=== PATIENT | female | born 1945 | race Caucasian/White ===

== ENCOUNTER 2016-09-10 17:45 | Emergency (ER) | payer OTHER ==
[2016-09-10 18:09] VITALS: BP 137/84; PULSE 90; TEMP 98.7; BMI 38.4
[2016-09-10] MEDS ORDERED: LIDOCAINE 5% TOPICAL PATCH TP ONE (18:51)
[2016-09-10] MEDS ORDERED: traMADol HCL 50 MG TABLET PO ONE (18:51)
[2016-09-10] MEDS ORDERED: traMADol HCL 50 MG TABLET ONE (18:55)
[2016-09-10] MEDS ORDERED: LIDOCAINE 5% TOPICAL PATCH ONE (18:55)
--- NOTE | 2016-09-10 19:10 | PDOC ---
History of Present Illness - General Chief Complaint: Back Pain Stated Complaint: BACK PAIN Time Seen by Provider: 09/10/16 18:28 History Source: Patient - History of Present Illness Occurred: reports: other Pain Location: reports: back Past History - Past Medical History Allergies/Adverse Reactions: Allergies Allergy/AdvReac Type Severity Reaction Status Date / Time No Known Drug Allergies Allergy Verified 09/10/16 18:06 Home Medications: Ambulatory Orders Aspirin 81 mg PO DAILY 06/05/13 Atorvastatin Ca [Lipitor] 40 mg PO HS #0 tablet 06/06/13 Febuxostat [Uloric -] 40 mg PO HS 09/25/13 Nebivolol [Bystolic -] 5 mg PO HS 11/05/14 Valsartan [Diovan] 320 mg PO HS 11/05/14 Alprazolam [Xanax] 0.5 mg PO PRN 07/17/15 Oxycodone HCl [Oxycodone HCl ER] 10 mg PO TID 07/17/15 Zolpidem Tartrate [Ambien] 10 mg PO HS 07/17/15 Lidocaine 5% Patch [Lidoderm Patch -] 1 patch TP DAILY #14 patch 09/10/16 Anemia: No Asthma: No Cancer: No Cardiac Disorders: No CVA: No COPD: No CHF: No Dementia: No Diabetes: Yes (Borderline/No meds/Diet managed) GI Disorders: No Disorders: No HTN: Yes Hypercholesterolemia: Yes Kidney Stones: Yes Liver Disease: No Seizures: No Thyroid Disease: No - Surgical History Abdominal Surgery: No Appendectomy: No Cardiac Surgery: No Cholecystectomy: Yes (1979) Lung Surgery: No Neurologic Surgery: No Orthopedic Surgery: Yes (Bilateral knee replacement-10 YEARS AGO) - Family Disease History Family Disease History: Other: Sister (back sx) - Immunization History Immunization Up to Date: Yes - Psycho/Social/Smoking Cessation Hx Anxiety: No Suicidal Ideation: No Smoking Status: No Smoking History: Never smoked Have you smoked in the past 12 months: No Number of Cigarettes Smoked Daily: 0 Hx Alcohol Use: No Drug/Substance Use Hx: No Substance Use Type: None Hx Substance Use Treatment: No Trauma Specific PMHX - Complaint Specific PMHX Arthritis: No Back Injury: Yes Review of Systems - Review of Systems Constitutional: No: Chills, Fever, Unexplained wgt Loss : No: Burning, Dysuria, Hematuria Musculoskeletal: Yes: Back Pain Neurological: No: Numbness, Tingling, Weakness *Physical Exam - Vital Signs Last Vital Signs Temp Pulse Resp BP Pulse Ox 98.7 F 90 19 137/84 96 09/10/16 18:07 09/10/16 18:07 09/10/16 18:07 09/10/16 18:07 09/10/16 18:07 - Physical Exam General Appearance: Yes: Appropriately Dressed, Mild Distress HEENT: positive: Normal Voice Neck: positive: Supple Respiratory/Chest: negative: Respiratory Distress Gastrointestinal/Abdominal: positive: Soft. negative: Tender Musculoskeletal: positive: Vertebral Tenderness (to L mid back). negative: CVA Tenderness Extremity: positive: Normal Inspection Integumentary: positive: Dry, Warm Neurologic: positive: Fully Oriented, Alert, Normal Mood/Affect ED Treatment Course - Medications Given in the ED: ED Medications Discontinued Medications Generic Name Dose Route Start Last Admin Trade Name Seamusq PRN Reason Stop Dose Admin Lidocaine 1 patch 09/10/16 18:51 09/10/16 19:00 Lidoderm Patch - TP 09/10/16 18:52 1 patch ONCE ONE Administration Tramadol HCl 50 mg 09/10/16 18:51 09/10/16 19:00 Ultram - PO 09/10/16 18:52 50 mg ONCE ONE Administration Medical Decision Making - Medical Decision Making 09/10/16 19:05 71 yo F, h/o HTN, HLD, DM, renal stones, chronic L mid back pain w/ DJD and herniated disc to L5-S1 as per records on MRI in the past, currently f/u with Dr Maharaj of pain management, p/w usual back pain x 3 weeks. Stats she saw Dr. Maharaj several times in the past 3 weeks and given "multiple injections in my back" as per patient, with no relief. Taking percocet at home also with no improvement in pain. States pain not simian to her kidney stones. No dysuria, hematuria, n/v/f/c. Saw her pmd yesterday and has US of her kidneys but does not yet know results. No lower extremity weakness, saddle anesthesia, bladder or bowel incontinence. No unexplained weight loss See exam Acute on chronic back pain No red flags at this time -pain control in ED and reassess 09/10/16 19:30 Pt reports some improvement in pain and requesting discharge. Rx for lidoderm sent to pharmacy. Pt to continue f/u with pain MD *DC/Admit/Observation/Transfer Diagnosis at time of Disposition: Mid back pain on left side - Discharge Dispostion Disposition: HOME Condition at time of disposition: Improved - Prescriptions Prescriptions: Lidocaine 5% Patch [Lidoderm Patch -] 1 patch TP DAILY #14 patch - Patient Instructions Printed Discharge Instructions: DI for Thoracic Back Pain Additional Instructions: Use lidoderm patches as directed Continue to follow up with your pain management doctor
[2016-09-10] MEDS ORDERED: LIDOCAINE PATCH REMOVAL MC SCH (22:00)
== END 2016-09-10 19:39 | disposition home or self-care (01) ==
LOC: JERFT 17:45
DX: M54.89 Other dorsalgia (principal); M51.37 Other intervertebral disc degeneration, lumbosacral region; M51.27 Other intervertebral disc displacement, lumbosacral region; I10 Essential (primary) hypertension; E11.9 Type 2 diabetes mellitus without complications; E78.00 Pure hypercholesterolemia, unspecified; Z87.442 Personal history of urinary calculi
CPT/HCPCS: 99281-25

== ENCOUNTER 2016-09-14 15:57 | Emergency (ER) | payer OTHER ==
[2016-09-14 16:29] VITALS: BMI 38.6
[2016-09-14] MEDS ORDERED: diazePAM 2 MG TABLET PO ONE (18:09)
[2016-09-14] MEDS ORDERED: KETOROLAC TROMETHAMINE 60 MG/2 ML VIAL IM ONE (18:09)
[2016-09-14 18:17] LABS: URINE APPEARANCE CLEAR; URINE BILIRUBIN NEGATIVE (NEGATIVE); URINE BLOOD NEGATIVE (NEGATIVE); URINE COLOR YELLOW; URINE GLUCOSE (UA) NEGATIVE (NEGATIVE); URINE KETONE NEGATIVE (NEGATIVE); URINE LEUK ESTERASE NEGATIVE (NEGATIVE); URINE NITRITE NEGATIVE (NEGATIVE); URINE PROTEIN NEGATIVE (NEGATIVE); URINE UROBILINOGEN NEGATIVE mg/dL (0.2-1.0)
--- NOTE | 2016-09-14 18:24 | PDOC ---
History of Present Illness - General History Source: Patient Exam Limitations: No Limitations - History of Present Illness Initial Comments: 09/14/16 18:47 The patient is a 71 year old female, with a significant past medical history of HTN, DM, HLD who presents to the emergency department with mid- lower back pain for the past 3 weeks. The patient states her back pain radiates to her L leg and is exacerbated with any movement. Patient reports taking Motrin and percocet 4-5x/day with minimal relief. Patient also reports dysuria for the past 3 weeks that has been resolving. Patient presents to the ED for further evaluation. She denies chest pain, headache or dizziness. She denies fever, chills, abdominal pain, nausea, vomit, diarrhea or constipation. She denied frequency, urgency or hematuria. Allergies: NKA Past surgical history: Cholecystectomy, Bilateral knee replacement Social history: None PCP: Dr. Tran <Erna Gonzalez - Last Filed: 09/14/16 18:46> <Romie Hawkins - Last Filed: 09/15/16 07:57> - General Chief Complaint: Back Pain Stated Complaint: BACK PAIN Time Seen by Provider: 09/14/16 17:37 Past History <Erna Gonzalez - Last Filed: 09/14/16 18:46> - Past Medical History Anemia: No Asthma: No Cancer: No Cardiac Disorders: No CVA: No COPD: No CHF: No Dementia: No Diabetes: Yes (Borderline/No meds/Diet managed) GI Disorders: No Disorders: No HTN: Yes Hypercholesterolemia: Yes Kidney Stones: Yes Liver Disease: No Seizures: No Thyroid Disease: No - Surgical History Abdominal Surgery: No Appendectomy: No Cardiac Surgery: No Cholecystectomy: Yes (1979) Lung Surgery: No Neurologic Surgery: No Orthopedic Surgery: Yes (Bilateral knee replacement-10 YEARS AGO) - Family Disease History Family Disease History: Other: Sister (back sx) - Immunization History Immunization Up to Date: Yes - Psycho/Social/Smoking Cessation Hx Anxiety: No Suicidal Ideation: No Smoking Status: No Smoking History: Never smoked Have you smoked in the past 12 months: No Number of Cigarettes Smoked Daily: 0 Information on smoking cessation initiated: No Hx Alcohol Use: No Drug/Substance Use Hx: No Substance Use Type: None Hx Substance Use Treatment: No <Romie Hawkins - Last Filed: 09/15/16 07:57> - Past Medical History Allergies/Adverse Reactions: Allergies Allergy/AdvReac Type Severity Reaction Status Date / Time No Known Drug Allergies Allergy Verified 09/14/16 16:18 Home Medications: Ambulatory Orders Aspirin 81 mg PO DAILY 06/05/13 Atorvastatin Ca [Lipitor] 40 mg PO HS #0 tablet 06/06/13 Febuxostat [Uloric -] 40 mg PO HS 09/25/13 Nebivolol [Bystolic -] 5 mg PO HS 11/05/14 Valsartan [Diovan] 320 mg PO HS 11/05/14 Alprazolam [Xanax] 0.5 mg PO PRN 07/17/15 Oxycodone HCl [Oxycodone HCl ER] 10 mg PO TID 07/17/15 Zolpidem Tartrate [Ambien] 10 mg PO HS 07/17/15 Lidocaine 5% Patch [Lidoderm Patch -] 1 patch TP DAILY #14 patch 09/10/16 Trauma Specific PMHX - Complaint Specific PMHX Arthritis: No Back Injury: Yes <Romie Hawkins - Last Filed: 09/15/16 07:57> Review of Systems - Review of Systems Able to Perform ROS?: Yes Comments:: 09/14/16 18:47 CONSTITUTIONAL: No reported: Fever, Chills, Diaphoresis, Generalized Weakness, Malaise, Loss of Appetite HEENT: No reported: Rhinorrhea, Nasal Congestion, Throat Pain, Throat Swelling, Difficulty Swallowing, Mouth Swelling, Ear Pain, Eye Pain, Visual Changes CARDIOVASCULAR: No reported: Chest Pain, Syncope, Palpitations, Irregular Heart Rate, Lightheadedness, Peripheral Edema RESPIRATORY: No reported: Cough, Shortness of Breath, SOB with Exertion, Orthopnea, Wheezing , Stridor, Hemoptysis GASTROINTESTINAL: No reported: Abdominal pain, Abdominal Distension, Nausea, Vomiting, Diarrhea, Constipation, Melena, Hematochezia GENITOURINARY: No reported: Dysuria, Frequency, Urgency, Hesitancy, Flank Pain, Genital Pain MUSCULOSKELETAL:+ Back pain No reported: Myalgia, Arthralgia, Joint Swelling, Neck Pain SKIN: No reported: Rash, Itching, Pallor HEMATOLOGIC/IMMUNOLOGIC: No reported: Easy Bleeding, Easy Bruising, Lymphadenopathy, Frequent infections ENDOCRINE: No reported: Unexplained Weight Gain, Unexplained Weight Loss, Heat Intolerance , Cold Intolerance NEUROLOGIC: No reported: Headache, Focal Weakness, Paresthesias, Vertigo, Lightheadedness, Unsteady Gait, Seizure, Mental Status Changes, Incontinence PSYCHIATRIC: No reported: Anxiety, Depression <CarlosErna - Last Filed: 09/14/16 18:46> *Physical Exam - Vital Signs Last Vital Signs Temp Pulse Resp BP Pulse Ox 98.0 F 86 16 141/75 95 09/14/16 16:19 09/14/16 16:19 09/14/16 16:19 09/14/16 16:19 09/14/16 16:19 - Physical Exam Comments: 09/14/16 18:47 GENERAL: The patient is awake, alert, and fully oriented, Nontoxic - in no acute distress. HEAD: Normocephalic, atraumatic. EYES: extraocular movements intact, sclera anicteric, conjunctiva clear. ENT: Normal voice, Moist mucous membranes. NECK: Normal range of motion, No JVD LUNGS: Breath sounds equal, clear to auscultation bilaterally. No wheezes, no rhonchi, no rales. HEART: Regular rate and rhythm, normal S1 and S2 without murmur, rub or gallop. ABDOMEN: Soft, nontender, normoactive bowel sounds. No guarding, no rebound. No masses. No CVA tenderness EXTREMITIES: Normal range of motion, no edema. No clubbing or cyanosis. No cords , erythema, or tenderness.+Focal tenderness to mid to lower back. NEUROLOGICAL: No facial asymmetry, Normal speech, normal gait. PSYCH: Normal mood, normal affect. SKIN: Warm, Dry, normal turgor. <Erna Gonzalez - Last Filed: 09/14/16 18:46> - Vital Signs Last Vital Signs Temp Pulse Resp BP Pulse Ox 98.0 F 86 16 141/75 95 09/14/16 16:19 09/14/16 16:19 09/14/16 16:19 09/14/16 16:19 09/14/16 16:19 <Romie Hawkins - Last Filed: 09/15/16 07:57> ED Treatment Course - ADDITIONAL ORDERS Additional order review: Laboratory Results 09/14/16 18:00 Urine Color Yellow Urine Appearance Clear Urine pH 5.0 D Urine Protein Negative Urine Glucose (UA) Negative Urine Ketones Negative Urine Blood Negative Urine Nitrite Negative Urine Bilirubin Negative Urine Urobilinogen Negative Ur Leukocyte Esterase Negative <Erna Gonzalez - Last Filed: 09/14/16 18:46> Medical Decision Making - Medical Decision Making 09/14/16 18:10 71y F hx of chronic back pain presents with atraumatic L sided back pain that is similar in nature to previous episodes. No numbnes/tingling/weakness, urinary or bwel incontinence. +dysuria at onset of symptoms, but has since resolved. n ofever/chills. on exam pt has focal tenderness in the L lumbar region, no midline tenderness. will give toradol and small dose of valium as i suspect this is a muscle spasm 09/14/16 19:42 pt signed out to dr. Ramsey to reassess the pt <Romie Hawkins - Last Filed: 09/15/16 07:57> *DC/Admit/Observation/Transfer - Attestations Scribe Attestion: 09/14/16 18:47 Documentation prepared by Erna Gonzalez, acting as medical logistics specialist for Romie Hawkins MD <Erna Gonzalez - Last Filed: 09/14/16 18:46> <Romie Hawkins - Last Filed: 09/15/16 07:57> Diagnosis at time of Disposition: Eloped - Discharge Dispostion Disposition: ELOPED - Referrals Referrals: Quiana Tran MD [Primary Care Provider] -
[2016-09-14 20:04] VITALS: BP 135/72; PULSE 82; TEMP 98.1
== END 2016-09-14 20:39 | disposition left against medical advice (07) ==
LOC: JER 15:57
DX: M54.5 Low back pain (principal); I10 Essential (primary) hypertension; E78.00 Pure hypercholesterolemia, unspecified; E11.9 Type 2 diabetes mellitus without complications
CPT/HCPCS: 81003; 87086; 99282-25

== ENCOUNTER 2018-11-06 11:12 | Emergency (ER) | payer OTHER ==
[2018-11-06 11:20] VITALS: BP 157/80; PULSE 81; BMI 41.5
[2018-11-06 11:42] VITALS: TEMP 99.1
[2018-11-06] MEDS ORDERED: morphine CARPU-JECT 2 MG/1 ML DISP.SYRIN IM ONE (12:01)
--- NOTE | 2018-11-06 12:06 | PDOC ---
History of Present Illness - General Chief Complaint: Injury Stated Complaint: FALL Time Seen by Provider: 11/06/18 12:06 History Source: Patient Exam Limitations: No Limitations - History of Present Illness Initial Comments: 11/06/18 12:24 Bruce Houston is a 73yF w PMHx w PMHx HTN HLD DM chronic pain presenting w head injury s/p fall. 1 hour ago, tripped over something in garage, fell down, hitting L temporal head, L chest. Currently has pain at L chest underneath breast, L antecubital region, neck, midline and paraspinal thoracic regions. No LOC, vomiting. Did not attempt to ambulate after fall. Denies fever, headache, SOB, AB pain, numbness/tingling. Not on blood thinners. Takes up to 3 percocets PRN daily for chronic pain. Past History - Past Medical History Allergies/Adverse Reactions: Allergies Allergy/AdvReac Type Severity Reaction Status Date / Time No Known Drug Allergies Allergy Verified 11/06/18 11:53 Home Medications: Ambulatory Orders Aspirin 81 mg PO DAILY 06/05/13 Atorvastatin Ca [Lipitor] 40 mg PO HS #0 tablet 06/06/13 Febuxostat [Uloric -] 40 mg PO HS 09/25/13 Nebivolol [Bystolic -] 5 mg PO HS 11/05/14 Alprazolam [Xanax] 0.5 mg PO PRN 07/17/15 Oxycodone HCl [Oxycodone HCl ER] 10 mg PO TID 07/17/15 Zolpidem Tartrate [Ambien] 10 mg PO HS 07/17/15 Lidocaine 5% Patch [Lidoderm Patch -] 1 patch TP DAILY #14 patch 09/10/16 Anemia: No Asthma: No Cancer: No Cardiac Disorders: No CVA: No COPD: No CHF: No Dementia: No Diabetes: Yes (Borderline/No meds/Diet managed) GI Disorders: No Disorders: No HTN: Yes Hypercholesterolemia: Yes Kidney Stones: Yes Liver Disease: No Seizures: No Thyroid Disease: No - Surgical History Abdominal Surgery: No Appendectomy: No Cardiac Surgery: No Cholecystectomy: Yes (1979) Lung Surgery: No Neurologic Surgery: No Orthopedic Surgery: Yes (Bilateral knee replacement-10 YEARS AGO) - Family Disease History Family Disease History: Other: Sister (back sx) - Immunization History Immunization Up to Date: Yes - Suicide/Smoking/Psychosocial Hx Smoking Status: No Smoking History: Never smoked Have you smoked in the past 12 months: No Number of Cigarettes Smoked Daily: 0 Hx Alcohol Use: No Drug/Substance Use Hx: No Substance Use Type: None Hx Substance Use Treatment: No Trauma Specific PMHX - Complaint Specific PMHX Arthritis: No Back Injury: Yes Review of Systems - Review of Systems Constitutional: No: Chills, Fever HEENTM: No: Eye Pain, Recent change in vision, Nose Pain, Throat Pain, Mouth Pain Respiratory: No: Cough, Shortness of Breath Cardiac (ROS): Yes: Chest Pain (Left). No: Palpitations, Syncope ABD/GI: No: Abdominal Distended, Constipated, Diarrhea, Nausea, Vomiting : No: Burning, Dysuria, Discharge, Flank Pain, Hematuria, Incontinence Musculoskeletal: Yes: Back Pain (thoracic). No: Joint Pain, Muscle Pain, Muscle Weakness Integumentary: No: Bruising, Flushing, Lesions Neurological: No: Headache, Numbness, Paresthesia, Seizure, Tingling, Tremors, Weakness Psychiatric: No: Anxiety, Depression, Stressors Endocrine: No: Excessive Sweating, Flushing, Intolerance to Cold, Intolerance to Heat Hematologic/Lymphatic: No: Anemia, Blood Clots, Easy Bleeding *Physical Exam - Vital Signs Last Vital Signs Temp Pulse Resp BP Pulse Ox 99.1 F 81 18 157/80 96 11/06/18 11:37 11/06/18 11:18 11/06/18 11:18 11/06/18 11:18 11/06/18 11:18 - Physical Exam General Appearance: Yes: Nourished, Appropriately Dressed. No: Apparent Distress HEENT: positive: EOMI, LACHELLE, Normal Voice, Hearing Grossly Normal. negative: Scleral Icterus (R), Scleral Icterus (L), Nasal Congestion, Rhinorrhea Neck: positive: Trachea midline, Supple, Tender lateral, Tender midline. negative: Rigid Respiratory/Chest: positive: Chest Tender (L chest underneath breast tissue, L antecubital region), Lungs Clear, Normal Breath Sounds. negative: Respiratory Distress, Crackles, Rales, Rhonchi, Stridor, Wheezing Cardiovascular: positive: Regular Rhythm, Regular Rate, S1, S2. negative: Edema , Murmur Gastrointestinal/Abdominal: positive: Normal Bowel Sounds, Flat, Soft. negative : Tender, Organomegaly, Hernia Musculoskeletal: positive: Vertebral Tenderness (cervical, thoracic), Other (L thoracic paraspinal tenderness, no step-offs) Extremity: positive: Normal Capillary Refill Integumentary: positive: Normal Color Neurologic: positive: lead ingot molder II-XII NML intact, Fully Oriented, Alert, Normal Mood/ Affect, Normal Response, Motor Strength 5/5, Respond to painful stimul, Responsive. negative: Sensory Deficit, Confused, Disoriented Medical Decision Making - Medical Decision Making 11/06/18 12:28 Head c-spine chest thoracic CT - no acute bleed/infarct/fracture/subluxation, multilevel degenerative disc disease, facet hypertrophy. Focal opacity in right upper lobe abutting fissure 2x2cm, recommend follow up CT 2-3weeks. 2 morphine did not help. Ordered 1 percocet C-collar placed for potential cervical injury. Taken off after CT cleared Bruce Houston is a 73yF w PMHx w PMHx HTN HLD DM chronic pain presenting w head injury s/p mechanical fall. Pain likely MSK strain. Neuro intact. Clear breath sounds all lung mitchell, normal O2 sats lowering concern for pneumothorax. Head/c -spine/chest/thoracic CT shows no acute bleed/infarct/fracture/subluxation. C- collar temporarily placed for potential cervical injury, taken off after CT cleared. Given 2 morphine, 1 percocet for pain relief. Pt notified about focal lung opacity on imaging. D/c home w instructions for PCP f/u for imaging finding. *DC/Admit/Observation/Transfer Diagnosis at time of Disposition: Musculoskeletal pain, Opacity of lung on imaging study Accidental fall Qualifiers: Encounter type: initial encounter Qualified Code(s): W19.XXXA - Unspecified fall, initial encounter - Discharge Dispostion Disposition: HOME Condition at time of disposition: Improved Decision to Admit order: No - Referrals Referrals: Quiana Tran MD [Primary Care Provider] - - Patient Instructions Printed Discharge Instructions: How to Prevent Falls Additional Instructions: You were seen for chest pain after a fall. Your imaging does not show any bleeding or fracture. A small spot was found on your lung images Please follow up with your primary care doctor regarding your imaging finding. Take tylenol or ibuprofen if you continue to have pain. Come back to the ED if you have worsening pain, vomit, or have trouble breathing - Post Discharge Activity
[2018-11-06] MEDS ORDERED: MORPHINE SULFATE 2 MG/ML VIAL ONE (12:08)
--- NOTE | 2018-11-06 12:34 | PDOC ---
Attending Attestation - Resident Resident Name: Dayton De La Rosa - ED Attending Attestation I have performed the following: I have examined & evaluated the patient, The case was reviewed & discussed with the resident, I agree w/resident's findings & plan, Exceptions are as noted - HPI HPI: 11/06/18 12:31 73 F with h/o HTN, HLD, DM, chronic pain, presenting to ED after trip and fal. Pt states that she tripped over a piece of wood in her garage, falling onto her L side. Pt endorses headstrike without LOC. Now complains of pain in her L ribcage, neck, and upper back. Pt denes SOB. Denies weakness/numbness in any extremity. Denies inconinence. - Physicial Exam PE: 11/06/18 12:33 "GENERAL: Awake, alert, and fully oriented, in no acute distress. HEAD: No signs of trauma EYES: PERRLA, EOMI, sclera anicteric, conjunctiva clear ENT: Auricles normal inspection, hearing grossly normal, nares patent, oropharynx clear without exudates. Moist mucosa NECK: + cervical and thoracic paraspinal TTP, no stepoffs, Normal ROM, supple, no lymphadenopathy, JVD, or masses LUNGS: Breath sounds equal, clear to auscultation bilaterally. No wheezes, and no crackles HEART: Regular rate and rhythm, normal S1 and S2, no murmurs, rubs or gallops ABDOMEN: Soft, nontender, normoactive bowel sounds. No guarding, no rebound. No masses EXTREMITIES: Normal range of motion, no edema. No clubbing or cyanosis. No cords, erythema, or tenderness NEUROLOGICAL: Cranial nerves II through XII intact. 5/5 strength and sensation in all extremities, Normal speech, normal gait, normal cerebellar function SKIN: Warm, Dry, normal turgor, no rashes or lesions noted. - Medical Decision Making 11/06/18 12:34 73 F with mechanical fall. - CT head/c-spine/t-sine - CT chest 11/06/18 14:40 CTs unremarkable Lung nodule noted, pt informed and instructed to f/u with PMD Pt is well appearing, with normal vitals. Clinically stable for DC at this time. I discussed the physical exam findings, ancillary test results and final diagnoses with the patient. I answered all of the patient's questions. The patient was satisfied with the care received and felt comfortable with the discharge plan and treatment plan. The patient agrees to follow up with the primary care physician within 24-72 hours.
== END 2018-11-06 15:20 | disposition home or self-care (01) ==
LOC: JER 11:12
PROC: 3E023NZ Introduction of Analgesics, Hypnotics, Sedatives into Muscle, Percutaneous Approach (ICD-10-PCS; principal; 2018-11-06)
DX: S09.8XXA Other specified injuries of head, initial encounter (principal); M54.2 Cervicalgia; M54.6 Pain in thoracic spine; R07.9 Chest pain, unspecified; R91.8 Other nonspecific abnormal finding of lung field; W01.0XXA Fall on same level from slipping, tripping and stumbling without subsequent striking against object, initial encounter; Y93.89 Activity, other specified; Y92.015 Private garage of single-family (private) house as the place of occurrence of the external cause; Y99.8 Other external cause status; I10 Essential (primary) hypertension; E78.5 Hyperlipidemia, unspecified; E11.9 Type 2 diabetes mellitus without complications
CPT/HCPCS: 70450-TC; 71250-TC; 72125-TC; 72128-TC; 96372; 99282-25

== ENCOUNTER 2019-01-08 08:57 | Emergency (ER) | payer OTHER ==
[2019-01-08 09:10] VITALS: BP 172/80; PULSE 73; TEMP 98.1; BMI 41.8
[2019-01-08] MEDS ORDERED: morphine CARPU-JECT 4 MG/1 ML DISP.SYRIN IM ONE (09:13)
[2019-01-08] MEDS ORDERED: ONDANSETRON *ODT* 4 MG TABLET SL ONE (09:16)
--- NOTE | 2019-01-08 09:24 | PDOC ---
History of Present Illness - General Chief Complaint: Chronic pain Stated Complaint: BACK PAIN Time Seen by Provider: 01/08/19 09:10 History Source: Patient - History of Present Illness Occurred: reports: other Severity: reports: moderate Pain Location: reports: back Past History - Past Medical History Allergies/Adverse Reactions: Allergies Allergy/AdvReac Type Severity Reaction Status Date / Time No Known Drug Allergies Allergy Verified 01/08/19 09:07 Home Medications: Ambulatory Orders Aspirin 81 mg PO DAILY 06/05/13 Atorvastatin Ca [Lipitor] 40 mg PO HS #0 tablet 06/06/13 Febuxostat [Uloric -] 40 mg PO HS 09/25/13 Nebivolol [Bystolic -] 5 mg PO HS 11/05/14 Alprazolam [Xanax] 0.5 mg PO PRN 07/17/15 Oxycodone HCl [Oxycodone HCl ER] 10 mg PO TID 07/17/15 Zolpidem Tartrate [Ambien] 10 mg PO HS 07/17/15 Lidocaine 5% Patch [Lidoderm Patch -] 1 patch TP DAILY #14 patch 09/10/16 Docusate Sodium [Colace] 100 mg PO DAILY #30 capsule 01/08/19 Oxycodone HCl/Acetaminophen [Percocet 5-325 mg Tablet] 1 - 2 tab PO Q6H #20 tab MDD 4 doses 01/08/19 Anemia: No Asthma: No Cancer: No Cardiac Disorders: No CVA: No COPD: No CHF: No Dementia: No Diabetes: Yes (Borderline/No meds/Diet managed) GI Disorders: No Disorders: No HTN: Yes Hypercholesterolemia: Yes Kidney Stones: Yes Liver Disease: No Seizures: No Thyroid Disease: No Other medical history: chronic back pain - Surgical History Abdominal Surgery: No Appendectomy: No Cardiac Surgery: No Cholecystectomy: Yes (1979) Lung Surgery: No Neurologic Surgery: No Orthopedic Surgery: Yes (Bilateral knee replacement-10 YEARS AGO) - Immunization History Immunization Up to Date: Yes - Psycho Social/Smoking Cessation Hx Smoking Status: No Smoking History: Unknown if ever smoked Have you smoked in the past 12 months: No Number of Cigarettes Smoked Daily: 0 Hx Alcohol Use: No Drug/Substance Use Hx: No Substance Use Type: None Hx Substance Use Treatment: No Trauma Specific PMHX - Complaint Specific PMHX Arthritis: No Back Injury: Yes Review of Systems - Review of Systems Constitutional: No: Chills, Fever ABD/GI: Yes: Nausea. No: Vomiting, Abdominal cramping : No: Burning, Dysuria, Flank Pain, Hematuria *Physical Exam - Vital Signs Last Vital Signs Temp Pulse Resp BP Pulse Ox 98.1 F 73 18 172/80 H 95 01/08/19 09:07 01/08/19 09:07 01/08/19 09:07 01/08/19 09:07 01/08/19 09:07 - Physical Exam General Appearance: Yes: Appropriately Dressed, Moderate Distress HEENT: positive: Normal Voice Neck: positive: Supple Respiratory/Chest: negative: Respiratory Distress Gastrointestinal/Abdominal: positive: Soft. negative: Tender, Pulsatile Mass Musculoskeletal: negative: CVA Tenderness, Vertebral Tenderness Extremity: positive: Normal Inspection Integumentary: positive: Dry, Warm Neurologic: positive: Fully Oriented, Alert, Normal Mood/Affect, Motor Strength 5/5 Medical Decision Making - Medical Decision Making 01/08/19 09:17 73-year-old female history of HTN, HLD, DM, renal stone, chronic lower back pain with multiple disc bulge with nerve impingement to LS spine on MRI 12/2018 , BIB daughter for pt's usual lower back pain. Patient states she was seen by her pain MD 3 days ago and given an injection which usually helps but this time states pain persists. Limited to lower back with no acute sensory changes, lower extremity weakness or incontinence. States percocet has helped her pain in the past but has since ran out. States since in ED she has become nauseous but states she usually get nauseous when pain is severe. No dysuria, hematuria fever or chills see exam Acute on chronic LBP, unlikely renal colic No neuro sxs No infectious sxs S/p injection by pain MD 3 days ago w/ no relief Ran out her percocet Hu uncomfortable here but ambulatory w/ no e/o red flags, i.e cauda equina, dissection, etc -pain control>reassess 01/08/19 09:31 01/08/19 10:36 Patient reports feeling significantly better with morphine and requesting discharge. Dc with pain control. To continue f/u with pain management Discharge - Discharge Information Problems reviewed: Yes Clinical Impression/Diagnosis: Low back pain Qualifiers: Chronicity: chronic Back pain laterality: unspecified Sciatica presence: without sciatica Qualified Code(s): M54.5 - Low back pain Condition: Improved Disposition: HOME - Additional Discharge Information Prescriptions: Docusate Sodium [Colace] 100 mg PO DAILY #30 capsule Oxycodone HCl/Acetaminophen [Percocet 5-325 mg Tablet] 1 - 2 tab PO Q6H #20 tab MDD 4 doses - Follow up/Referral - Patient Discharge Instructions Patient Printed Discharge Instructions: DI for Low Back Pain Additional Instructions: Take medication as prescribed and follow-up with your pain doctor this week Return to ER for worsening of symptoms as discussed today - Post Discharge Activity
== END 2019-01-08 10:00 | disposition home or self-care (01) ==
LOC: JER 08:57
PROC: 3E023NZ Introduction of Analgesics, Hypnotics, Sedatives into Muscle, Percutaneous Approach (ICD-10-PCS; principal; 2019-01-08)
DX: M54.5 Low back pain (principal); I10 Essential (primary) hypertension; E78.00 Pure hypercholesterolemia, unspecified; E11.9 Type 2 diabetes mellitus without complications; Z87.442 Personal history of urinary calculi; Z96.653 Presence of artificial knee joint, bilateral; Z90.49 Acquired absence of other specified parts of digestive tract
CPT/HCPCS: 99282-25; Q0162

== ENCOUNTER 2020-08-15 11:44 | Observation (INO) | payer OTHER ==
[2020-08-15 12:44] LABS: BASO % 0.4 % (0-2.0); EOS % 2.3 % (0-4.5); HEMATOCRIT 41.5 % (32.4-45.2); HEMOGLOBIN 13.6 GM/dL (10.7-15.3); LYMPH % 25.3 % (8-40); MCH 28.3 pg (25.7-33.7); MCHC 32.7 g/dl (32.0-36.0); MEAN CELL VOLUME 86.6 fl (80-96); MEAN PLT VOLUME 7.7 fl (7.5-11.1); MONO % 7.2 % (3.8-10.2); NEUT % 64.8 % (42.8-82.8); PLATELET COUNT 271 10^3/uL (134-434); RBC 4.79 M/mm3 (3.60-5.2); RDW 15.2 % (11.6-15.6); WHITE BLOOD COUNT 7.8 K/mm3 (4.0-10.0)
[2020-08-15 13:06] LABS: CHLORIDE 101 mmol/L (98-107); SODIUM 137 mmol/L (136-145)
[2020-08-15 13:08] LABS: ALBUMIN 3.6 g/dl (3.4-5.0); ANION GAP 8 MMOL/L (8-16); CALCIUM 8.5 mg/dL (8.5-10.1); CO2 28 mmol/L (21-32); GLUCOSE,RANDOM 96 mg/dL (74-106); INR 0.97 (0.83-1.09); PROTHROMBIN TIME (PATIENT) 11.9 SEC (9.7-13.0)
[2020-08-15 13:09] LABS: BLOOD UREA NITROGEN 25.5 mg/dL (7-18)
[2020-08-15 13:11] LABS: ACTIVATED PTT 28.9 SECONDS (25.2-36.5)
[2020-08-15 13:12] LABS: CREATININE 0.8 mg/dL (0.55-1.3); SGOT/AST 36 U/L (15-37); SGPT/ALT 39 U/L (13-61)
[2020-08-15 13:13] LABS: BILIRUBIN,TOTAL 0.6 mg/dL (0.2-1); TOT PROT 7.6 g/dl (6.4-8.2)
[2020-08-15 13:14] LABS: ALK PHOS 75 U/L (45-117)
[2020-08-15 13:17] LABS: N-TERMINAL BNP 89.7 pg/ml (5-450)
[2020-08-15 13:31] LABS: VENOUS BASE EXCESS 1.9 mmol/L (-2-2); VENOUS O2 SATURATION 88.3 % (70-80); VENOUS PCO2 43.9 mmHg (38-52); VENOUS PH 7.407 (7.310-7.410)
[2020-08-15] MEDS ORDERED: ACETAMINOPHEN 1000 MG/100 ML VIAL (NON FORMULARY) IVPB ONE (20:20)
[2020-08-15] MEDS ORDERED: ACETAMINOPHEN INJECTION 100 ML IVPB ONE (20:28)
[2020-08-16] MEDS ORDERED: ALPRAZolam 1 MG TABLET PO PRN (01:28)
[2020-08-16] MEDS ORDERED: oxyCODONE HCL 5 MG TABLET PO PRN ×2 (04:06→04:07)
[2020-08-16] MEDS ORDERED: ACETAMINOPHEN 325 MG TABLET (FP) PO PRN (04:06)
[2020-08-16 04:15] VITALS: BMI 42.0
[2020-08-16 06:34] LABS: BASO % 0.3 % (0-2.0); EOS % 2.4 % (0-4.5); HEMATOCRIT 39.5 % (32.4-45.2); HEMOGLOBIN 12.9 GM/dL (10.7-15.3); LYMPH % 22.9 % (8-40); MCH 28.4 pg (25.7-33.7); MCHC 32.6 g/dl (32.0-36.0); MEAN CELL VOLUME 87.3 fl (80-96); MEAN PLT VOLUME 7.7 fl (7.5-11.1); MONO % 8.3 % (3.8-10.2); NEUT % 66.1 % (42.8-82.8); PLATELET COUNT 256 10^3/uL (134-434); RBC 4.53 M/mm3 (3.60-5.2); RDW 15.3 % (11.6-15.6); WHITE BLOOD COUNT 7.2 K/mm3 (4.0-10.0)
[2020-08-16 06:52] LABS: CHLORIDE 102 mmol/L (98-107); SODIUM 139 mmol/L (136-145)
[2020-08-16 06:55] LABS: ANION GAP 6 MMOL/L (8-16); BLOOD UREA NITROGEN 22.8 mg/dL (7-18); CALCIUM 8.6 mg/dL (8.5-10.1); CO2 32 mmol/L (21-32)
[2020-08-16 06:56] LABS: ALBUMIN 3.4 g/dl (3.4-5.0); GLUCOSE,RANDOM 103 mg/dL (74-106)
[2020-08-16 06:59] LABS: CREATININE 0.7 mg/dL (0.55-1.3); SGOT/AST 18 U/L (15-37); SGPT/ALT 34 U/L (13-61)
[2020-08-16 07:00] LABS: BILIRUBIN,TOTAL 1.1 mg/dL (0.2-1); TOT PROT 6.8 g/dl (6.4-8.2)
[2020-08-16 07:01] LABS: ALK PHOS 71 U/L (45-117)
[2020-08-16 09:26] VITALS: BP 151/93; PULSE 86; TEMP 98.2
[2020-08-16] MEDS ORDERED: DOCUSATE SODIUM 100 MG CAPSULE (FP) PO SCH (10:00)
[2020-08-16] MEDS ORDERED: ASPIRIN 81 MG CHEWABLE TABLETS PO SCH (10:00)
[2020-08-16] MEDS ORDERED: INSULIN SLIDING SCALE (NOVOLOG) 1 VIAL SQ SCH (11:00)
[2020-08-16] MEDS ORDERED: ZOLPIDEM TARTRATE 5 MG TABLET PO PRN (22:00)
[2020-08-16] MEDS ORDERED: FEBUXOSTAT 40 MG TAB PO SCH (22:00)
[2020-08-16] MEDS ORDERED: NEBIVOLOL 5 MG TABLET (FP) PO SCH (22:00)
[2020-08-16] MEDS ORDERED: ATORVASTATIN CA 40 MG TABLET (FP) PO SCH (22:00)
== END 2020-08-16 12:09 | disposition home or self-care (01) ==
LOC: JER 11:44 → JERBED 22:04 → J4S 08-16 04:01
PROVIDERS: ADMIT Internal Medicine; ATTEND Family Medicine
PROC: 3E033NZ Introduction of Analgesics, Hypnotics, Sedatives into Peripheral Vein, Percutaneous Approach (ICD-10-PCS; principal; 2020-08-15)
DX: R07.1 Chest pain on breathing (principal); I10 Essential (primary) hypertension; E78.5 Hyperlipidemia, unspecified; E66.9 Obesity, unspecified; Z68.41 Body mass index [BMI] 40.0-44.9, adult; Z87.442 Personal history of urinary calculi; E11.9 Type 2 diabetes mellitus without complications
CPT/HCPCS: 36415; 71046-TC-FY; 71275-TC; 80053; 82550; 82803; 82962; 83880; 84484; 85025; 85379; 85610; 85730; 93005; 93010; 93971-TC; 96374; 99285-25; C9803; G0378; J0131; U0003; U0005

== ENCOUNTER 2020-09-02 23:53 | Inpatient (IN) | payer OTHER ==
[2020-09-03 01:06] LABS: BASO % 0.4 % (0-2.0); EOS % 0.6 % (0-4.5); HEMATOCRIT 40.6 % (32.4-45.2); HEMOGLOBIN 13.5 GM/dL (10.7-15.3); MCH 28.4 pg (25.7-33.7); MCHC 33.1 g/dl (32.0-36.0); MEAN CELL VOLUME 85.7 fl (80-96); MEAN PLT VOLUME 7.8 fl (7.5-11.1); MONO % 7.9 % (3.8-10.2); NEUT % 82.1 % (42.8-82.8); PLATELET COUNT 284 10^3/uL (134-434); RBC 4.74 M/mm3 (3.60-5.2); RDW 15.7 % (11.6-15.6); WHITE BLOOD COUNT 12.4 K/mm3 (4.0-10.0)
[2020-09-03 01:27] LABS: INR 0.95 (0.83-1.09); PROTHROMBIN TIME (PATIENT) 11.5 SEC (9.7-13.0)
[2020-09-03 01:29] LABS: ACTIVATED PTT 28.7 SECONDS (25.2-36.5); CHLORIDE 106 mmol/L (98-107); SODIUM 142 mmol/L (136-145)
[2020-09-03 01:31] LABS: ALBUMIN 3.7 g/dl (3.4-5.0); ANION GAP 9 MMOL/L (8-16); BLOOD UREA NITROGEN 40.2 mg/dL (7-18); CALCIUM 8.8 mg/dL (8.5-10.1); CO2 27 mmol/L (21-32); GLUCOSE,RANDOM 140 mg/dL (74-106)
[2020-09-03 01:33] LABS: SGPT/ALT 31 U/L (13-61)
[2020-09-03 01:35] LABS: CREATININE 1.2 mg/dL (0.55-1.3); SGOT/AST 20 U/L (15-37)
[2020-09-03 01:36] LABS: BILIRUBIN,TOTAL 0.4 mg/dL (0.2-1); TOT PROT 7.4 g/dl (6.4-8.2)
[2020-09-03 01:37] LABS: ALK PHOS 73 U/L (45-117)
[2020-09-03] MEDS ORDERED: dilTIAZem HCL 50 MG/10 ML - 10 ML VIAL IVPUSH ONE (01:45)
[2020-09-03] MEDS ORDERED: ACETAMINOPHEN 1000 MG/100 ML VIAL (NON FORMULARY) IVPB ONE (01:46)
[2020-09-03] MEDS ORDERED: ACETAMINOPHEN INJECTION 100 ML IVPB ONE (01:52)
[2020-09-03] MEDS ORDERED: dilTIAZem HCL 125 MG/25 ML - 25 ML VIAL ONE (01:53)
[2020-09-03] MEDS ORDERED: SODIUM CHLORIDE 0.9% 500 ML INFUS.BAG IV ONE (02:56)
[2020-09-03 03:07] LABS: LIPASE 88 U/L (73-393)
[2020-09-03] MEDS ORDERED: ASPIRIN 81 MG CHEWABLE TABLETS PO ONE (03:53)
[2020-09-03] MEDS ORDERED: ASPIRIN 81 MG CHEWABLE TABLETS ONE (04:08)
[2020-09-03] MEDS ORDERED: morphine CARPU-JECT 2 MG/1 ML DISP.SYRIN IVPUSH ONE (05:22)
[2020-09-03] MEDS ORDERED: MORPHINE SULFATE 2 MG/ML VIAL ONE (05:32)
[2020-09-03] MEDS ORDERED: FAMOTIDINE 20 MG/50 ML IVPB 20 MG/50 ML MG IVPB ONE (06:53)
[2020-09-03] MEDS ORDERED: oxyCODONE HCL 5 MG TABLET PO PRN (08:14)
[2020-09-03] MEDS ORDERED: ALPRAZolam 0.25 MG TABLET PO PRN (08:14)
[2020-09-03] MEDS ORDERED: METOPROLOL TARTRATE 25 MG TABLET (FP) ONE (09:47)
[2020-09-03] MEDS ORDERED: DOCUSATE SODIUM 100 MG CAPSULE (FP) PO ONE (09:48)
[2020-09-03] MEDS ORDERED: LIDOCAINE 5% TOPICAL PATCH ONE (09:48)
[2020-09-03] MEDS ORDERED: APIXABAN 5 MG TABLET ONE (09:48)
[2020-09-03] MEDS: APIXABAN 5 MG TABLET PO SCH ×2 (10:11→21:57)
[2020-09-03] MEDS: LIDOCAINE 5% TOPICAL PATCH TP SCH (10:11)
[2020-09-03] MEDS: DOCUSATE SODIUM 100 MG CAPSULE (FP) PO SCH ×2 (10:11→21:57)
[2020-09-03] MEDS: METOPROLOL TARTRATE 25 MG TABLET (FP) PO SCH ×2 (10:12→21:57)
[2020-09-03] MEDS: PANTOPRAZOLE SODIUM 40 MG VIAL IVPUSH SCH ×2 (10:13→21:58)
[2020-09-03 14:31] VITALS: BMI 42.5
[2020-09-03 15:07] LABS: BASO % 0.6 % (0-2.0); EOS % 1.9 % (0-4.5); HEMATOCRIT 37.8 % (32.4-45.2); HEMOGLOBIN 12.6 GM/dL (10.7-15.3); LYMPH % 18.9 % (8-40); MCH 28.6 pg (25.7-33.7); MCHC 33.4 g/dl (32.0-36.0); MEAN CELL VOLUME 85.6 fl (80-96); MEAN PLT VOLUME 7.5 fl (7.5-11.1); MONO % 7.7 % (3.8-10.2); NEUT % 70.9 % (42.8-82.8); PLATELET COUNT 260 10^3/uL (134-434); RBC 4.41 M/mm3 (3.60-5.2); RDW 16.2 % (11.6-15.6); WHITE BLOOD COUNT 7.2 K/mm3 (4.0-10.0)
[2020-09-03 16:43] LABS: ALBUMIN 3.3 g/dl (3.4-5.0); BILIRUBIN,TOTAL 0.7 mg/dL (0.2-1); CALCIUM 8.3 mg/dL (8.5-10.1); CREATININE 0.8 mg/dL (0.55-1.3)
[2020-09-03 21:22] LABS: MAGNESIUM 2.2 mg/dL (1.8-2.4)
[2020-09-03] MEDS: ATORVASTATIN CA 40 MG TABLET (FP) PO SCH (21:57)
[2020-09-03] MEDS: LIDOCAINE PATCH REMOVAL MC SCH (21:58)
[2020-09-03] MEDS: ZOLPIDEM TARTRATE 5 MG TABLET PO PRN (22:00)
[2020-09-04] MEDS: METOPROLOL TARTRATE 25 MG TABLET (FP) PO SCH ×2 (09:08→21:08)
[2020-09-04] MEDS ORDERED: REGADENOSON 0.4 MG/5 ML PRE-FILLED SYRINGE IVPUSH ONE ×2 (09:38→10:00)
[2020-09-04] MEDS ORDERED: PT OWN MED DRAWER 7, Y5N ONE (10:21)
[2020-09-04] MEDS: ASPIRIN 81 MG CHEWABLE TABLETS PO SCH (11:15)
[2020-09-04] MEDS: APIXABAN 5 MG TABLET PO SCH ×2 (11:44→21:07)
[2020-09-04] MEDS: LIDOCAINE 5% TOPICAL PATCH TP SCH (11:44)
[2020-09-04] MEDS: POLYETHYLENE GLYCOL (HEALTHYLAX) 3350 17 GM PACKET PO SCH ×2 (11:44→21:08)
[2020-09-04] MEDS: DOCUSATE SODIUM 100 MG CAPSULE (FP) PO SCH ×2 (11:44→21:08)
[2020-09-04] MEDS: PANTOPRAZOLE SODIUM 40 MG VIAL IVPUSH SCH ×2 (11:45→21:08)
[2020-09-04] MEDS: LIDOCAINE PATCH REMOVAL MC SCH (21:08)
[2020-09-04] MEDS: ATORVASTATIN CA 40 MG TABLET (FP) PO SCH (21:08)
[2020-09-04] MEDS: ZOLPIDEM TARTRATE 5 MG TABLET PO PRN (22:54)
[2020-09-05 06:51] VITALS: PULSE 81
[2020-09-05] MEDS ORDERED: VALSARTAN 160 MG TABLET PO SCH (10:00)
[2020-09-05] MEDS: APIXABAN 5 MG TABLET PO SCH (10:54)
[2020-09-05] MEDS: ASPIRIN 81 MG CHEWABLE TABLETS PO SCH (10:54)
[2020-09-05] MEDS: DOCUSATE SODIUM 100 MG CAPSULE (FP) PO SCH (10:54)
[2020-09-05] MEDS: METOPROLOL TARTRATE 25 MG TABLET (FP) PO SCH (10:54)
[2020-09-05] MEDS: POLYETHYLENE GLYCOL (HEALTHYLAX) 3350 17 GM PACKET PO SCH (10:55)
[2020-09-05] MEDS: LIDOCAINE 5% TOPICAL PATCH TP SCH ×2 (10:55→10:57)
[2020-09-05] MEDS: PANTOPRAZOLE SODIUM 40 MG VIAL IVPUSH SCH (10:55)
[2020-09-05 11:28] VITALS: BP 155/81; TEMP 98.2
== END 2020-09-05 14:02 | disposition home health service (06) | DRG 309 ==
LOC: JER 23:53 → JERBED 09-03 05:39 → J4W 09-03 13:25
PROVIDERS: ADMIT Internal Medicine; ATTEND Family Medicine
DX: I48.91 Unspecified atrial fibrillation (principal); Z68.41 Body mass index [BMI] 40.0-44.9, adult; I10 Essential (primary) hypertension; E78.5 Hyperlipidemia, unspecified; Z96.653 Presence of artificial knee joint, bilateral; R73.03 Prediabetes; E66.01 Morbid (severe) obesity due to excess calories; K21.9 Gastro-esophageal reflux disease without esophagitis; R60.9 Edema, unspecified; R07.89 Other chest pain; M51.24 Other intervertebral disc displacement, thoracic region; G47.33 Obstructive sleep apnea (adult) (pediatric); R11.2 Nausea with vomiting, unspecified; K59.09 Other constipation; Z90.49 Acquired absence of other specified parts of digestive tract
CPT/HCPCS: 36415; 71045-TC-FY; 78452-TC; 80053; 80061; 82550; 82962; 83690; 83721; 83735; 84100; 84439; 84443; 84484; 85025; 85379; 85610; 85730; 93005; 93010; 93017; 93306-TC; 93970-TC; 99285-25; A9502; C9803; J0131; J2785; U0003; U0005

== ENCOUNTER 2020-10-18 16:38 | Inpatient (IN) | payer OTHER ==
[2020-10-18] MEDS ORDERED: KETOROLAC TROMETHAMINE 15 MG/ML VIAL IVPUSH ONE (18:46)
[2020-10-18] MEDS ORDERED: KETOROLAC TROMETHAMINE 15 MG/ML VIAL ONE (18:48)
[2020-10-18] MEDS ORDERED: LIDOCAINE 5% TOPICAL PATCH TP ONE (18:49)
[2020-10-18 19:11] LABS: BASO % 2.1 % (0-2.0); HEMATOCRIT 36.9 % (32.4-45.2); HEMOGLOBIN 12.5 GM/dL (10.7-15.3); MCHC 33.8 g/dl (32.0-36.0); MEAN CELL VOLUME 88.7 fl (80-96); MEAN PLT VOLUME 8.3 fl (7.5-11.1); MONO % 4.4 % (3.8-10.2); NEUT % 82.5 % (42.8-82.8); PLATELET COUNT 301 10^3/uL (134-434); RBC 4.16 M/mm3 (3.60-5.2); RDW 15.6 % (11.6-15.6); WHITE BLOOD COUNT 9.5 K/mm3 (4.0-10.0)
[2020-10-18] MEDS ORDERED: CYCLOBENZAPRINE HCL 10 MG TABLET (FP) PO ONE (19:24)
[2020-10-18 19:28] LABS: INR 1.05 (0.83-1.09); PROTHROMBIN TIME (PATIENT) 12.7 SEC (9.7-13.0)
[2020-10-18 19:30] LABS: CHLORIDE 108 mmol/L (98-107); SODIUM 142 mmol/L (136-145)
[2020-10-18 19:31] LABS: ACTIVATED PTT 27.5 SECONDS (25.2-36.5)
[2020-10-18 19:32] LABS: ANION GAP 7 MMOL/L (8-16); CALCIUM 8.7 mg/dL (8.5-10.1); CO2 27 mmol/L (21-32); GLUCOSE,RANDOM 99 mg/dL (74-106)
[2020-10-18 19:33] LABS: ALBUMIN 3.3 g/dl (3.4-5.0); BLOOD UREA NITROGEN 26.3 mg/dL (7-18)
[2020-10-18 19:35] LABS: CREATININE 0.8 mg/dL (0.55-1.3); SGPT/ALT 46 U/L (13-61)
[2020-10-18 19:36] LABS: SGOT/AST 22 U/L (15-37)
[2020-10-18 19:37] LABS: BILIRUBIN,TOTAL 0.4 mg/dL (0.2-1); TOT PROT 7.2 g/dl (6.4-8.2)
[2020-10-18 19:38] LABS: ALK PHOS 68 U/L (45-117)
[2020-10-18] MEDS ORDERED: LIDOCAINE 5% TOPICAL PATCH ONE (20:24)
[2020-10-18] MEDS ORDERED: CYCLOBENZAPRINE HCL 10 MG TABLET (FP) ONE (20:24)
[2020-10-18] MEDS ORDERED: HYDROmorphone HCL CARPU-JECT 2 MG/1 ML DISP.SYRIN IVPUSH ONE (21:07)
[2020-10-18 21:14] LABS: EPI CELLS >36 /uL (0-25.1); HYALINE CASTS 1 /uL (0-3.1); PH,URINE 5.5 (5.0-8.0); URINE APPEARANCE CLEAR; URINE BACTERIA 42 /uL (0-1359); URINE BILIRUBIN NEGATIVE (NEGATIVE); URINE COLOR YELLOW; URINE GLUCOSE (UA) NEGATIVE (NEGATIVE); URINE KETONE NEGATIVE (NEGATIVE); URINE LEUK ESTERASE NEGATIVE (NEGATIVE); URINE NITRITE NEGATIVE (NEGATIVE); URINE PROTEIN 1+ (NEGATIVE); URINE RBC 10 /uL (0-23.9); URINE WBC 5 /uL (0-25.8)
[2020-10-18] MEDS ORDERED: HYDROmorphone HCl 2 MG/ML VIAL ONE (21:24)
[2020-10-18 21:41] LABS: LIPASE 40 U/L (73-393)
[2020-10-19] MEDS ORDERED: POLYETHYLENE GLYCOL (HEALTHYLAX) 3350 17 GM PACKET PO PRN (00:31)
[2020-10-19] MEDS ORDERED: HYDROmorphone HCL CARPU-JECT 2 MG/1 ML DISP.SYRIN IVPUSH ONE (01:30)
[2020-10-19] MEDS ORDERED: ONDANSETRON 4 MG/2 ML VIAL IVPUSH PRN (02:00)
[2020-10-19] MEDS ORDERED: HYDROmorphone HCl 2 MG/ML VIAL ONE (02:04)
[2020-10-19 02:48] VITALS: BMI 43.7
[2020-10-19] MEDS: KETOROLAC TROMETHAMINE 30 MG/1 ML VIAL IVPUSH PRN ×3 (06:23→21:25)
[2020-10-19] MEDS ORDERED: LIDOCAINE PATCH REMOVAL MC SCH (07:00)
[2020-10-19 08:22] LABS: BASO % 0.1 % (0-2.0); EOS % 0.1 % (0-4.5); HEMOGLOBIN 12.4 GM/dL (10.7-15.3); LYMPH % 10.7 % (8-40); MCH 29.7 pg (25.7-33.7); MCHC 33.4 g/dl (32.0-36.0); MEAN CELL VOLUME 88.9 fl (80-96); MEAN PLT VOLUME 8.5 fl (7.5-11.1); MONO % 2.8 % (3.8-10.2); NEUT % 86.3 % (42.8-82.8); PLATELET COUNT 310 10^3/uL (134-434); RBC 4.16 M/mm3 (3.60-5.2); RDW 16.2 % (11.6-15.6); WHITE BLOOD COUNT 8.5 K/mm3 (4.0-10.0)
[2020-10-19] MEDS ORDERED: HYDROmorphone HCl 2 MG/ML VIAL IVPUSH PRN (08:22)
[2020-10-19 08:42] LABS: CALCIUM 8.3 mg/dL (8.5-10.1)
[2020-10-19 08:43] LABS: BLOOD UREA NITROGEN 28.9 mg/dL (7-18)
[2020-10-19] MEDS: PANTOPRAZOLE 40 MG TABLET PO SCH (09:15)
[2020-10-19] MEDS: VALSARTAN 160 MG TABLET PO SCH (09:16)
[2020-10-19] MEDS: DOCUSATE SODIUM 100 MG CAPSULE (FP) PO SCH ×2 (09:16→21:29)
[2020-10-19] MEDS: METOPROLOL TARTRATE 25 MG TABLET (FP) PO SCH ×2 (09:16→21:28)
[2020-10-19] MEDS: LIDOCAINE 5% TOPICAL PATCH TP SCH (09:16)
[2020-10-19] MEDS: amLODIPine BESYLATE 5 MG TABLET (FP) PO SCH (16:19)
[2020-10-19] MEDS: HYDROmorphone HCl 2 MG/ML VIAL IVPB PRN (20:11)
[2020-10-19] MEDS: ALPRAZolam 1 MG TABLET PO PRN (21:26)
[2020-10-19] MEDS: LIDOCAINE PATCH REMOVAL MC SCH (21:29)
[2020-10-19] MEDS: ATORVASTATIN CA 40 MG TABLET (FP) PO SCH (22:00)
[2020-10-20] MEDS: HYDROmorphone HCl 2 MG/ML VIAL IVPB PRN ×4 (06:16→21:41)
[2020-10-20] MEDS: LIDOCAINE 5% TOPICAL PATCH TP SCH (09:44)
[2020-10-20] MEDS: ALPRAZolam 1 MG TABLET PO PRN (09:45)
[2020-10-20] MEDS: amLODIPine BESYLATE 5 MG TABLET (FP) PO SCH (09:45)
[2020-10-20] MEDS: PANTOPRAZOLE 40 MG TABLET PO SCH (09:45)
[2020-10-20] MEDS: DOCUSATE SODIUM 100 MG CAPSULE (FP) PO SCH ×2 (09:45→21:35)
[2020-10-20] MEDS: METOPROLOL TARTRATE 25 MG TABLET (FP) PO SCH ×2 (09:45→21:36)
[2020-10-20] MEDS: VALSARTAN 160 MG TABLET PO SCH (09:45)
[2020-10-20] MEDS: KETOROLAC TROMETHAMINE 30 MG/1 ML VIAL IVPUSH PRN (09:47)
[2020-10-20] MEDS: POLYETHYLENE GLYCOL (HEALTHYLAX) 3350 17 GM PACKET PO SCH ×2 (14:37→21:36)
[2020-10-20] MEDS: ATORVASTATIN CA 40 MG TABLET (FP) PO SCH (21:36)
[2020-10-20] MEDS: LIDOCAINE PATCH REMOVAL MC SCH (21:46)
[2020-10-21] MEDS: KETOROLAC TROMETHAMINE 30 MG/1 ML VIAL IVPUSH PRN (00:44)
[2020-10-21] MEDS: ALPRAZolam 1 MG TABLET PO PRN ×2 (01:00→21:34)
[2020-10-21] MEDS: HYDROmorphone HCl 2 MG/ML VIAL IVPB PRN ×6 (01:46→21:35)
[2020-10-21] MEDS ORDERED: MINERAL OIL ENEMA 133 ML ENEMA PR ONE (03:44)
[2020-10-21 08:42] LABS: HEMATOCRIT 36.2 % (32.4-45.2); MCH 29.4 pg (25.7-33.7); MEAN PLT VOLUME 8.5 fl (7.5-11.1); PLATELET COUNT 282 10^3/uL (134-434); RBC 4.07 M/mm3 (3.60-5.2); RDW 15.8 % (11.6-15.6); WHITE BLOOD COUNT 7.2 K/mm3 (4.0-10.0)
[2020-10-21 09:16] LABS: BLOOD UREA NITROGEN 32.4 mg/dL (7-18); CALCIUM 7.8 mg/dL (8.5-10.1)
[2020-10-21 09:17] LABS: ALBUMIN 2.9 g/dl (3.4-5.0)
[2020-10-21 09:21] LABS: BILIRUBIN,TOTAL 0.3 mg/dL (0.2-1); TOT PROT 6.3 g/dl (6.4-8.2)
[2020-10-21] MEDS: VALSARTAN 160 MG TABLET PO SCH (09:26)
[2020-10-21] MEDS: POLYETHYLENE GLYCOL (HEALTHYLAX) 3350 17 GM PACKET PO SCH ×3 (09:26→22:04)
[2020-10-21] MEDS: PANTOPRAZOLE 40 MG TABLET PO SCH (09:26)
[2020-10-21] MEDS: amLODIPine BESYLATE 5 MG TABLET (FP) PO SCH (09:26)
[2020-10-21] MEDS: DOCUSATE SODIUM 100 MG CAPSULE (FP) PO SCH ×2 (09:27→21:34)
[2020-10-21] MEDS: METOPROLOL TARTRATE 25 MG TABLET (FP) PO SCH ×2 (09:27→21:34)
[2020-10-21] MEDS: LIDOCAINE 5% TOPICAL PATCH TP SCH (09:28)
[2020-10-21] MEDS: ENOXAPARIN NA (PORCINE) 120 MG/0.8 ML DISP.SYRIN SQ SCH ×2 (09:29→21:34)
[2020-10-21] MEDS ORDERED: HYDROCORTISONE SOD SUCCINATE 100 MG/2 ML VIAL IVPB ONE (10:01)
[2020-10-21 13:00] LABS: ANISOCYTOSIS 1+; MACROCYTOSIS 0; PLATELET ESTIMATE NORMAL
[2020-10-21] MEDS ORDERED: PT OWN MED DRAWER 7, Y5N ONE ×2 (16:17→20:06)
[2020-10-21] MEDS: ATORVASTATIN CA 40 MG TABLET (FP) PO SCH (21:34)
[2020-10-21] MEDS: LIDOCAINE PATCH REMOVAL MC SCH (22:04)
[2020-10-22] MEDS: HYDROmorphone HCl 2 MG/ML VIAL IVPB PRN ×3 (01:58→10:26)
[2020-10-22 09:12] LABS: HEMATOCRIT 36.6 % (32.4-45.2); HEMOGLOBIN 12.4 GM/dL (10.7-15.3); MCH 30.1 pg (25.7-33.7); MCHC 33.8 g/dl (32.0-36.0); MEAN PLT VOLUME 8.5 fl (7.5-11.1); PLATELET COUNT 282 10^3/uL (134-434); RBC 4.12 M/mm3 (3.60-5.2); RDW 16.2 % (11.6-15.6)
[2020-10-22 09:27] LABS: BLOOD UREA NITROGEN 31.2 mg/dL (7-18)
[2020-10-22 09:30] LABS: CREATININE 0.8 mg/dL (0.55-1.3)
[2020-10-22] MEDS: LIDOCAINE 5% TOPICAL PATCH TP SCH ×2 (10:00→10:25)
[2020-10-22] MEDS ORDERED: VALSARTAN 160 MG TABLET PO SCH (10:00)
[2020-10-22] MEDS: DOCUSATE SODIUM 100 MG CAPSULE (FP) PO SCH ×2 (10:16→21:07)
[2020-10-22] MEDS: POLYETHYLENE GLYCOL (HEALTHYLAX) 3350 17 GM PACKET PO SCH ×2 (10:17→21:10)
[2020-10-22] MEDS: VALSARTAN 160 MG TABLET PO SCH ×2 (10:23→21:07)
[2020-10-22] MEDS: PANTOPRAZOLE 40 MG TABLET PO SCH (10:23)
[2020-10-22] MEDS: amLODIPine BESYLATE 5 MG TABLET (FP) PO SCH (10:24)
[2020-10-22] MEDS: METOPROLOL TARTRATE 25 MG TABLET (FP) PO SCH ×2 (10:24→21:07)
[2020-10-22 10:30] LABS: ANISOCYTOSIS 1+; PLATELET ESTIMATE NORMAL
[2020-10-22] MEDS ORDERED: PT OWN MED DRAWER 7, Y5N ONE ×2 (10:33→20:31)
[2020-10-22] MEDS: ENOXAPARIN NA (PORCINE) 120 MG/0.8 ML DISP.SYRIN SQ SCH ×2 (10:35→21:08)
[2020-10-22] MEDS: oxyCODONE HCL 5 MG TABLET PO PRN (16:04)
[2020-10-22] MEDS: ATORVASTATIN CA 40 MG TABLET (FP) PO SCH (21:07)
[2020-10-22] MEDS ORDERED: LIDOCAINE PATCH REMOVAL MC SCH (22:00)
[2020-10-23] MEDS: oxyCODONE HCL 5 MG TABLET PO PRN ×2 (00:02→06:11)
[2020-10-23] MEDS ORDERED: INSULIN (LEVEMIR) 100 UNITS/ML UNITS SQ ONE (06:58)
[2020-10-23] MEDS ORDERED: INSULIN (NOVOLOG MIX 70/30) 100 UNITS/ML MDV SQ ONE (06:58)
[2020-10-23] MEDS ORDERED: INSULIN (NOVOLOG) ASPART 100 UNITS/ML 10ML VIAL ONE (06:58)
[2020-10-23] MEDS: LIDOCAINE 5% TOPICAL PATCH TP SCH (10:34)
[2020-10-23] MEDS: METOPROLOL TARTRATE 25 MG TABLET (FP) PO SCH (10:35)
[2020-10-23] MEDS: amLODIPine BESYLATE 5 MG TABLET (FP) PO SCH (10:35)
[2020-10-23] MEDS: PANTOPRAZOLE 40 MG TABLET PO SCH (10:35)
[2020-10-23] MEDS: VALSARTAN 160 MG TABLET PO SCH (10:35)
[2020-10-23] MEDS: ENOXAPARIN NA (PORCINE) 120 MG/0.8 ML DISP.SYRIN SQ SCH (10:35)
[2020-10-23] MEDS: POLYETHYLENE GLYCOL (HEALTHYLAX) 3350 17 GM PACKET PO SCH (10:35)
[2020-10-23] MEDS: DOCUSATE SODIUM 100 MG CAPSULE (FP) PO SCH (10:35)
[2020-10-23 11:25] VITALS: BP 146/85; PULSE 80; TEMP 98.8
== END 2020-10-23 11:33 | disposition home health service (06) | DRG 552 ==
LOC: JERFT 16:38 → JER 16:38 → JERBED 18:50 → J4W 10-19 02:29
PROVIDERS: ADMIT Internal Medicine; ATTEND Family Medicine
DX: M54.16 Radiculopathy, lumbar region (principal); I48.92 Unspecified atrial flutter; Z68.41 Body mass index [BMI] 40.0-44.9, adult; M54.5 Low back pain; I10 Essential (primary) hypertension; E66.9 Obesity, unspecified; I48.91 Unspecified atrial fibrillation; E78.5 Hyperlipidemia, unspecified; E78.00 Pure hypercholesterolemia, unspecified; M54.9 Dorsalgia, unspecified; G89.29 Other chronic pain; R51.9 Headache, unspecified; R07.9 Chest pain, unspecified; M25.512 Pain in left shoulder; R63.0 Anorexia; R30.0 Dysuria; R11.2 Nausea with vomiting, unspecified; M48.061 Spinal stenosis, lumbar region without neurogenic claudication; I25.10 Atherosclerotic heart disease of native coronary artery without angina pectoris; E88.09 Other disorders of plasma-protein metabolism, not elsewhere classified; K59.00 Constipation, unspecified
CPT/HCPCS: 36415; 70450-TC; 71045-TC-FY; 71275-TC; 72128-TC; 74177-TC; 80048; 80053; 80061; 81003; 82550; 83690; 83735; 83880; 84443; 84484; 85025; 85610; 85730; 87086; 87186; 93005; 93010; 93971-TC; 96365; 96375; 99285-25; C9803; G0378; Q9967; U0003; U0005

== ENCOUNTER 2020-11-03 21:18 | Inpatient (IN) | payer OTHER ==
[2020-11-03] MEDS ORDERED: KETOROLAC TROMETHAMINE 30 MG/1 ML VIAL IVPUSH ONE ×2 (22:02→22:37)
[2020-11-03] MEDS ORDERED: KETOROLAC TROMETHAMINE 30 MG/1 ML VIAL ONE (22:17)
[2020-11-03 22:22] LABS: BASO % 0.6 % (0-2.0); EOS % 1.4 % (0-4.5); HEMATOCRIT 40.1 % (32.4-45.2); HEMOGLOBIN 13.5 GM/dL (10.7-15.3); LYMPH % 18.6 % (8-40); MCH 29.8 pg (25.7-33.7); MCHC 33.7 g/dl (32.0-36.0); MEAN CELL VOLUME 88.4 fl (80-96); MEAN PLT VOLUME 7.5 fl (7.5-11.1); MONO % 7.5 % (3.8-10.2); NEUT % 71.9 % (42.8-82.8); PLATELET COUNT 285 10^3/uL (134-434); RBC 4.53 M/mm3 (3.60-5.2); RDW 15.4 % (11.6-15.6); WHITE BLOOD COUNT 9.4 K/mm3 (4.0-10.0)
[2020-11-03] MEDS ORDERED: morphine CARPU-JECT 10 MG/1 ML DISP.SYRIN IVPUSH ONE (22:40)
[2020-11-03 22:48] LABS: CALCIUM 8.7 mg/dL (8.5-10.1)
[2020-11-03 22:49] LABS: ALBUMIN 3.2 g/dl (3.4-5.0); BLOOD UREA NITROGEN 42.2 mg/dL (7-18)
[2020-11-03 22:53] LABS: BILIRUBIN,TOTAL 0.4 mg/dL (0.2-1)
[2020-11-03 22:54] LABS: TOT PROT 6.7 g/dl (6.4-8.2)
[2020-11-03] MEDS ORDERED: morphine SULFATE 4 MG/ML VIAL ONE (22:57)
[2020-11-03] MEDS ORDERED: HYDROmorphone HCL CARPU-JECT 2 MG/1 ML DISP.SYRIN IVPUSH ONE (23:59)
[2020-11-04] MEDS ORDERED: HYDROmorphone HCl 2 MG/ML VIAL ONE (00:19)
[2020-11-04] MEDS ORDERED: KETOROLAC TROMETHAMINE 15 MG/ML VIAL IVPUSH ONE (03:52)
[2020-11-04] MEDS ORDERED: HYDROmorphone HCl 2 MG/ML VIAL IVPUSH ONE (04:00)
[2020-11-04 04:01] LABS: EPI CELLS 19 /uL (0-25.1); HYALINE CASTS 6 /uL (0-3.1); URINE APPEARANCE CLEAR; URINE BACTERIA 40 /uL (0-1359); URINE BILIRUBIN NEGATIVE (NEGATIVE); URINE COLOR YELLOW; URINE GLUCOSE (UA) NEGATIVE (NEGATIVE); URINE KETONE NEGATIVE (NEGATIVE); URINE LEUK ESTERASE NEGATIVE (NEGATIVE); URINE NITRITE NEGATIVE (NEGATIVE); URINE PROTEIN 1+ (NEGATIVE); URINE UROBILINOGEN 0.2 mg/dL (0.2-1.0); URINE WBC 6 /uL (0-25.8)
[2020-11-04] MEDS ORDERED: oxyCODONE HCL 5 MG TABLET PO PRN (06:59)
[2020-11-04] MEDS ORDERED: HYDROmorphone HCl 2 MG/ML VIAL IVPUSH PRN (07:01)
[2020-11-04] MEDS: LIDOCAINE 5% TOPICAL PATCH TP SCH (09:21)
[2020-11-04 09:25] LABS: BASO % 0.4 % (0-2.0); HEMATOCRIT 39.4 % (32.4-45.2); HEMOGLOBIN 13.2 GM/dL (10.7-15.3); LYMPH % 14.8 % (8-40); MCHC 33.6 g/dl (32.0-36.0); MEAN CELL VOLUME 89.4 fl (80-96); MEAN PLT VOLUME 8.4 fl (7.5-11.1); MONO % 8.1 % (3.8-10.2); NEUT % 75.7 % (42.8-82.8); PLATELET COUNT 315 10^3/uL (134-434); RBC 4.41 M/mm3 (3.60-5.2); RDW 15.8 % (11.6-15.6); WHITE BLOOD COUNT 10.8 K/mm3 (4.0-10.0)
[2020-11-04] MEDS: GABAPENTIN 100 MG CAPSULE PO SCH ×3 (09:34→21:15)
[2020-11-04] MEDS: METOPROLOL TARTRATE 25 MG TABLET (FP) PO SCH ×2 (09:34→21:15)
[2020-11-04] MEDS: ENOXAPARIN NA (PORCINE) 120 MG/0.8 ML DISP.SYRIN SQ SCH ×2 (09:34→21:16)
[2020-11-04] MEDS: POLYETHYLENE GLYCOL (HEALTHYLAX) 3350 17 GM PACKET PO SCH ×2 (09:35→21:16)
[2020-11-04] MEDS: VALSARTAN 160 MG TABLET PO SCH ×2 (09:35→21:15)
[2020-11-04] MEDS: amLODIPine BESYLATE 5 MG TABLET (FP) PO SCH (09:35)
[2020-11-04] MEDS: PANTOPRAZOLE 40 MG TABLET PO SCH (09:35)
[2020-11-04] MEDS: DOCUSATE SODIUM 100 MG CAPSULE (FP) PO SCH ×2 (09:35→21:15)
[2020-11-04 10:10] LABS: ALBUMIN 3.2 g/dl (3.4-5.0); BLOOD UREA NITROGEN 51.1 mg/dL (7-18); CALCIUM 8.7 mg/dL (8.5-10.1)
[2020-11-04 10:13] LABS: CREATININE 1.1 mg/dL (0.55-1.3)
[2020-11-04 10:15] LABS: BILIRUBIN,TOTAL 0.8 mg/dL (0.2-1); TOT PROT 6.7 g/dl (6.4-8.2)
[2020-11-04] MEDS: HYDROmorphone HCl 2 MG/ML VIAL IVPB PRN ×2 (13:10→23:12)
[2020-11-04] MEDS: ATORVASTATIN CA 40 MG TABLET (FP) PO SCH (21:15)
[2020-11-04] MEDS: LIDOCAINE PATCH REMOVAL MC SCH (21:17)
[2020-11-04] MEDS ORDERED: ZOLPIDEM TARTRATE 5 MG TABLET PO PRN (22:00)
[2020-11-05] MEDS ORDERED: ACETAMINOPHEN 325 MG TABLET (FP) PO ONE (02:38)
[2020-11-05] MEDS: HYDROmorphone HCl 2 MG/ML VIAL IVPB PRN (04:11)
[2020-11-05] MEDS: GABAPENTIN 100 MG CAPSULE PO SCH ×3 (05:53→21:04)
[2020-11-05] MEDS: PANTOPRAZOLE 40 MG TABLET PO SCH (10:58)
[2020-11-05] MEDS: ENOXAPARIN NA (PORCINE) 120 MG/0.8 ML DISP.SYRIN SQ SCH ×2 (10:58→22:53)
[2020-11-05] MEDS: amLODIPine BESYLATE 5 MG TABLET (FP) PO SCH (10:58)
[2020-11-05] MEDS: LIDOCAINE 5% TOPICAL PATCH TP SCH ×2 (10:59→11:05)
[2020-11-05] MEDS: METOPROLOL TARTRATE 25 MG TABLET (FP) PO SCH ×2 (10:59→21:04)
[2020-11-05] MEDS: DOCUSATE SODIUM 100 MG CAPSULE (FP) PO SCH ×2 (10:59→21:04)
[2020-11-05] MEDS: POLYETHYLENE GLYCOL (HEALTHYLAX) 3350 17 GM PACKET PO SCH ×2 (10:59→21:04)
[2020-11-05] MEDS: VALSARTAN 160 MG TABLET PO SCH ×2 (10:59→21:04)
[2020-11-05] MEDS: ATORVASTATIN CA 40 MG TABLET (FP) PO SCH (21:04)
[2020-11-05] MEDS: LIDOCAINE PATCH REMOVAL MC SCH (21:05)
[2020-11-05 23:43] VITALS: TEMP 98.1
[2020-11-06] MEDS: HYDROmorphone HCl 2 MG/ML VIAL IVPB PRN ×2 (00:23→13:16)
[2020-11-06] MEDS ORDERED: ACETAMINOPHEN 325 MG TABLET (FP) PO PRN (03:17)
[2020-11-06] MEDS: GABAPENTIN 100 MG CAPSULE PO SCH ×2 (05:39→13:16)
[2020-11-06] MEDS ORDERED: PT OWN MED DRAWER 7, Y5N ONE (11:56)
[2020-11-06] MEDS: LIDOCAINE 5% TOPICAL PATCH TP SCH (12:00)
[2020-11-06] MEDS: DOCUSATE SODIUM 100 MG CAPSULE (FP) PO SCH (12:00)
[2020-11-06] MEDS: VALSARTAN 160 MG TABLET PO SCH (12:00)
[2020-11-06] MEDS: METOPROLOL TARTRATE 25 MG TABLET (FP) PO SCH (12:00)
[2020-11-06] MEDS: PANTOPRAZOLE 40 MG TABLET PO SCH (12:00)
[2020-11-06] MEDS: POLYETHYLENE GLYCOL (HEALTHYLAX) 3350 17 GM PACKET PO SCH (12:00)
[2020-11-06] MEDS: amLODIPine BESYLATE 5 MG TABLET (FP) PO SCH (12:00)
[2020-11-06] MEDS: ENOXAPARIN NA (PORCINE) 120 MG/0.8 ML DISP.SYRIN SQ SCH (12:01)
[2020-11-06 12:50] VITALS: BMI 41.8
[2020-11-06 15:50] VITALS: BP 134/56; PULSE 70
== END 2020-11-06 17:14 | disposition home or self-care (01) | DRG 552 ==
LOC: JER 21:18 → JERBED 22:08 → J8W 11-04 00:42
PROVIDERS: ADMIT Family Medicine; ATTEND Family Medicine
DX: M54.14 Radiculopathy, thoracic region (principal); Z68.41 Body mass index [BMI] 40.0-44.9, adult; E78.00 Pure hypercholesterolemia, unspecified; Z96.653 Presence of artificial knee joint, bilateral; M54.9 Dorsalgia, unspecified; I10 Essential (primary) hypertension; K21.9 Gastro-esophageal reflux disease without esophagitis; K59.09 Other constipation; E11.9 Type 2 diabetes mellitus without complications; M54.5 Low back pain; I48.91 Unspecified atrial fibrillation; M48.07 Spinal stenosis, lumbosacral region; E66.01 Morbid (severe) obesity due to excess calories
CPT/HCPCS: 36415; 78306-TC; 80053; 81003; 82962; 85025; 87086; 93005; 93010; 99285-25; A9503; C9803; U0003; U0005

== ENCOUNTER 2020-12-31 11:20 | Inpatient (IN) | payer OTHER ==
[2020-12-31] MEDS ORDERED: NALOXONE HCL 0.4 MG/ML VIAL ONE ×2 (11:42→13:25)
[2020-12-31] MEDS ORDERED: SODIUM CHLORIDE 0.9% 500 ML INFUS.BAG IV ONE ×2 (11:57→13:05)
[2020-12-31 12:34] LABS: BASO % 0.3 % (0-2.0); EOS % 0.2 % (0-4.5); HEMATOCRIT 36.8 % (32.4-45.2); HEMOGLOBIN 12.1 GM/dL (10.7-15.3); LYMPH % 13.9 % (8-40); MCH 29.9 pg (25.7-33.7); MCHC 32.9 g/dl (32.0-36.0); MEAN CELL VOLUME 90.9 fl (80-96); MEAN PLT VOLUME 8.4 fl (7.5-11.1); MONO % 7.3 % (3.8-10.2); NEUT % 78.3 % (42.8-82.8); PLATELET COUNT 359 10^3/uL (134-434); RBC 4.04 M/mm3 (3.60-5.2); RDW 15.8 % (11.6-15.6); WHITE BLOOD COUNT 12.3 K/mm3 (4.0-10.0)
[2020-12-31 12:41] LABS: INR 1.81 (0.83-1.09); PROTHROMBIN TIME (PATIENT) 21.3 SEC (9.7-13.0)
[2020-12-31 12:42] LABS: VENOUS BASE EXCESS -7.9 mmol/L (-2-2); VENOUS O2 SATURATION 70.2 % (70-80); VENOUS PCO2 52.3 mmHg (38-52); VENOUS PH 7.204 (7.310-7.410)
[2020-12-31 12:43] LABS: ACTIVATED PTT 33.7 SECONDS (25.2-36.5)
[2020-12-31] MEDS ORDERED: NALOXONE HCL 0.4 MG/ML VIAL IVPUSH ONE ×2 (12:51→13:23)
[2020-12-31 12:58] LABS: CALCIUM 7.8 mg/dL (8.5-10.1)
[2020-12-31 12:59] LABS: ALBUMIN 3.4 g/dl (3.4-5.0); BLOOD UREA NITROGEN 83.8 mg/dL (7-18)
[2020-12-31 13:01] LABS: CHOLESTEROL 160 mg/dL (50-200); TRIGLYCERIDES 181 mg/dL (0-150)
[2020-12-31 13:02] LABS: CREATININE 3.7 mg/dL (0.55-1.3)
[2020-12-31 13:02] LABS: LDL CHOLESTEROL (ONLY SJRH) 85 mg/dL (5-100)
[2020-12-31 13:04] LABS: HDL CHOLESTEROL 48 mg/dL (40-60)
[2020-12-31 13:04] LABS: BILIRUBIN,TOTAL 0.6 mg/dL (0.2-1); TOT PROT 7.3 g/dl (6.4-8.2)
[2020-12-31 13:13] LABS: LACTIC ACID 3.8 mmol/L (0.4-2.0)
[2020-12-31] MEDS ORDERED: NALOXONE HCL 0.4 MG/ML VIAL IVPUSH PRN (15:53)
[2020-12-31] MEDS ORDERED: ALPRAZolam 0.25 MG TABLET PO PRN (16:51)
[2020-12-31] MEDS ORDERED: ZOLPIDEM TARTRATE 5 MG TABLET PO PRN (17:14)
[2020-12-31 20:04] LABS: EPI CELLS >36 /uL (0-25.1); HYALINE CASTS 7 /uL (0-3.1); URINE APPEARANCE CLEAR; URINE BACTERIA 59 /uL (0-1359); URINE BILIRUBIN NEGATIVE (NEGATIVE); URINE COLOR YELLOW; URINE GLUCOSE (UA) NEGATIVE (NEGATIVE); URINE KETONE NEGATIVE (NEGATIVE); URINE LEUK ESTERASE NEGATIVE (NEGATIVE); URINE NITRITE NEGATIVE (NEGATIVE); URINE PROTEIN 1+ (NEGATIVE); URINE RBC 48 /uL (0-23.9); URINE UROBILINOGEN 0.2 mg/dL (0.2-1.0); URINE WBC 12 /uL (0-25.8)
[2020-12-31] MEDS: morphine SULFATE 4 MG/ML VIAL IVPUSH PRN (21:06)
[2020-12-31] MEDS: GABAPENTIN 300 MG CAPSULE PO SCH (21:11)
[2020-12-31] MEDS: ATORVASTATIN CA 40 MG TABLET (FP) PO SCH (21:11)
[2020-12-31] MEDS: ENOXAPARIN NA (PORCINE) 120 MG/0.8 ML DISP.SYRIN SQ SCH (21:11)
[2020-12-31] MEDS: ALPRAZolam 0.25 MG TABLET PO SCH (21:12)
[2020-12-31] MEDS: MUPIROCIN 2% TOPICAL OINTMENT FOR DECOLONIZATION NS SCH (21:12)
[2020-12-31] MEDS: SODIUM CHLORIDE 1,000 ML IV SCH (21:12)
[2020-12-31] MEDS: DOCUSATE SODIUM 100 MG CAPSULE (FP) PO SCH (21:12)
[2020-12-31] MEDS: CHLORHEXIDINE GLUCONATE 4% CLEANSER FOR DECOLONIZATION TP SCH (21:12)
[2020-12-31] MEDS ORDERED: ENOXAPARIN NA (PORCINE) 120 MG/0.8 ML DISP.SYRIN SQ SCH (22:00)
[2020-12-31] MEDS ORDERED: APIXABAN 5 MG TABLET PO SCH (22:00)
[2021-01-01] MEDS: GABAPENTIN 300 MG CAPSULE PO SCH ×3 (05:39→21:38)
[2021-01-01 07:08] LABS: BASO % 0.5 % (0-2.0); EOS % 1.5 % (0-4.5); HEMATOCRIT 31.6 % (32.4-45.2); HEMOGLOBIN 10.5 GM/dL (10.7-15.3); LYMPH % 18.5 % (8-40); MCHC 33.3 g/dl (32.0-36.0); MEAN CELL VOLUME 90.1 fl (80-96); MEAN PLT VOLUME 8.2 fl (7.5-11.1); MONO % 9.4 % (3.8-10.2); NEUT % 70.1 % (42.8-82.8); PLATELET COUNT 216 10^3/uL (134-434); RBC 3.51 M/mm3 (3.60-5.2); WHITE BLOOD COUNT 7.9 K/mm3 (4.0-10.0)
[2021-01-01] MEDS: morphine SULFATE 4 MG/ML VIAL IVPUSH PRN (07:52)
[2021-01-01 08:03] LABS: ALBUMIN 2.7 g/dl (3.4-5.0); BLOOD UREA NITROGEN 81.6 mg/dL (7-18); CALCIUM 7.4 mg/dL (8.5-10.1); MAGNESIUM 2.2 mg/dL (1.8-2.4)
[2021-01-01 08:06] LABS: CREATININE 2.1 mg/dL (0.55-1.3)
[2021-01-01 08:07] LABS: PHOSPHOROUS 5.1 mg/dL (2.5-4.9)
[2021-01-01 08:08] LABS: BILIRUBIN,TOTAL 0.4 mg/dL (0.2-1); TOT PROT 6.2 g/dl (6.4-8.2)
[2021-01-01] MEDS: ASPIRIN 81 MG CHEWABLE TABLETS PO SCH (10:45)
[2021-01-01] MEDS: MUPIROCIN 2% TOPICAL OINTMENT FOR DECOLONIZATION NS SCH ×2 (10:45→21:38)
[2021-01-01] MEDS: DOCUSATE SODIUM 100 MG CAPSULE (FP) PO SCH ×2 (10:45→21:38)
[2021-01-01] MEDS ORDERED: POLYETHYLENE GLYCOL (HEALTHYLAX) 3350 17 GM PACKET PO ONE (11:58)
[2021-01-01] MEDS: SODIUM CHLORIDE 1,000 ML IV SCH ×2 (15:45→20:34)
[2021-01-01 21:06] LABS: COCAINE, UR NEGATIVE (NEGATIVE); METHADONE, UR NEGATIVE (NEGATIVE); PHENCYCLIDINE,URINE NEGATIVE (NEGATIVE); URINE BARBITURATES NEGATIVE (NEGATIVE); URINE BENZODIAZEPINES NEGATIVE (NEGATIVE)
[2021-01-01 21:07] LABS: OPIATES, URI POSITIVE (NEGATIVE); URINE AMPHETAMINES NEGATIVE (NEGATIVE)
[2021-01-01] MEDS: ATORVASTATIN CA 40 MG TABLET (FP) PO SCH (21:38)
[2021-01-01] MEDS: ACETAMINOPHEN 1000 MG/100 ML VIAL IVPB PRN (21:38)
[2021-01-01] MEDS: ALPRAZolam 0.25 MG TABLET PO SCH (21:38)
[2021-01-01] MEDS: ENOXAPARIN NA (PORCINE) 120 MG/0.8 ML DISP.SYRIN SQ SCH (21:39)
[2021-01-01] MEDS: CHLORHEXIDINE GLUCONATE 4% CLEANSER FOR DECOLONIZATION TP SCH (21:39)
[2021-01-02] MEDS: GABAPENTIN 300 MG CAPSULE PO SCH ×3 (05:28→21:20)
[2021-01-02 07:12] LABS: HEMATOCRIT 36.1 % (32.4-45.2); HEMOGLOBIN 11.9 GM/dL (10.7-15.3); MCH 29.9 pg (25.7-33.7); MCHC 33.1 g/dl (32.0-36.0); MEAN CELL VOLUME 90.5 fl (80-96); MEAN PLT VOLUME 8.2 fl (7.5-11.1); PLATELET COUNT 209 10^3/uL (134-434); RBC 3.99 M/mm3 (3.60-5.2); RDW 15.8 % (11.6-15.6); WHITE BLOOD COUNT 7.6 K/mm3 (4.0-10.0)
[2021-01-02 07:31] LABS: ALBUMIN 2.9 g/dl (3.4-5.0); MAGNESIUM 2.4 mg/dL (1.8-2.4)
[2021-01-02 07:34] LABS: CREATININE 0.9 mg/dL (0.55-1.3)
[2021-01-02 07:35] LABS: PHOSPHOROUS 2.7 mg/dL (2.5-4.9)
[2021-01-02 07:36] LABS: BILIRUBIN,TOTAL 0.7 mg/dL (0.2-1); TOT PROT 6.9 g/dl (6.4-8.2)
[2021-01-02 07:39] LABS: BLOOD UREA NITROGEN 49.4 mg/dL (7-18)
[2021-01-02] MEDS ORDERED: PT OWN MED DRAWER 7, Y5N ONE (08:56)
[2021-01-02] MEDS: DOCUSATE SODIUM 100 MG CAPSULE (FP) PO SCH ×2 (09:10→21:21)
[2021-01-02] MEDS: ASPIRIN 81 MG CHEWABLE TABLETS PO SCH (09:11)
[2021-01-02] MEDS: MUPIROCIN 2% TOPICAL OINTMENT FOR DECOLONIZATION NS SCH ×2 (09:11→21:19)
[2021-01-02] MEDS ORDERED: DEXTROSE 5%-WATER 100 ML IVPB ONE (10:12)
[2021-01-02] MEDS: CEFTRIAXONE 2 GM in DEXTROSE 5%-WATER 2 GM/100 ML BAG IVPB SCH (10:15)
[2021-01-02] MEDS: ACETAMINOPHEN 1000 MG/100 ML VIAL IVPB PRN (12:38)
[2021-01-02] MEDS: SODIUM CHLORIDE 1,000 ML IV SCH (12:45)
[2021-01-02 16:22] VITALS: BMI 43.9
[2021-01-02] MEDS: APIXABAN 5 MG TABLET PO SCH (21:20)
[2021-01-02] MEDS: ALPRAZolam 0.25 MG TABLET PO SCH (21:20)
[2021-01-02] MEDS: CHLORHEXIDINE GLUCONATE 4% CLEANSER FOR DECOLONIZATION TP SCH (21:20)
[2021-01-02] MEDS: ATORVASTATIN CA 40 MG TABLET (FP) PO SCH (21:20)
[2021-01-03] MEDS: GABAPENTIN 300 MG CAPSULE PO SCH ×2 (05:43→13:00)
[2021-01-03 07:19] LABS: HEMATOCRIT 31.1 % (32.4-45.2); HEMOGLOBIN 10.7 GM/dL (10.7-15.3); MCH 30.8 pg (25.7-33.7); MCHC 34.5 g/dl (32.0-36.0); MEAN CELL VOLUME 89.3 fl (80-96); MEAN PLT VOLUME 8.2 fl (7.5-11.1); PLATELET COUNT 228 10^3/uL (134-434); RBC 3.48 M/mm3 (3.60-5.2); RDW 15.3 % (11.6-15.6); WHITE BLOOD COUNT 6.1 K/mm3 (4.0-10.0)
[2021-01-03 07:32] LABS: ALBUMIN 2.6 g/dl (3.4-5.0); CALCIUM 8.2 mg/dL (8.5-10.1); MAGNESIUM 1.9 mg/dL (1.8-2.4)
[2021-01-03 07:35] LABS: CREATININE 0.6 mg/dL (0.55-1.3)
[2021-01-03 07:36] LABS: BILIRUBIN,TOTAL 0.5 mg/dL (0.2-1); PHOSPHOROUS 1.6 mg/dL (2.5-4.9); TOT PROT 6.2 g/dl (6.4-8.2)
[2021-01-03 07:55] LABS: BLOOD UREA NITROGEN 22.7 mg/dL (7-18)
[2021-01-03 09:30] VITALS: TEMP 98.8
[2021-01-03] MEDS ORDERED: DEXTROSE 5%-WATER 100 ML IVPB ONE (09:34)
[2021-01-03] MEDS: MUPIROCIN 2% TOPICAL OINTMENT FOR DECOLONIZATION NS SCH (09:39)
[2021-01-03] MEDS: ASPIRIN 81 MG CHEWABLE TABLETS PO SCH (09:39)
[2021-01-03] MEDS: APIXABAN 5 MG TABLET PO SCH (09:39)
[2021-01-03] MEDS: DOCUSATE SODIUM 100 MG CAPSULE (FP) PO SCH (09:39)
[2021-01-03] MEDS: CEFTRIAXONE 2 GM in DEXTROSE 5%-WATER 2 GM/100 ML BAG IVPB SCH (09:40)
[2021-01-03] MEDS ORDERED: METOPROLOL TARTRATE 25 MG TABLET (FP) PO SCH (10:00)
[2021-01-03] MEDS ORDERED: VALSARTAN 80 MG TABLET PO SCH (10:00)
[2021-01-03] MEDS ORDERED: amLODIPine BESYLATE 5 MG TABLET (FP) PO SCH (10:00)
[2021-01-03] MEDS ORDERED: ACETAMINOPHEN 1000 MG/100 ML VIAL IVPB PRN (11:49)
[2021-01-03] MEDS: SODIUM CHLORIDE 1,000 ML IV SCH (13:00)
[2021-01-03 13:06] VITALS: BP 155/92; PULSE 82
[2021-01-03] MEDS ORDERED: LIDOCAINE PATCH REMOVAL MC SCH (22:00)
[2021-01-04] MEDS ORDERED: LIDOCAINE 5% TOPICAL PATCH TP SCH (10:00)
== END 2021-01-03 17:11 | disposition home or self-care (01) | DRG 917 ==
LOC: JER 11:20 → JERBED 15:19 → JICU 16:50
PROVIDERS: ADMIT Family Medicine; ATTEND Family Medicine
DX: T40.2X1A Poisoning by other opioids, accidental (unintentional), initial encounter (principal); G92.8 Other toxic encephalopathy; N17.9 Acute kidney failure, unspecified; E87.2 Acidosis; Z68.41 Body mass index [BMI] 40.0-44.9, adult; I24.8 Other forms of acute ischemic heart disease; N39.0 Urinary tract infection, site not specified; I10 Essential (primary) hypertension; E78.5 Hyperlipidemia, unspecified; K21.9 Gastro-esophageal reflux disease without esophagitis; G89.29 Other chronic pain; Y92.89 Other specified places as the place of occurrence of the external cause; I95.9 Hypotension, unspecified; R09.02 Hypoxemia; E66.01 Morbid (severe) obesity due to excess calories; R73.03 Prediabetes; I48.0 Paroxysmal atrial fibrillation; D64.9 Anemia, unspecified; M48.07 Spinal stenosis, lumbosacral region; G25.81 Restless legs syndrome; G47.33 Obstructive sleep apnea (adult) (pediatric)
CPT/HCPCS: 36415; 70450-TC; 71045-TC-FY; 76700-TC; 76775-TC; 80053; 80061; 80307; 81003; 82550; 82553; 82570; 82803; 83036; 83605; 83735; 84100; 84300; 84484; 85025; 85027; 85610; 85730; 86850; 86900; 86901; 87040; 87086; 93005; 93010; 93970-TC; 94761; 97116-GP; 97161-GP; 99285-25; C9803; J0131; U0003; U0005

== ENCOUNTER 2021-01-20 07:50 | Inpatient (IN) | payer OTHER ==
[2021-01-20 08:08] VITALS: BMI 44.2
[2021-01-20] MEDS ORDERED: METHOCARBAMOL 500 MG TABLET PO ONE (08:52)
[2021-01-20] MEDS ORDERED: ACETAMINOPHEN 1000 MG/100 ML VIAL IVPB ONE (08:52)
[2021-01-20] MEDS ORDERED: LIDOCAINE 5% TOPICAL PATCH TP ONE (08:53)
[2021-01-20] MEDS ORDERED: ONDANSETRON 4 MG/2 ML VIAL IVPUSH ONE (09:01)
[2021-01-20] MEDS ORDERED: METHOCARBAMOL 500 MG TABLET ONE ×2 (09:29→14:01)
[2021-01-20] MEDS ORDERED: ACETAMINOPHEN INJECTION 100 ML IVPB ONE (09:29)
[2021-01-20] MEDS ORDERED: ONDANSETRON 4 MG/2 ML VIAL ONE (09:29)
[2021-01-20] MEDS ORDERED: LIDOCAINE 5% TOPICAL PATCH ONE (09:29)
[2021-01-20 09:59] LABS: EOS % 2.2 % (0-4.5); HEMATOCRIT 35.1 % (32.4-45.2); HEMOGLOBIN 11.8 GM/dL (10.7-15.3); LYMPH % 27.9 % (8-40); MCH 30.1 pg (25.7-33.7); MCHC 33.7 g/dl (32.0-36.0); MEAN CELL VOLUME 89.4 fl (80-96); MEAN PLT VOLUME 8.1 fl (7.5-11.1); MONO % 8.1 % (3.8-10.2); NEUT % 60.8 % (42.8-82.8); PLATELET COUNT 295 10^3/uL (134-434); RBC 3.93 M/mm3 (3.60-5.2); RDW 15.3 % (11.6-15.6); WHITE BLOOD COUNT 7.2 K/mm3 (4.0-10.0)
[2021-01-20 10:28] LABS: CREATININE 1.3 mg/dL (0.55-1.3)
[2021-01-20 10:30] LABS: TOT PROT 6.7 g/dl (6.4-8.2)
[2021-01-20 11:17] LABS: ALBUMIN 3.2 g/dl (3.4-5.0); ALK PHOS 66 U/L (45-117); ANION GAP 10 MMOL/L (8-16); BILIRUBIN,TOTAL 0.5 mg/dL (0.2-1); BLOOD UREA NITROGEN 51.2 mg/dL (7-18); CALCIUM 8.2 mg/dL (8.5-10.1); CHLORIDE 109 mmol/L (98-107); CO2 25 mmol/L (21-32); GLUCOSE,RANDOM 108 mg/dL (74-106); SGOT/AST 15 U/L (15-37); SGPT/ALT 19 U/L (13-61); SODIUM 144 mmol/L (136-145)
[2021-01-20] MEDS ORDERED: GABAPENTIN 100 MG CAPSULE ONE (14:01)
[2021-01-20] MEDS: GABAPENTIN 300 MG CAPSULE PO SCH ×2 (14:04→22:22)
[2021-01-20] MEDS: METHOCARBAMOL 500 MG TABLET PO SCH ×2 (14:04→22:50)
[2021-01-20] MEDS: ENOXAPARIN NA (PORCINE) 120 MG/0.8 ML DISP.SYRIN SQ SCH ×2 (14:13→22:48)
[2021-01-20] MEDS ORDERED: morphine CARPU-JECT 2 MG/1 ML DISP.SYRIN IVPUSH ONE (16:21)
[2021-01-20] MEDS ORDERED: morphine SULFATE 4 MG/ML VIAL ONE (16:40)
[2021-01-20] MEDS ORDERED: LIDOCAINE PATCH REMOVAL MC ONE (22:00)
[2021-01-20] MEDS ORDERED: LIDOCAINE PATCH REMOVAL MC SCH (22:00)
[2021-01-20] MEDS ORDERED: ALPRAZolam 0.25 MG TABLET PO SCH (22:00)
[2021-01-20] MEDS ORDERED: ZOLPIDEM TARTRATE 5 MG TABLET PO SCH (22:00)
[2021-01-20] MEDS: traMADol HCL 50 MG TABLET PO PRN (22:22)
[2021-01-20] MEDS: VALSARTAN 160 MG TABLET PO SCH (22:24)
[2021-01-20] MEDS: METOPROLOL TARTRATE 25 MG TABLET (FP) PO SCH (22:24)
[2021-01-20] MEDS: DOCUSATE SODIUM 100 MG CAPSULE (FP) PO SCH (22:32)
[2021-01-20] MEDS ORDERED: PT OWN MED DRAWER 7, Y5N ONE (22:53)
[2021-01-21] MEDS: ACETAMINOPHEN 1000 MG/100 ML VIAL IVPB PRN ×2 (00:20→06:02)
[2021-01-21] MEDS: traMADol HCL 50 MG TABLET PO PRN ×2 (04:02→09:21)
[2021-01-21 04:37] LABS: URINE APPEARANCE CLEAR; URINE BILIRUBIN NEGATIVE (NEGATIVE); URINE COLOR YELLOW; URINE GLUCOSE (UA) NEGATIVE (NEGATIVE); URINE KETONE NEGATIVE (NEGATIVE); URINE LEUK ESTERASE NEGATIVE (NEGATIVE); URINE NITRITE NEGATIVE (NEGATIVE); URINE PROTEIN NEGATIVE (NEGATIVE); URINE UROBILINOGEN 0.2 mg/dL (0.2-1.0)
[2021-01-21] MEDS: GABAPENTIN 300 MG CAPSULE PO SCH ×2 (05:59→13:23)
[2021-01-21] MEDS: METHOCARBAMOL 500 MG TABLET PO SCH ×2 (05:59→13:23)
[2021-01-21 06:48] LABS: HEMATOCRIT 34.9 % (32.4-45.2); HEMOGLOBIN 11.6 GM/dL (10.7-15.3); MCH 30.3 pg (25.7-33.7); MCHC 33.3 g/dl (32.0-36.0); MEAN CELL VOLUME 91.2 fl (80-96); MEAN PLT VOLUME 7.9 fl (7.5-11.1); PLATELET COUNT 290 10^3/uL (134-434); RBC 3.83 M/mm3 (3.60-5.2); RDW 15.6 % (11.6-15.6); WHITE BLOOD COUNT 7.8 K/mm3 (4.0-10.0)
[2021-01-21 08:33] VITALS: BP 114/62; PULSE 98; TEMP 98
[2021-01-21 08:58] LABS: ALBUMIN 3.1 g/dl (3.4-5.0); ALK PHOS 66 U/L (45-117); ANION GAP 9 MMOL/L (8-16); BILIRUBIN,TOTAL 0.3 mg/dL (0.2-1); BLOOD UREA NITROGEN 47.5 mg/dL (7-18); CALCIUM 7.9 mg/dL (8.5-10.1); CHLORIDE 108 mmol/L (98-107); CO2 26 mmol/L (21-32); CREATININE 1.2 mg/dL (0.55-1.3); GLUCOSE,RANDOM 112 mg/dL (74-106); MAGNESIUM 2.1 mg/dL (1.8-2.4); SGOT/AST 15 U/L (15-37); SGPT/ALT 17 U/L (13-61); SODIUM 143 mmol/L (136-145); TOT PROT 6.4 g/dl (6.4-8.2)
[2021-01-21] MEDS ORDERED: PT OWN MED DRAWER 7, Y5N ONE ×2 (09:08→13:21)
[2021-01-21] MEDS: ENOXAPARIN NA (PORCINE) 120 MG/0.8 ML DISP.SYRIN SQ SCH (09:20)
[2021-01-21] MEDS: DOCUSATE SODIUM 100 MG CAPSULE (FP) PO SCH (09:21)
[2021-01-21] MEDS: VALSARTAN 160 MG TABLET PO SCH (09:22)
[2021-01-21] MEDS: METOPROLOL TARTRATE 25 MG TABLET (FP) PO SCH (09:22)
[2021-01-21] MEDS ORDERED: amLODIPine BESYLATE 5 MG TABLET (FP) PO SCH (10:00)
[2021-01-21] MEDS ORDERED: LIDOCAINE 5% TOPICAL PATCH TP SCH (10:00)
[2021-01-21] MEDS ORDERED: PANTOPRAZOLE 40 MG TABLET PO SCH (10:00)
[2021-01-21 10:36] LABS: ANISOCYTOSIS 0; HELMET CELLS 0; HOWELL-JOLLY BODIES 0; MACROCYTOSIS 0; OVALOCYTE 0; PLATELET ESTIMATE NORMAL; ROULEAU 0; SICKELED CELLS 0; TARGET CELLS 0; TEAR DROP CELLS 0; TOXIC GRANULATION 0
== END 2021-01-21 18:34 | disposition home or self-care (01) | DRG 552 ==
LOC: JER 07:50 → INTOOBSV 11:19 → JERBED 11:19 → OBSVTOIN 17:01 → J4W 22:08
PROVIDERS: ADMIT Family Medicine; ATTEND Family Medicine
DX: M48.061 Spinal stenosis, lumbar region without neurogenic claudication (principal); Z68.41 Body mass index [BMI] 40.0-44.9, adult; M54.9 Dorsalgia, unspecified; I10 Essential (primary) hypertension; I48.91 Unspecified atrial fibrillation; E78.5 Hyperlipidemia, unspecified; K21.9 Gastro-esophageal reflux disease without esophagitis; E11.9 Type 2 diabetes mellitus without complications; M54.16 Radiculopathy, lumbar region; R07.89 Other chest pain; E66.9 Obesity, unspecified
CPT/HCPCS: 36415; 71045-TC-FY; 80053; 81003; 82550; 83735; 84484; 85025; 87086; 93005; 93010; 99284-25; 99285-25; C9803; G0378; J0131; U0003; U0005

== ENCOUNTER 2021-01-24 05:19 | Day surgery (SDC) | payer OTHER ==
[2021-01-23 15:05] VITALS: BMI 44.2
[2021-01-24] MEDS ORDERED: BUPIVACAINE HCL/PF 0.75% 10 ML VIAL NR ONE ×3 (11:08→11:18)
[2021-01-24] MEDS ORDERED: IOHEXOL 180 MG/1 ML ML IJ ONE (11:08)
[2021-01-24] MEDS ORDERED: LIDOCAINE HCL 1% PRESERVATIVE FREE - 30ML VIAL IJ ONE ×2 (11:08→11:14)
[2021-01-24 11:42] VITALS: PULSE 78; TEMP 96
[2021-01-24 14:28] VITALS: BP 130/70
== END 2021-01-24 13:20 | disposition home or self-care (01) ==
LOC: JASU-SURG 05:19
PROVIDERS: ATTEND Pain Medicine Pain Medicine
PROC: 3E0T33Z Introduction of Anti-inflammatory into Peripheral Nerves and Plexi, Percutaneous Approach (ICD-10-PCS; 2021-01-24)
PROC: 3E0T3BZ Introduction of Anesthetic Agent into Peripheral Nerves and Plexi, Percutaneous Approach (ICD-10-PCS; principal; 2021-01-24 11:00)
DX: M47.816 Spondylosis without myelopathy or radiculopathy, lumbar region (principal)
CPT/HCPCS: 76000-TC-FY; J1100

== ENCOUNTER 2021-01-25 10:40 | Emergency (ER) | payer OTHER ==
[2021-01-25 10:58] VITALS: TEMP 98; BMI 44.2
[2021-01-25] MEDS ORDERED: ACETAMINOPHEN 500 MG TABLET (FP) PO ONE (11:39)
[2021-01-25] MEDS ORDERED: METHOCARBAMOL 750 MG TABLET PO ONE (11:40)
[2021-01-25] MEDS ORDERED: LIDOCAINE 5% TOPICAL PATCH TP ONE (11:41)
[2021-01-25] MEDS ORDERED: ACETAMINOPHEN 325 MG TABLET (FP) ONE (11:46)
[2021-01-25] MEDS ORDERED: LIDOCAINE 5% TOPICAL PATCH ONE (11:46)
[2021-01-25] MEDS ORDERED: METHOCARBAMOL 500 MG TABLET ONE ×2 (11:46→15:36)
[2021-01-25 12:42] LABS: CHLORIDE 107 mmol/L (98-107); SODIUM 141 mmol/L (136-145)
[2021-01-25 12:45] LABS: ANION GAP 10 MMOL/L (8-16); CO2 24 mmol/L (21-32)
[2021-01-25 12:46] LABS: ALBUMIN 3.5 g/dl (3.4-5.0); GLUCOSE,RANDOM 116 mg/dL (74-106)
[2021-01-25 12:48] LABS: SGPT/ALT 28 U/L (13-61)
[2021-01-25 12:49] LABS: BILIRUBIN,TOTAL 0.4 mg/dL (0.2-1); CREATININE 0.9 mg/dL (0.55-1.3); SGOT/AST 23 U/L (15-37); TOT PROT 7.8 g/dl (6.4-8.2)
[2021-01-25 12:50] LABS: BASO % 0.5 % (0-2.0); EOS % 1.7 % (0-4.5); HEMATOCRIT 38.9 % (32.4-45.2); HEMOGLOBIN 12.8 GM/dL (10.7-15.3); LYMPH % 14.4 % (8-40); MCH 29.8 pg (25.7-33.7); MCHC 32.9 g/dl (32.0-36.0); MEAN CELL VOLUME 90.7 fl (80-96); MEAN PLT VOLUME 8.4 fl (7.5-11.1); MONO % 4.9 % (3.8-10.2); NEUT % 78.5 % (42.8-82.8); PLATELET COUNT 320 10^3/uL (134-434); RBC 4.28 M/mm3 (3.60-5.2); RDW 15.6 % (11.6-15.6)
[2021-01-25 12:51] LABS: ALK PHOS 73 U/L (45-117)
[2021-01-25 12:59] LABS: CALCIUM 9.2 mg/dL (8.5-10.1)
[2021-01-25 14:04] VITALS: BP 135/66; PULSE 72
[2021-01-25] MEDS ORDERED: METHOCARBAMOL 500 MG TABLET PO ONE (15:05)
[2021-01-25] MEDS ORDERED: KETOROLAC TROMETHAMINE 15 MG/ML VIAL IVPUSH ONE (15:38)
[2021-01-25] MEDS ORDERED: KETOROLAC TROMETHAMINE 30 MG/1 ML VIAL ONE (15:47)
[2021-01-25] MEDS ORDERED: KETOROLAC TROMETHAMINE 15 MG/ML VIAL ONE (15:47)
[2021-01-25] MEDS ORDERED: LIDOCAINE PATCH REMOVAL MC ONE (22:00)
== END 2021-01-25 15:56 | disposition home or self-care (01) ==
LOC: JER 10:40
PROC: 3E0333Z Introduction of Anti-inflammatory into Peripheral Vein, Percutaneous Approach (ICD-10-PCS; principal; 2021-01-25)
DX: M51.36 Other intervertebral disc degeneration, lumbar region (principal); M54.50 Low back pain, unspecified
CPT/HCPCS: 36415; 72128-TC; 72131-TC; 74176-TC; 80053; 84484; 85025; 93005; 93010; 99285-25

== ENCOUNTER 2021-01-28 10:46 | Emergency (ER) | payer OTHER ==
[2021-01-28 11:21] VITALS: BMI 42.5
[2021-01-28] MEDS ORDERED: METHOCARBAMOL 500 MG TABLET PO ONE (12:22)
[2021-01-28] MEDS ORDERED: METHOCARBAMOL 500 MG TABLET ONE (13:11)
[2021-01-28 15:09] LABS: BASO % 0.6 % (0-2.0); EOS % 1.8 % (0-4.5); HEMATOCRIT 35.8 % (32.4-45.2); HEMOGLOBIN 11.9 GM/dL (10.7-15.3); LYMPH % 23.3 % (8-40); MCH 30.1 pg (25.7-33.7); MCHC 33.2 g/dl (32.0-36.0); MEAN CELL VOLUME 90.7 fl (80-96); MEAN PLT VOLUME 7.9 fl (7.5-11.1); MONO % 8.4 % (3.8-10.2); NEUT % 65.9 % (42.8-82.8); PLATELET COUNT 267 10^3/uL (134-434); RBC 3.95 M/mm3 (3.60-5.2); RDW 15.3 % (11.6-15.6); WHITE BLOOD COUNT 8.5 K/mm3 (4.0-10.0)
[2021-01-28 15:23] LABS: CHLORIDE 101 mmol/L (98-107); SODIUM 140 mmol/L (136-145)
[2021-01-28 15:25] LABS: ALBUMIN 3.3 g/dl (3.4-5.0); ANION GAP 10 MMOL/L (8-16); CALCIUM 8.8 mg/dL (8.5-10.1); CO2 29 mmol/L (21-32); GLUCOSE,RANDOM 92 mg/dL (74-106)
[2021-01-28 15:28] LABS: SGOT/AST 16 U/L (15-37); SGPT/ALT 23 U/L (13-61)
[2021-01-28 15:30] LABS: BILIRUBIN,TOTAL 0.5 mg/dL (0.2-1); TOT PROT 6.9 g/dl (6.4-8.2)
[2021-01-28 15:31] LABS: ALK PHOS 65 U/L (45-117)
[2021-01-28 17:09] VITALS: BP 153/79; PULSE 93; TEMP 98.2
[2021-01-28 18:04] LABS: PH,URINE 5.5 (5.0-8.0); URINE APPEARANCE CLEAR; URINE BILIRUBIN NEGATIVE (NEGATIVE); URINE COLOR YELLOW; URINE GLUCOSE (UA) NEGATIVE (NEGATIVE); URINE KETONE NEGATIVE (NEGATIVE); URINE LEUK ESTERASE NEGATIVE (NEGATIVE); URINE NITRITE NEGATIVE (NEGATIVE); URINE PROTEIN NEGATIVE (NEGATIVE); URINE UROBILINOGEN 0.2 mg/dL (0.2-1.0)
== END 2021-01-28 18:20 | disposition home or self-care (01) ==
LOC: JER 10:46
DX: M54.50 Low back pain, unspecified (principal)
CPT/HCPCS: 36415; 76937; 80053; 81003; 82550; 84484; 85025; 87086; 87186; 93005; 93010; 99285-25

== ENCOUNTER 2021-02-18 04:22 | Day surgery (SDC) | payer OTHER ==
[2021-02-17 10:40] VITALS: BMI 42.5
[2021-02-18] MEDS ORDERED: LIDOCAINE HCL/PF 1% SDV 5ML VIAL ONE (07:21)
[2021-02-18] MEDS ORDERED: DEXAMETHASONE SOD PHOSPHATE 10 MG/1 ML VIAL ONE (07:21)
[2021-02-18 10:07] VITALS: BP 150/90; TEMP 98.9
[2021-02-18 10:29] VITALS: PULSE 84
== END 2021-02-18 09:55 | disposition home or self-care (01) ==
LOC: JASU-SURG 04:22
PROVIDERS: ATTEND Pain Medicine Pain Medicine
PROC: 3E0R33Z Introduction of Anti-inflammatory into Spinal Canal, Percutaneous Approach (ICD-10-PCS; 2021-02-18)
PROC: B01BZZZ Fluoroscopy of Spinal Cord (ICD-10-PCS; 2021-02-18)
PROC: 3E0R3BZ Introduction of Anesthetic Agent into Spinal Canal, Percutaneous Approach (ICD-10-PCS; principal; 2021-02-18 08:52)
DX: M48.061 Spinal stenosis, lumbar region without neurogenic claudication (principal); M54.16 Radiculopathy, lumbar region; Z53.8 Procedure and treatment not carried out for other reasons
CPT/HCPCS: 76000-TC-FY; J1100

== ENCOUNTER 2021-03-05 12:00 | Inpatient (IN) | payer OTHER ==
[2021-03-05 12:35] VITALS: BMI 39.9
[2021-03-05] MEDS ORDERED: ACETAMINOPHEN 325 MG TABLET (FP) PO ONE (13:18)
[2021-03-05] MEDS ORDERED: SODIUM CHLORIDE 0.9% 500 ML INFUS.BAG IV ONE (13:19)
[2021-03-05] MEDS ORDERED: ACETAMINOPHEN 325 MG TABLET (FP) ONE (13:23)
[2021-03-05 13:42] LABS: ALBUMIN 3.5 g/dl (3.4-5.0); BILIRUBIN,TOTAL 1.1 mg/dl (0.2-1); CALCIUM 8.4 mg/dl (8.5-10); CREATININE 2.7 mg/dl (0.55-1.3); TOT PROT 6.8 g/dl (6.4-8.2)
[2021-03-05] MEDS ORDERED: KCL 10 MEQ IVPB 10 MEQ/100 ML INFUS.BAG IVPB SCH (13:45)
[2021-03-05] MEDS ORDERED: POTASSIUM CHLORIDE ORAL LIQUID 20 MEQ/15 ML PO ONE (13:45)
[2021-03-05] MEDS ORDERED: KCL 10 MEQ IVPB 10 MEQ/100 ML INFUS.BAG IVPB ONE (13:49)
[2021-03-05] MEDS ORDERED: POTASSIUM CHLORIDE ORAL LIQUID 20 MEQ/15 ML ONE (13:49)
[2021-03-05 16:13] LABS: EOS % 1.4 % (0-4.5); HEMATOCRIT 37.7 % (32.4-45.2); HEMOGLOBIN 12.4 GM/dL (10.7-15.3); LYMPH % 19.3 % (8-40); MCH 29.4 pg (25.7-33.7); MCHC 32.9 g/dl (32.0-36.0); MEAN CELL VOLUME 89.4 fl (80-96); MEAN PLT VOLUME 9.1 fl (7.5-11.1); MONO % 10.3 % (3.8-10.2); PLATELET COUNT 279 10^3/uL (134-434); RBC 4.22 M/mm3 (3.60-5.2); RDW 14.5 % (11.6-15.6); WHITE BLOOD COUNT 6.3 K/mm3 (4.0-10.0)
[2021-03-05] MEDS ORDERED: SODIUM CHLORIDE 1,000 ML IV SCH (18:15)
[2021-03-05 18:30] LABS: MAGNESIUM 1.5 mg/dL (1.8-2.4)
[2021-03-05] MEDS ORDERED: MAGNESIUM SULF 50% (8.12 MEQ/2 ML-1 GM VIAL) IVPB ONE (20:29)
[2021-03-05] MEDS ORDERED: ACETAMINOPHEN 325 MG TABLET (FP) PO PRN (21:57)
[2021-03-05] MEDS: METOPROLOL TARTRATE 25 MG TABLET (FP) PO SCH (22:04)
[2021-03-05] MEDS: ATORVASTATIN CA 10 MG TABLET (FP) PO SCH (22:04)
[2021-03-05 22:09] LABS: CALCIUM 8.1 mg/dL (8.5-10.1)
[2021-03-05 22:13] LABS: CREATININE 2.5 mg/dL (0.55-1.3)
[2021-03-05] MEDS: KCL 10 MEQ IVPB 10 MEQ/100 ML INFUS.BAG IVPB SCH (23:19)
[2021-03-06] MEDS: KCL 10 MEQ IVPB 10 MEQ/100 ML INFUS.BAG IVPB SCH (00:57)
[2021-03-06 10:15] LABS: EOS % 2.1 % (0-4.5); HEMATOCRIT 35.6 % (32.4-45.2); HEMOGLOBIN 11.5 GM/dL (10.7-15.3); LYMPH % 25.6 % (8-40); MCH 29.1 pg (25.7-33.7); MCHC 32.3 g/dl (32.0-36.0); MEAN CELL VOLUME 90.1 fl (80-96); MEAN PLT VOLUME 8.6 fl (7.5-11.1); NEUT % 60.3 % (42.8-82.8); PLATELET COUNT 264 10^3/uL (134-434); RBC 3.95 M/mm3 (3.60-5.2); RDW 14.6 % (11.6-15.6); WHITE BLOOD COUNT 4.6 K/mm3 (4.0-10.0)
[2021-03-06 10:19] LABS: INR 1.08 (0.83-1.09); PROTHROMBIN TIME (PATIENT) 12.4 SEC (9.7-13.0)
[2021-03-06 11:04] LABS: ALBUMIN 3.1 g/dl (3.4-5.0); BLOOD UREA NITROGEN 35.8 mg/dL (7-18); CALCIUM 8.7 mg/dL (8.5-10.1)
[2021-03-06 11:05] LABS: MAGNESIUM 2.4 mg/dL (1.8-2.4)
[2021-03-06 11:08] LABS: CREATININE 1.7 mg/dL (0.55-1.3)
[2021-03-06 11:09] LABS: BILIRUBIN,TOTAL 0.5 mg/dL (0.2-1); TOT PROT 6.2 g/dl (6.4-8.2)
[2021-03-06] MEDS: APIXABAN 2.5 MG TABLET PO SCH ×2 (11:27→22:59)
[2021-03-06] MEDS: METOPROLOL TARTRATE 25 MG TABLET (FP) PO SCH ×2 (11:27→22:59)
[2021-03-06] MEDS ORDERED: POTASSIUM CHLORIDE TABS 20 MEQ TABLET.ER (FP) PO ONE ×2 (11:33→12:00)
[2021-03-06 21:04] LABS: BLOOD UREA NITROGEN 36.2 mg/dL (7-18); CALCIUM 8.5 mg/dL (8.5-10.1)
[2021-03-06 21:07] LABS: CREATININE 1.4 mg/dL (0.55-1.3)
[2021-03-06] MEDS: ATORVASTATIN CA 10 MG TABLET (FP) PO SCH (22:59)
[2021-03-07] MEDS: METOPROLOL TARTRATE 25 MG TABLET (FP) PO SCH (10:23)
[2021-03-07] MEDS: APIXABAN 2.5 MG TABLET PO SCH (10:23)
[2021-03-07 10:35] LABS: BASO % 0.9 % (0-2.0); EOS % 2.1 % (0-4.5); HEMATOCRIT 34.8 % (32.4-45.2); HEMOGLOBIN 11.6 GM/dL (10.7-15.3); LYMPH % 22.9 % (8-40); MCH 29.6 pg (25.7-33.7); MCHC 33.2 g/dl (32.0-36.0); MEAN CELL VOLUME 89.2 fl (80-96); MEAN PLT VOLUME 8.4 fl (7.5-11.1); MONO % 11.4 % (3.8-10.2); NEUT % 62.7 % (42.8-82.8); PLATELET COUNT 209 10^3/uL (134-434); RBC 3.91 M/mm3 (3.60-5.2); RDW 14.3 % (11.6-15.6); WHITE BLOOD COUNT 4.4 K/mm3 (4.0-10.0)
[2021-03-07 10:58] LABS: CHLORIDE 111 mmol/L (98-107); SODIUM 145 mmol/L (136-145)
[2021-03-07 11:00] LABS: CALCIUM 8.4 mg/dL (8.5-10.1)
[2021-03-07 11:01] LABS: ALBUMIN 3.1 g/dl (3.4-5.0); BLOOD UREA NITROGEN 28.8 mg/dL (7-18); CO2 25 mmol/L (21-32); GLUCOSE,RANDOM 127 mg/dL (74-106)
[2021-03-07 11:03] LABS: SGPT/ALT 21 U/L (13-61)
[2021-03-07 11:04] LABS: CREATININE 1.1 mg/dL (0.55-1.3); PHOSPHOROUS 3.6 mg/dL (2.5-4.9); SGOT/AST 20 U/L (15-37)
[2021-03-07 11:05] LABS: BILIRUBIN,TOTAL 0.5 mg/dL (0.2-1); TOT PROT 6.2 g/dl (6.4-8.2)
[2021-03-07 11:07] LABS: ALK PHOS 60 U/L (45-117)
[2021-03-07 11:08] LABS: ANION GAP 9 MMOL/L (8-16)
[2021-03-07] MEDS ORDERED: POTASSIUM CHLORIDE TABS 20 MEQ TABLET.ER (FP) PO ONE ×2 (11:45→14:30)
[2021-03-07] MEDS: KCL 10 MEQ IVPB 10 MEQ/100 ML INFUS.BAG IVPB SCH ×2 (12:08→14:59)
[2021-03-07 20:19] VITALS: BP 121/88; PULSE 82; TEMP 98.1
== END 2021-03-07 17:06 | disposition home or self-care (01) | DRG 682 ==
LOC: FER 12:00 → J5S 18:09 → INTOOBSV 19:18 → UNDOADMOB 19:18 → OBSVTOIN 03-07 15:19
PROVIDERS: ADMIT Family Medicine
DX: N17.9 Acute kidney failure, unspecified (principal); U07.1 COVID-19; J12.82 Pneumonia due to coronavirus disease 2019; I48.20 Chronic atrial fibrillation, unspecified; E87.6 Hypokalemia; I10 Essential (primary) hypertension; E78.5 Hyperlipidemia, unspecified; K21.9 Gastro-esophageal reflux disease without esophagitis; E86.0 Dehydration; N28.1 Cyst of kidney, acquired; E66.9 Obesity, unspecified; Z68.39 Body mass index [BMI] 39.0-39.9, adult
CPT/HCPCS: 36415; 71045-TC-FY; 76775-TC; 80048; 80053; 81003; 82550; 82728; 83735; 84100; 85025; 85379; 85610; 86140; 93005; 99285-25; C9803; G0378; U0003; U0005

== ENCOUNTER 2021-04-02 08:10 | Emergency (ER) | payer OTHER ==
[2021-04-02 08:16] VITALS: BP 154/83; PULSE 91; TEMP 98.6; BMI 41.5
[2021-04-02] MEDS ORDERED: ACETAMINOPHEN 1000 MG/100 ML BAG IVPB ONE (09:06)
[2021-04-02] MEDS ORDERED: ACETAMINOPHEN INJECTION 100 ML IVPB ONE (09:09)
[2021-04-02 09:18] LABS: BASO % 0.5 % (0-2.0); EOS % 0.4 % (0-4.5); HEMATOCRIT 32.6 % (32.4-45.2); HEMOGLOBIN 10.9 GM/dL (10.7-15.3); LYMPH % 9.9 % (8-40); MCH 29.9 pg (25.7-33.7); MCHC 33.6 g/dl (32.0-36.0); MEAN PLT VOLUME 7.7 fl (7.5-11.1); MONO % 6.7 % (3.8-10.2); NEUT % 82.5 % (42.8-82.8); PLATELET COUNT 334 10^3/uL (134-434); RBC 3.66 M/mm3 (3.60-5.2); RDW 14.6 % (11.6-15.6); WHITE BLOOD COUNT 9.7 K/mm3 (4.0-10.0)
[2021-04-02 09:41] LABS: CALCIUM 8.5 mg/dL (8.5-10.1)
[2021-04-02 09:42] LABS: ALBUMIN 3.1 g/dl (3.4-5.0); BLOOD UREA NITROGEN 14.6 mg/dL (7-18)
[2021-04-02 09:44] LABS: CREATININE 0.7 mg/dL (0.55-1.3)
[2021-04-02 09:46] LABS: BILIRUBIN,TOTAL 0.6 mg/dL (0.2-1); TOT PROT 6.6 g/dl (6.4-8.2)
[2021-04-02 10:11] LABS: ERYTHROCYTE SEDIMENTATION RATE 66 mm/hr (0-30)
[2021-04-02] MEDS ORDERED: KETOROLAC TROMETHAMINE 15 MG/ML VIAL IVPUSH ONE (11:19)
[2021-04-02] MEDS ORDERED: KETOROLAC TROMETHAMINE 15 MG/ML VIAL ONE (11:26)
== END 2021-04-02 12:45 | disposition home or self-care (01) ==
LOC: JER 08:10
PROC: 3E0333Z Introduction of Anti-inflammatory into Peripheral Vein, Percutaneous Approach (ICD-10-PCS; principal; 2021-04-02)
PROC: 3E0333Z Introduction of Anti-inflammatory into Peripheral Vein, Percutaneous Approach (ICD-10-PCS; 2021-04-02)
DX: M25.571 Pain in right ankle and joints of right foot (principal); M19.071 Primary osteoarthritis, right ankle and foot
CPT/HCPCS: 36415; 73630-TC-RT-FY; 80053; 84550; 85025; 85651; 86140; 93971-TC; 99285-25

== ENCOUNTER 2021-05-01 01:39 | Observation (INO) | payer OTHER ==
[2021-05-01 02:02] VITALS: BMI 38.2
[2021-05-01] MEDS ORDERED: morphine CARPU-JECT 4 MG/1 ML DISP.SYRIN IVPUSH ONE (02:12)
[2021-05-01] MEDS ORDERED: morphine SULFATE 4 MG/ML VIAL ONE (02:20)
[2021-05-01 02:41] LABS: BASO % 0.6 % (0-2.0); EOS % 2.7 % (0-4.5); HEMATOCRIT 35.2 % (32.4-45.2); HEMOGLOBIN 11.9 GM/dL (10.7-15.3); LYMPH % 23.3 % (8-40); MCH 29.2 pg (25.7-33.7); MCHC 33.8 g/dl (32.0-36.0); MEAN CELL VOLUME 86.3 fl (80-96); MEAN PLT VOLUME 8.1 fl (7.5-11.1); MONO % 9.4 % (3.8-10.2); PLATELET COUNT 333 10^3/uL (134-434); RBC 4.08 M/mm3 (3.60-5.2); RDW 15.6 % (11.6-15.6); WHITE BLOOD COUNT 8.6 K/mm3 (4.0-10.0)
[2021-05-01 03:03] LABS: ACTIVATED PTT 33.1 SECONDS (25.2-36.5); ALBUMIN 3.8 g/dl (3.4-5.0); BLOOD UREA NITROGEN 26.3 mg/dL (7-18); INR 1.11 (0.83-1.09); PROTHROMBIN TIME (PATIENT) 12.8 SEC (9.7-13.0)
[2021-05-01 03:06] LABS: CREATININE 1.1 mg/dL (0.55-1.3)
[2021-05-01 03:07] LABS: TOT PROT 7.3 g/dl (6.4-8.2)
[2021-05-01 03:08] LABS: BILIRUBIN,TOTAL 0.4 mg/dL (0.2-1)
[2021-05-01] MEDS ORDERED: ASPIRIN 81 MG CHEWABLE TABLETS PO ONE (05:31)
[2021-05-01] MEDS ORDERED: ASPIRIN 81 MG CHEWABLE TABLETS ONE (05:41)
[2021-05-01] MEDS ORDERED: ACETAMINOPHEN 325 MG TABLET (FP) PO PRN (06:05)
[2021-05-01] MEDS ORDERED: METOPROLOL TARTRATE 25 MG TABLET (FP) ONE (09:44)
[2021-05-01] MEDS ORDERED: FAMOTIDINE 20 MG TABLET ONE (09:44)
[2021-05-01] MEDS ORDERED: APIXABAN 5 MG TABLET ONE (09:44)
[2021-05-01] MEDS ORDERED: DOCUSATE SODIUM 100 MG CAPSULE (FP) PO ONE (09:44)
[2021-05-01] MEDS ORDERED: VALSARTAN 80 MG TABLET ONE (09:44)
[2021-05-01] MEDS ORDERED: FUROSEMIDE 20 MG TABLET (FP) ONE (09:45)
[2021-05-01] MEDS: APIXABAN 5 MG TABLET PO SCH ×2 (09:54→21:49)
[2021-05-01] MEDS: DOCUSATE SODIUM 100 MG CAPSULE (FP) PO SCH ×2 (09:54→21:49)
[2021-05-01] MEDS: FAMOTIDINE 40 MG TABLET PO SCH (09:54)
[2021-05-01] MEDS: FUROSEMIDE 20 MG TABLET (FP) PO SCH (09:54)
[2021-05-01] MEDS: VALSARTAN 160 MG TABLET PO SCH (09:54)
[2021-05-01] MEDS: METOPROLOL TARTRATE 25 MG TABLET (FP) PO SCH ×2 (09:54→21:49)
[2021-05-01] MEDS ORDERED: CYCLOBENZAPRINE HCL 10 MG TABLET (FP) PO ONE ×2 (11:32→17:00)
[2021-05-01] MEDS: LIDOCAINE 5% TOPICAL PATCH TP SCH (17:00)
[2021-05-01] MEDS ORDERED: TIZANIDINE HCL 4 MG TABLET PO ONE (19:18)
[2021-05-01] MEDS: CYCLOBENZAPRINE HCL 5 MG TABLET PO SCH (21:48)
[2021-05-01] MEDS ORDERED: LIDOCAINE PATCH REMOVAL MC SCH (22:00)
[2021-05-01] MEDS ORDERED: ATORVASTATIN CA 10 MG TABLET (FP) PO SCH (22:00)
[2021-05-01] MEDS ORDERED: oxyCODONE HCL 5 MG TABLET PO ONE (22:03)
[2021-05-02] MEDS ORDERED: ASPIRIN 81 MG CHEWABLE TABLETS PO SCH (10:00)
[2021-05-02] MEDS: CYCLOBENZAPRINE HCL 5 MG TABLET PO SCH (11:54)
[2021-05-02] MEDS: VALSARTAN 160 MG TABLET PO SCH (11:54)
[2021-05-02] MEDS: FUROSEMIDE 20 MG TABLET (FP) PO SCH (11:54)
[2021-05-02] MEDS: APIXABAN 5 MG TABLET PO SCH (11:54)
[2021-05-02] MEDS: METOPROLOL TARTRATE 25 MG TABLET (FP) PO SCH (11:54)
[2021-05-02] MEDS: LIDOCAINE 5% TOPICAL PATCH TP SCH (11:55)
[2021-05-02] MEDS: DOCUSATE SODIUM 100 MG CAPSULE (FP) PO SCH (11:55)
[2021-05-02] MEDS: FAMOTIDINE 40 MG TABLET PO SCH (11:56)
[2021-05-02 15:06] VITALS: BP 150/78; PULSE 77; TEMP 98.6
[2021-05-02 16:25] LABS: URINE APPEARANCE CLEAR; URINE BILIRUBIN NEGATIVE (NEGATIVE); URINE COLOR YELLOW; URINE GLUCOSE (UA) NEGATIVE (NEGATIVE); URINE KETONE NEGATIVE (NEGATIVE); URINE LEUK ESTERASE NEGATIVE (NEGATIVE); URINE NITRITE NEGATIVE (NEGATIVE); URINE PROTEIN NEGATIVE (NEGATIVE); URINE UROBILINOGEN 0.2 mg/dL (0.2-1.0)
== END 2021-05-02 17:30 | disposition home or self-care (01) ==
LOC: JER 01:39 → JERBED 05:30 → J7W 11:07
PROVIDERS: ADMIT Internal Medicine; ATTEND Family Medicine
PROC: 3E033NZ Introduction of Analgesics, Hypnotics, Sedatives into Peripheral Vein, Percutaneous Approach (ICD-10-PCS; principal; 2021-05-01)
DX: M54.9 Dorsalgia, unspecified (principal); R07.89 Other chest pain; G89.29 Other chronic pain; I48.0 Paroxysmal atrial fibrillation; I10 Essential (primary) hypertension; E78.5 Hyperlipidemia, unspecified; N28.9 Disorder of kidney and ureter, unspecified; R73.03 Prediabetes; K21.9 Gastro-esophageal reflux disease without esophagitis; N20.0 Calculus of kidney; Z86.16 Personal history of COVID-19; K59.00 Constipation, unspecified; M19.90 Unspecified osteoarthritis, unspecified site; Z96.653 Presence of artificial knee joint, bilateral; Z90.49 Acquired absence of other specified parts of digestive tract; E66.8 Other obesity; Z68.39 Body mass index [BMI] 39.0-39.9, adult; Z79.01 Long term (current) use of anticoagulants; Z68.38 Body mass index [BMI] 38.0-38.9, adult
CPT/HCPCS: 36415; 71045-TC-FY; 80053; 81003; 83605; 83735; 84484; 85025; 85610; 85730; 93005; 93010; 96374; 97116-GP; 97161-GP; 99285-25; C9803-CS; G0378; U0003; U0005

== ENCOUNTER 2021-05-03 09:44 | Emergency (ER) | payer OTHER ==
[2021-05-03 09:58] VITALS: BP 143/88; PULSE 88; TEMP 97.6; BMI 38.2
[2021-05-03] MEDS ORDERED: LIDOCAINE 5% TOPICAL PATCH TP ONE (10:30)
[2021-05-03] MEDS ORDERED: LIDOCAINE PATCH REMOVAL MC ONE (22:00)
== END 2021-05-03 14:24 | disposition home or self-care (01) ==
LOC: JER 09:44
DX: M54.50 Low back pain, unspecified (principal)
CPT/HCPCS: 99283-25

== ENCOUNTER 2021-05-05 23:10 | Observation (INO) | payer OTHER ==
[2021-05-05] MEDS ORDERED: morphine CARPU-JECT 2 MG/1 ML DISP.SYRIN IVPUSH ONE (23:48)
[2021-05-05] MEDS ORDERED: LIDOCAINE 5% TOPICAL PATCH TP ONE (23:48)
[2021-05-05] MEDS ORDERED: methylPREDNISolone NA SUCC 125 MG/2 ML VIAL IVPUSH ONE (23:48)
[2021-05-06] MEDS ORDERED: LIDOCAINE 5% TOPICAL PATCH ONE (00:02)
[2021-05-06] MEDS ORDERED: methylPREDNISolone NA SUCC 125 MG/2 ML VIAL ONE (00:02)
[2021-05-06 00:24] LABS: BASO % 0.8 % (0-2.0); EOS % 3.5 % (0-4.5); HEMATOCRIT 37.3 % (32.4-45.2); HEMOGLOBIN 12.4 GM/dL (10.7-15.3); LYMPH % 27.5 % (8-40); MCH 28.9 pg (25.7-33.7); MCHC 33.1 g/dl (32.0-36.0); MEAN CELL VOLUME 87.4 fl (80-96); MEAN PLT VOLUME 8.2 fl (7.5-11.1); MONO % 8.8 % (3.8-10.2); NEUT % 59.4 % (42.8-82.8); PLATELET COUNT 358 10^3/uL (134-434); RBC 4.27 M/mm3 (3.60-5.2); WHITE BLOOD COUNT 7.1 K/mm3 (4.0-10.0)
[2021-05-06] MEDS ORDERED: HYDROmorphone HCl 2 MG/ML VIAL ONE (00:31)
[2021-05-06] MEDS ORDERED: HYDROmorphone HCL CARPU-JECT 2 MG/1 ML DISP.SYRIN IVPUSH ONE (00:32)
[2021-05-06 00:47] LABS: ALBUMIN 3.7 g/dl (3.4-5.0); BLOOD UREA NITROGEN 23.5 mg/dL (7-18); CALCIUM 9.2 mg/dL (8.5-10.1)
[2021-05-06 00:50] LABS: CREATININE 1.2 mg/dL (0.55-1.3)
[2021-05-06 00:52] LABS: BILIRUBIN,TOTAL 0.4 mg/dL (0.2-1); TOT PROT 7.7 g/dl (6.4-8.2)
[2021-05-06] MEDS ORDERED: POLYETHYLENE GLYCOL (HEALTHYLAX) 3350 17 GM PACKET PO PRN (02:32)
[2021-05-06] MEDS ORDERED: KETOROLAC TROMETHAMINE 30 MG/1 ML VIAL IVPUSH ONE (04:48)
[2021-05-06 05:04] VITALS: BMI 40.4
[2021-05-06] MEDS: LIDOCAINE PATCH REMOVAL MC SCH ×2 (05:11→21:45)
[2021-05-06] MEDS: INSULIN SLIDING SCALE (NOVOLOG) 1 VIAL SQ SCH ×4 (06:13→22:35)
[2021-05-06] MEDS ORDERED: oxyCODONE HCL 5 MG TABLET PO PRN (08:59)
[2021-05-06] MEDS ORDERED: HYDROmorphone HCl 2 MG/ML VIAL IM PRN (09:02)
[2021-05-06] MEDS ORDERED: CYCLOBENZAPRINE HCL 5 MG TABLET PO SCH (10:00)
[2021-05-06] MEDS: FAMOTIDINE 20 MG TABLET PO SCH (10:31)
[2021-05-06] MEDS: VALSARTAN 160 MG TABLET PO SCH (10:31)
[2021-05-06] MEDS: MAGNESIUM OXIDE 400 MG TABLET (FP) PO SCH ×2 (10:31→21:43)
[2021-05-06] MEDS: METOPROLOL TARTRATE 25 MG TABLET (FP) PO SCH ×2 (10:31→21:43)
[2021-05-06] MEDS: DOCUSATE SODIUM 100 MG CAPSULE (FP) PO SCH ×2 (10:31→21:43)
[2021-05-06] MEDS ORDERED: TIZANIDINE HCL 4 MG TABLET PO PRN (12:51)
[2021-05-06] MEDS ORDERED: TAPENTADOL HCL 50 MG TAB.ER.12H PO SCH (13:00)
[2021-05-06] MEDS: TAPENTADOL HYDROCHLORIDE 50 MG TABLET PO SCH ×2 (14:45→17:13)
[2021-05-06] MEDS ORDERED: PANTOPRAZOLE 40 MG TABLET PO SCH (22:00)
[2021-05-06] MEDS ORDERED: ATORVASTATIN CA 10 MG TABLET (FP) PO SCH (22:00)
[2021-05-07] MEDS: TAPENTADOL HYDROCHLORIDE 50 MG TABLET PO SCH ×2 (00:06→05:39)
[2021-05-07] MEDS: INSULIN SLIDING SCALE (NOVOLOG) 1 VIAL SQ SCH (06:22)
[2021-05-07 09:33] VITALS: BP 148/77; PULSE 76; TEMP 97.2
[2021-05-07] MEDS: FAMOTIDINE 20 MG TABLET PO SCH (09:54)
[2021-05-07] MEDS: VALSARTAN 160 MG TABLET PO SCH (09:54)
[2021-05-07] MEDS: DOCUSATE SODIUM 100 MG CAPSULE (FP) PO SCH (09:54)
[2021-05-07] MEDS: MAGNESIUM OXIDE 400 MG TABLET (FP) PO SCH (09:55)
[2021-05-07] MEDS: METOPROLOL TARTRATE 25 MG TABLET (FP) PO SCH (09:55)
== END 2021-05-07 12:39 | disposition home or self-care (01) ==
LOC: JER 23:10 → UNDOADMOB 23:52 → JERBED 23:52 → INTOOBSV 23:52 → JERBED 05-06 02:34 → J8W 05-06 04:08 → JERBED 05-06 04:08
PROVIDERS: ADMIT Hospitalist; ATTEND Family Medicine
PROC: 3E033NZ Introduction of Analgesics, Hypnotics, Sedatives into Peripheral Vein, Percutaneous Approach (ICD-10-PCS; principal; 2021-05-06)
PROC: 3E013VG Introduction of Insulin into Subcutaneous Tissue, Percutaneous Approach (ICD-10-PCS; 2021-05-06)
PROC: 3E0333Z Introduction of Anti-inflammatory into Peripheral Vein, Percutaneous Approach (ICD-10-PCS; 2021-05-06)
PROC: 3E033GC Introduction of Other Therapeutic Substance into Peripheral Vein, Percutaneous Approach (ICD-10-PCS; 2021-05-06)
DX: M54.9 Dorsalgia, unspecified (principal); I48.91 Unspecified atrial fibrillation; K21.9 Gastro-esophageal reflux disease without esophagitis; E78.00 Pure hypercholesterolemia, unspecified; I10 Essential (primary) hypertension; T21.14XA Burn of first degree of lower back, initial encounter; Y63.5 Inappropriate temperature in local application and packing; Y92.89 Other specified places as the place of occurrence of the external cause; E66.01 Morbid (severe) obesity due to excess calories; Z68.41 Body mass index [BMI] 40.0-44.9, adult; Z96.653 Presence of artificial knee joint, bilateral; G89.29 Other chronic pain
CPT/HCPCS: 36415; 80053; 82962; 85025; 96372; 96374; 96375; 99285-25; C9803-CS; G0378; U0003; U0005

== ENCOUNTER 2021-05-14 04:13 | Inpatient (IN) | payer OTHER ==
[2021-05-12 11:34] VITALS: BMI 38.2
[2021-05-14] MEDS ORDERED: ACETAMINOPHEN INJECTION 100 ML IVPB ONE (08:20)
[2021-05-14] MEDS ORDERED: DEXMEDETOMIDINE HCL 200 MCG/2 ML IVPB ONE (08:21)
[2021-05-14] MEDS ORDERED: THROMBIN (BOVINE) 5,000 UNIT VIAL TP ONE (10:35)
[2021-05-14] MEDS ORDERED: VANCOMYCIN 1,000 MG VIAL (RESTRICTED TO ID ONLY) IVPB ONE (10:38)
[2021-05-14] MEDS ORDERED: BUPIVACAINE HCL/PF 0.5% (5MG/ML) 10 ML VIAL IJ ONE ×2 (10:40)
[2021-05-14] MEDS ORDERED: ONDANSETRON 4 MG/2 ML VIAL IVPUSH PRN (11:08)
[2021-05-14] MEDS ORDERED: D5-1/2NS+20 MEQ KCL - 1,000 ML IV SCH (11:15)
[2021-05-14] MEDS ORDERED: HYDROmorphone *PCA* 10MG/50ML DISP.SYRIN PCA PRN (12:00)
[2021-05-14] MEDS: diazePAM 5 MG TABLET PO SCH ×2 (13:57→21:31)
[2021-05-14] MEDS: D5-1/2NS+20 MEQ KCL - 20 MEQ/1,000 ML INFUS.BAG IV SCH (13:57)
[2021-05-14 14:23] LABS: HEMATOCRIT 35.3 % (32.4-45.2); HEMOGLOBIN 11.7 GM/dL (10.7-15.3); MCH 29.2 pg (25.7-33.7); MCHC 33.3 g/dl (32.0-36.0); MEAN CELL VOLUME 87.7 fl (80-96); MEAN PLT VOLUME 8.5 fl (7.5-11.1); PLATELET COUNT 231 10^3/uL (134-434); RBC 4.02 M/mm3 (3.60-5.2); WHITE BLOOD COUNT 7.4 K/mm3 (4.0-10.0)
[2021-05-14 14:45] LABS: CALCIUM 8.2 mg/dL (8.5-10.1)
[2021-05-14 14:46] LABS: BLOOD UREA NITROGEN 20.2 mg/dL (7-18)
[2021-05-14 14:49] LABS: CREATININE 0.9 mg/dL (0.55-1.3)
[2021-05-14] MEDS: DOCUSATE SODIUM 100 MG CAPSULE (FP) PO SCH ×2 (17:30→21:32)
[2021-05-14] MEDS ORDERED: ceFAZolin SODIUM 1 GM VIAL ONE (17:34)
[2021-05-14] MEDS ORDERED: DEXTROSE 5%-WATER 100 ML IVPB ONE (17:34)
[2021-05-14] MEDS: CEFAZOLIN 1 GM in DEXTROSE 5%-WATER 100 ML IVPB SCH (17:36)
[2021-05-14] MEDS: METOPROLOL TARTRATE 25 MG TABLET (FP) PO SCH (21:32)
[2021-05-14] MEDS: ATORVASTATIN CA 10 MG TABLET (FP) PO SCH (21:32)
[2021-05-14] MEDS: MAGNESIUM OXIDE 400 MG TABLET (FP) PO SCH (21:32)
[2021-05-15] MEDS ORDERED: DEXTROSE 5%-WATER 100 ML IVPB ONE ×2 (01:42→09:18)
[2021-05-15] MEDS ORDERED: ceFAZolin SODIUM 1 GM VIAL ONE ×4 (01:42→21:15)
[2021-05-15] MEDS: CEFAZOLIN 1 GM in DEXTROSE 5%-WATER 100 ML IVPB SCH ×2 (02:09→09:25)
[2021-05-15] MEDS: diazePAM 5 MG TABLET PO SCH ×3 (02:17→19:09)
[2021-05-15] MEDS: DOCUSATE SODIUM 100 MG CAPSULE (FP) PO SCH ×3 (06:29→22:52)
[2021-05-15] MEDS: ALLOPURINOL 100 MG TABLET (FP) PO SCH (09:25)
[2021-05-15] MEDS: FUROSEMIDE 20 MG TABLET (FP) PO SCH (09:26)
[2021-05-15] MEDS: PANTOPRAZOLE 40 MG TABLET PO SCH (09:26)
[2021-05-15] MEDS: VALSARTAN 160 MG TABLET PO SCH (09:26)
[2021-05-15] MEDS: METOPROLOL TARTRATE 25 MG TABLET (FP) PO SCH ×2 (09:26→22:52)
[2021-05-15] MEDS: MAGNESIUM OXIDE 400 MG TABLET (FP) PO SCH ×2 (09:26→23:17)
[2021-05-15] MEDS ORDERED: FAMOTIDINE 20 MG TABLET PO SCH (10:00)
[2021-05-15] MEDS: D5-1/2NS+20 MEQ KCL - 20 MEQ/1,000 ML INFUS.BAG IV SCH ×2 (11:22→15:30)
[2021-05-15] MEDS ORDERED: DEXTROSE 5%-WATER - 50 ML IVPB ONE ×2 (15:13→21:16)
[2021-05-15] MEDS: CEFAZOLIN 1 GM in DEXTROSE 5%-WATER - 1 GM/50 ML IVPB IVPB SCH ×2 (15:15→22:52)
[2021-05-15] MEDS: ATORVASTATIN CA 10 MG TABLET (FP) PO SCH (22:52)
[2021-05-16] MEDS ORDERED: ceFAZolin SODIUM 1 GM VIAL ONE ×3 (01:35→14:01)
[2021-05-16] MEDS ORDERED: DEXTROSE 5%-WATER - 50 ML IVPB ONE ×3 (01:36→14:01)
[2021-05-16] MEDS: CEFAZOLIN 1 GM in DEXTROSE 5%-WATER - 1 GM/50 ML IVPB IVPB SCH ×3 (02:23→14:03)
[2021-05-16] MEDS: diazePAM 5 MG TABLET PO SCH ×3 (03:23→18:43)
[2021-05-16] MEDS: DOCUSATE SODIUM 100 MG CAPSULE (FP) PO SCH ×3 (05:45→22:25)
[2021-05-16] MEDS: METOPROLOL TARTRATE 25 MG TABLET (FP) PO SCH ×2 (09:57→22:25)
[2021-05-16] MEDS: FUROSEMIDE 20 MG TABLET (FP) PO SCH (09:57)
[2021-05-16] MEDS: MAGNESIUM OXIDE 400 MG TABLET (FP) PO SCH ×2 (09:57→22:26)
[2021-05-16] MEDS: PANTOPRAZOLE 40 MG TABLET PO SCH (09:57)
[2021-05-16] MEDS: ALLOPURINOL 100 MG TABLET (FP) PO SCH (09:57)
[2021-05-16] MEDS: VALSARTAN 160 MG TABLET PO SCH (09:57)
[2021-05-16] MEDS: TAPENTADOL HYDROCHLORIDE 50 MG TABLET PO PRN (12:19)
[2021-05-16] MEDS: D5-1/2NS+20 MEQ KCL - 20 MEQ/1,000 ML INFUS.BAG IV SCH (12:23)
[2021-05-16] MEDS: oxyCODONE HCL 5 MG TABLET PO PRN (14:24)
[2021-05-16] MEDS: BISACODYL 10 MG SUPP.RECT RC PRN (19:10)
[2021-05-16] MEDS: ATORVASTATIN CA 10 MG TABLET (FP) PO SCH (22:25)
[2021-05-17] MEDS: oxyCODONE HCL 5 MG TABLET PO PRN (02:18)
[2021-05-17] MEDS: diazePAM 5 MG TABLET PO SCH ×3 (03:02→18:16)
[2021-05-17] MEDS: DOCUSATE SODIUM 100 MG CAPSULE (FP) PO SCH ×3 (05:39→21:32)
[2021-05-17 09:15] LABS: HEMATOCRIT 31.1 % (32.4-45.2); HEMOGLOBIN 10.5 GM/dL (10.7-15.3); MCH 29.7 pg (25.7-33.7); MCHC 33.9 g/dl (32.0-36.0); MEAN CELL VOLUME 87.6 fl (80-96); MEAN PLT VOLUME 8.7 fl (7.5-11.1); PLATELET COUNT 240 10^3/uL (134-434); RBC 3.55 M/mm3 (3.60-5.2); RDW 16.3 % (11.6-15.6); WHITE BLOOD COUNT 9.6 K/mm3 (4.0-10.0)
[2021-05-17 09:21] LABS: CALCIUM 8.1 mg/dL (8.5-10.1); IRON SERUM 19 ug/dL (50-175); TOTAL IRON BINDING CAPACITY 255 ug/dL (250-450)
[2021-05-17 09:22] LABS: BLOOD UREA NITROGEN 19.4 mg/dL (7-18)
[2021-05-17 09:25] LABS: CREATININE 0.8 mg/dL (0.55-1.3)
[2021-05-17 09:26] LABS: BILIRUBIN,TOTAL 0.8 mg/dL (0.2-1); TOT PROT 6.1 g/dl (6.4-8.2)
[2021-05-17 09:27] LABS: ALBUMIN 2.6 g/dl (3.4-5.0)
[2021-05-17] MEDS: FUROSEMIDE 20 MG TABLET (FP) PO SCH (09:29)
[2021-05-17] MEDS: PANTOPRAZOLE 40 MG TABLET PO SCH (09:29)
[2021-05-17] MEDS: MAGNESIUM OXIDE 400 MG TABLET (FP) PO SCH ×2 (09:29→21:32)
[2021-05-17] MEDS: VALSARTAN 160 MG TABLET PO SCH (09:29)
[2021-05-17] MEDS: ALLOPURINOL 100 MG TABLET (FP) PO SCH (09:29)
[2021-05-17] MEDS: METOPROLOL TARTRATE 25 MG TABLET (FP) PO SCH ×2 (09:29→21:32)
[2021-05-17] MEDS ORDERED: MAGNESIUM CITRATE 300 ML BOTTLE PO ONE (10:30)
[2021-05-17] MEDS ORDERED: IRON SUCROSE INJECTION 300 MG in SODIUM CHLORIDE 235 ML IVPB ONE (12:00)
[2021-05-17] MEDS: TAPENTADOL HYDROCHLORIDE 50 MG TABLET PO PRN ×2 (14:38→21:31)
[2021-05-17] MEDS: BISACODYL 10 MG SUPP.RECT RC PRN (18:16)
[2021-05-17] MEDS: ACETAMINOPHEN 325 MG TABLET (FP) PO PRN (18:40)
[2021-05-17 20:33] LABS: HEMATOCRIT 31.4 % (32.4-45.2); HEMOGLOBIN 10.3 GM/dL (10.7-15.3); MCHC 32.8 g/dl (32.0-36.0); MEAN CELL VOLUME 88.3 fl (80-96); MEAN PLT VOLUME 8.8 fl (7.5-11.1); PLATELET COUNT 268 10^3/uL (134-434); RBC 3.56 M/mm3 (3.60-5.2); RDW 16.3 % (11.6-15.6); WHITE BLOOD COUNT 10.4 K/mm3 (4.0-10.0)
[2021-05-17] MEDS: HEPARIN NA (PORCINE) 5,000 UNITS/ML 1ML VIAL SQ SCH (21:31)
[2021-05-17] MEDS: ATORVASTATIN CA 10 MG TABLET (FP) PO SCH (21:32)
[2021-05-18 02:02] LABS: EPI CELLS >36 /uL (0-25.1); HYALINE CASTS 5 /uL (0-3.1); URINE APPEARANCE CLEAR; URINE BACTERIA 3 /uL (0-1359); URINE BILIRUBIN NEGATIVE (NEGATIVE); URINE COLOR YELLOW; URINE GLUCOSE (UA) NEGATIVE (NEGATIVE); URINE KETONE TRACE (NEGATIVE); URINE LEUK ESTERASE TRACE (NEGATIVE); URINE NITRITE NEGATIVE (NEGATIVE); URINE PROTEIN NEGATIVE (NEGATIVE); URINE RBC 21 /uL (0-23.9); URINE UROBILINOGEN 0.2 mg/dL (0.2-1.0); URINE WBC 5 /uL (0-25.8)
[2021-05-18] MEDS: diazePAM 5 MG TABLET PO SCH ×3 (02:52→18:47)
[2021-05-18] MEDS: TAPENTADOL HYDROCHLORIDE 50 MG TABLET PO PRN ×2 (02:52→21:35)
[2021-05-18] MEDS: ACETAMINOPHEN 325 MG TABLET (FP) PO PRN (05:50)
[2021-05-18] MEDS: DOCUSATE SODIUM 100 MG CAPSULE (FP) PO SCH ×3 (05:50→21:35)
[2021-05-18] MEDS: MAGNESIUM OXIDE 400 MG TABLET (FP) PO SCH ×2 (09:08→21:35)
[2021-05-18] MEDS: FUROSEMIDE 20 MG TABLET (FP) PO SCH (09:08)
[2021-05-18] MEDS: PANTOPRAZOLE 40 MG TABLET PO SCH (09:08)
[2021-05-18] MEDS: HEPARIN NA (PORCINE) 5,000 UNITS/ML 1ML VIAL SQ SCH ×2 (09:08→21:35)
[2021-05-18] MEDS: METOPROLOL TARTRATE 25 MG TABLET (FP) PO SCH ×2 (09:08→21:35)
[2021-05-18] MEDS: ALLOPURINOL 100 MG TABLET (FP) PO SCH (09:08)
[2021-05-18] MEDS: VALSARTAN 160 MG TABLET PO SCH (09:08)
[2021-05-18] MEDS ORDERED: MAGNESIUM HYDROX 2400MG/30ML ORAL SUSPENSION 30 ML CUP PO ONE (10:15)
[2021-05-18] MEDS: oxyCODONE HCL 5 MG TABLET PO PRN (13:31)
[2021-05-18] MEDS ORDERED: SODIUM PHOSPHATE/NA BIPHOS 133 ML ENEMA PR PRN (19:12)
[2021-05-18] MEDS: ATORVASTATIN CA 10 MG TABLET (FP) PO SCH (21:35)
[2021-05-19] MEDS: TAPENTADOL HYDROCHLORIDE 50 MG TABLET PO PRN ×3 (02:34→21:42)
[2021-05-19] MEDS: BISACODYL 10 MG SUPP.RECT RC PRN (02:35)
[2021-05-19] MEDS: diazePAM 5 MG TABLET PO SCH ×3 (02:35→18:23)
[2021-05-19] MEDS: DOCUSATE SODIUM 100 MG CAPSULE (FP) PO SCH ×3 (05:17→21:43)
[2021-05-19 09:13] LABS: CALCIUM 8.4 mg/dL (8.5-10.1)
[2021-05-19 09:14] LABS: ALBUMIN 2.5 g/dl (3.4-5.0); BLOOD UREA NITROGEN 20.5 mg/dL (7-18); MAGNESIUM 2.6 mg/dL (1.8-2.4)
[2021-05-19 09:17] LABS: CREATININE 0.9 mg/dL (0.55-1.3)
[2021-05-19 09:19] LABS: BILIRUBIN,TOTAL 0.7 mg/dL (0.2-1); TOT PROT 6.2 g/dl (6.4-8.2)
[2021-05-19] MEDS: ALLOPURINOL 100 MG TABLET (FP) PO SCH (09:31)
[2021-05-19] MEDS: METOPROLOL TARTRATE 25 MG TABLET (FP) PO SCH ×2 (09:31→21:43)
[2021-05-19] MEDS: HEPARIN NA (PORCINE) 5,000 UNITS/ML 1ML VIAL SQ SCH ×2 (09:32→21:43)
[2021-05-19] MEDS: PANTOPRAZOLE 40 MG TABLET PO SCH (09:32)
[2021-05-19] MEDS: FUROSEMIDE 20 MG TABLET (FP) PO SCH (09:32)
[2021-05-19] MEDS: VALSARTAN 160 MG TABLET PO SCH (09:32)
[2021-05-19] MEDS: MAGNESIUM OXIDE 400 MG TABLET (FP) PO SCH ×2 (09:32→21:43)
[2021-05-19 09:33] LABS: BASO % 0.1 % (0-2.0); EOS % 2.8 % (0-4.5); HEMATOCRIT 29.3 % (32.4-45.2); HEMOGLOBIN 9.8 GM/dL (10.7-15.3); LYMPH % 18.3 % (8-40); MCH 29.3 pg (25.7-33.7); MCHC 33.4 g/dl (32.0-36.0); MEAN CELL VOLUME 87.9 fl (80-96); NEUT % 68.8 % (42.8-82.8); PLATELET COUNT 320 10^3/uL (134-434); RBC 3.33 M/mm3 (3.60-5.2); RDW 16.3 % (11.6-15.6); WHITE BLOOD COUNT 8.5 K/mm3 (4.0-10.0)
[2021-05-19] MEDS ORDERED: IRON SUCROSE INJECTION 300 MG in SODIUM CHLORIDE 235 ML IVPB ONE (11:00)
[2021-05-19] MEDS: Methylnaltrexone Bromide 12 MG/0.6 ML KIT SQ SCH (14:35)
[2021-05-19] MEDS: FAMOTIDINE 40 MG TABLET PO SCH (14:39)
[2021-05-19] MEDS: ATORVASTATIN CA 10 MG TABLET (FP) PO SCH (21:43)
[2021-05-20] MEDS: diazePAM 5 MG TABLET PO SCH ×2 (03:48→12:32)
[2021-05-20] MEDS: TAPENTADOL HYDROCHLORIDE 50 MG TABLET PO PRN (03:49)
[2021-05-20] MEDS: DOCUSATE SODIUM 100 MG CAPSULE (FP) PO SCH (05:11)
[2021-05-20] MEDS: ACETAMINOPHEN 325 MG TABLET (FP) PO PRN (05:54)
[2021-05-20] MEDS: FUROSEMIDE 20 MG TABLET (FP) PO SCH (09:58)
[2021-05-20] MEDS: FAMOTIDINE 40 MG TABLET PO SCH (09:58)
[2021-05-20] MEDS: PANTOPRAZOLE 40 MG TABLET PO SCH (09:58)
[2021-05-20] MEDS: ALLOPURINOL 100 MG TABLET (FP) PO SCH (09:58)
[2021-05-20] MEDS: METOPROLOL TARTRATE 25 MG TABLET (FP) PO SCH (09:58)
[2021-05-20] MEDS: MAGNESIUM OXIDE 400 MG TABLET (FP) PO SCH (09:58)
[2021-05-20] MEDS: VALSARTAN 160 MG TABLET PO SCH (09:58)
[2021-05-20] MEDS ORDERED: APIXABAN 5 MG TABLET PO SCH (10:00)
[2021-05-20 11:28] VITALS: PULSE 82
[2021-05-20] MEDS: oxyCODONE HCL 5 MG TABLET PO PRN (13:32)
[2021-05-20] MEDS: Methylnaltrexone Bromide 12 MG/0.6 ML KIT SQ SCH (13:35)
[2021-05-20] MEDS ORDERED: POLYETHYLENE GLYCOL (HEALTHYLAX) 3350 17 GM PACKET PO SCH (14:00)
[2021-05-20 14:45] VITALS: BP 144/79; TEMP 97.8
[2021-05-20 16:09] LABS: SARS-CoV-2 NAA Not Detected (Not Detected)
== END 2021-05-20 17:22 | DRG 460 ==
LOC: J2C 04:13 → J8W 13:50
PROVIDERS: ADMIT Neurological Surgery; ATTEND Neurological Surgery
PROC: 01NB0ZZ Release Lumbar Nerve, Open Approach (ICD-10-PCS; 2021-05-14)
PROC: 00NY0ZZ Release Lumbar Spinal Cord, Open Approach (ICD-10-PCS; 2021-05-14)
PROC: 0SG3071 Fusion of Lumbosacral Joint with Autologous Tissue Substitute, Posterior Approach, Posterior Column, Open Approach (ICD-10-PCS; 2021-05-14)
PROC: 01NR0ZZ Release Sacral Nerve, Open Approach (ICD-10-PCS; 2021-05-14)
PROC: 0SG0071 Fusion of Lumbar Vertebral Joint with Autologous Tissue Substitute, Posterior Approach, Posterior Column, Open Approach (ICD-10-PCS; principal; 2021-05-14 08:00)
DX: M48.061 Spinal stenosis, lumbar region without neurogenic claudication (principal); F11.20 Opioid dependence, uncomplicated; M48.07 Spinal stenosis, lumbosacral region; M54.17 Radiculopathy, lumbosacral region; M54.16 Radiculopathy, lumbar region; I48.91 Unspecified atrial fibrillation; K21.9 Gastro-esophageal reflux disease without esophagitis; I10 Essential (primary) hypertension; K59.03 Drug induced constipation; T40.2X5A Adverse effect of other opioids, initial encounter; E78.5 Hyperlipidemia, unspecified; E11.9 Type 2 diabetes mellitus without complications; E66.9 Obesity, unspecified; Z68.38 Body mass index [BMI] 38.0-38.9, adult; M51.24 Other intervertebral disc displacement, thoracic region; K57.90 Diverticulosis of intestine, part unspecified, without perforation or abscess without bleeding; K44.9 Diaphragmatic hernia without obstruction or gangrene; M19.90 Unspecified osteoarthritis, unspecified site; R50.82 Postprocedural fever; Z96.653 Presence of artificial knee joint, bilateral
CPT/HCPCS: 36415; 71045-TC-FY; 72100-TC-FY; 74018-TC-FY; 80048; 80051; 80053; 81003; 82540; 83540; 83550; 83735; 85025; 85027; 86850; 86900; 86901; 87040; 87086; 94010; 94760; 97116-GP; 97161-GP; C9803-CS; J1644; J1756; U0003; U0005

== ENCOUNTER 2021-08-03 04:05 | Inpatient (IN) | payer OTHER ==
[2021-08-03] MEDS ORDERED: LIDOCAINE 5% TOPICAL PATCH TP ONE (04:20)
[2021-08-03] MEDS ORDERED: KETOROLAC TROMETHAMINE 15 MG/ML VIAL IM ONE (04:20)
[2021-08-03] MEDS ORDERED: KETOROLAC TROMETHAMINE 15 MG/ML VIAL ONE (04:25)
[2021-08-03] MEDS ORDERED: LIDOCAINE 5% TOPICAL PATCH ONE (04:25)
[2021-08-03] MEDS ORDERED: ONDANSETRON 4 MG/2 ML VIAL IVPB ONE (05:58)
[2021-08-03] MEDS ORDERED: morphine SULFATE 4 MG/ML VIAL IVPUSH ONE (05:59)
[2021-08-03] MEDS ORDERED: ONDANSETRON 4 MG/2 ML VIAL ONE (06:01)
[2021-08-03] MEDS ORDERED: morphine SULFATE 4 MG/ML VIAL ONE (06:01)
[2021-08-03 06:18] LABS: BASO % 0.5 % (0-2.0); EOS % 2.1 % (0-4.5); HEMOGLOBIN 12.6 GM/dL (10.7-15.3); LYMPH % 15.9 % (8-40); MCH 29.3 pg (25.7-33.7); MCHC 33.2 g/dl (32.0-36.0); MEAN CELL VOLUME 88.2 fl (80-96); MEAN PLT VOLUME 8.8 fl (7.5-11.1); MONO % 8.7 % (3.8-10.2); NEUT % 72.8 % (42.8-82.8); PLATELET COUNT 319 10^3/uL (134-434); RBC 4.31 M/mm3 (3.60-5.2); RDW 15.6 % (11.6-15.6); WHITE BLOOD COUNT 10.6 K/mm3 (4.0-10.0)
[2021-08-03 06:24] LABS: EPI CELLS >36 /uL (0-25.1); HYALINE CASTS 3 /uL (0-3.1); PH,URINE 5.5 (5.0-8.0); URINE APPEARANCE CLEAR; URINE BACTERIA 67 /uL (0-1359); URINE BILIRUBIN NEGATIVE (NEGATIVE); URINE COLOR YELLOW; URINE GLUCOSE (UA) NEGATIVE (NEGATIVE); URINE KETONE NEGATIVE (NEGATIVE); URINE LEUK ESTERASE NEGATIVE (NEGATIVE); URINE NITRITE NEGATIVE (NEGATIVE); URINE PROTEIN TRACE (NEGATIVE); URINE RBC 6 /uL (0-23.9); URINE UROBILINOGEN 0.2 mg/dL (0.2-1.0); URINE WBC 11 /uL (0-25.8)
[2021-08-03 06:39] LABS: ALBUMIN 3.9 g/dl (3.4-5.0); CALCIUM 9.3 mg/dL (8.5-10.1)
[2021-08-03 06:40] LABS: BLOOD UREA NITROGEN 31.4 mg/dL (7-18)
[2021-08-03 06:42] LABS: CREATININE 1.2 mg/dL (0.55-1.3)
[2021-08-03 06:44] LABS: BILIRUBIN,TOTAL 0.3 mg/dL (0.2-1); TOT PROT 7.6 g/dl (6.4-8.2)
[2021-08-03] MEDS ORDERED: PIPERACILLIN/TAZOB 4.5 GM 4.5 GM in DEXTROSE 5%-WATER 100 ML IVPB ONE (10:13)
[2021-08-03] MEDS ORDERED: VANCOMYCIN 1 GM in D5W (PRE-DOCKED) 1,000 MG/250 ML IVPB ONE (10:13)
[2021-08-03] MEDS ORDERED: GABAPENTIN 100 MG CAPSULE PO ONE (10:25)
[2021-08-03] MEDS ORDERED: ACETAMINOPHEN 325 MG TABLET (FP) ONE (10:52)
[2021-08-03] MEDS ORDERED: PIPERACILLIN/TAZOB 4.5 GM 4.5 GM/100 ML BAG IVPB ONE (10:52)
[2021-08-03] MEDS ORDERED: VANCOMYCIN 1 GRAM (PRE-DOCKED) 1,000 MG/250 ML BAG IVPB ONE (10:53)
[2021-08-03] MEDS ORDERED: GABAPENTIN 100 MG CAPSULE ONE (10:54)
[2021-08-03] MEDS: ACETAMINOPHEN 325 MG TABLET (FP) PO PRN ×2 (11:00→17:27)
[2021-08-03] MEDS ORDERED: ALBUTEROL SO4 2.5/IPRATROPIUM 0.5 INH SOL 3 ML VIAL.NEB. NEB ONE ×2 (13:21→13:54)
[2021-08-03] MEDS ORDERED: LIDOCAINE PATCH REMOVAL MC ONE (17:00)
[2021-08-03 18:29] VITALS: BMI 38.9
[2021-08-03] MEDS: TAPENTADOL HYDROCHLORIDE 50 MG TABLET PO PRN (20:57)
[2021-08-03] MEDS: ATORVASTATIN CA 10 MG TABLET (FP) PO SCH (22:16)
[2021-08-03] MEDS: APIXABAN 5 MG TABLET PO SCH (22:16)
[2021-08-03] MEDS: MAGNESIUM OXIDE 400 MG TABLET (FP) PO SCH (22:16)
[2021-08-03] MEDS: METOPROLOL TARTRATE 25 MG TABLET (FP) PO SCH (22:16)
[2021-08-03] MEDS ORDERED: METOCLOPRAMIDE HCL INJECTION 10 MG/2 ML VIAL IVPB ONE (22:37)
[2021-08-04] MEDS ORDERED: oxyCODONE HCL 5 MG TABLET PO ONE (02:16)
[2021-08-04] MEDS: ACETAMINOPHEN 325 MG TABLET (FP) PO PRN ×4 (02:25→19:15)
[2021-08-04 07:11] LABS: HEMATOCRIT 36.2 % (32.4-45.2); MCH 29.4 pg (25.7-33.7); MCHC 33.1 g/dl (32.0-36.0); MEAN CELL VOLUME 88.9 fl (80-96); MEAN PLT VOLUME 8.3 fl (7.5-11.1); PLATELET COUNT 321 10^3/uL (134-434); RBC 4.07 M/mm3 (3.60-5.2); RDW 15.7 % (11.6-15.6); WHITE BLOOD COUNT 8.5 K/mm3 (4.0-10.0)
[2021-08-04] MEDS: FAMOTIDINE 20 MG TABLET PO SCH (10:18)
[2021-08-04] MEDS: FUROSEMIDE 20 MG TABLET (FP) PO SCH (10:18)
[2021-08-04] MEDS: METOPROLOL TARTRATE 25 MG TABLET (FP) PO SCH ×2 (10:18→21:46)
[2021-08-04] MEDS: MAGNESIUM OXIDE 400 MG TABLET (FP) PO SCH ×2 (10:18→21:46)
[2021-08-04] MEDS: APIXABAN 5 MG TABLET PO SCH ×2 (10:18→21:45)
[2021-08-04] MEDS: VALSARTAN 160 MG TABLET PO SCH (10:19)
[2021-08-04] MEDS: ALLOPURINOL 100 MG TABLET (FP) PO SCH (10:19)
[2021-08-04] MEDS: TAPENTADOL HYDROCHLORIDE 50 MG TABLET PO PRN ×3 (10:21→23:29)
[2021-08-04] MEDS: Methylnaltrexone Bromide 12 MG/0.6 ML KIT SQ SCH (10:25)
[2021-08-04] MEDS: GABAPENTIN 100 MG CAPSULE PO SCH ×2 (13:56→21:46)
[2021-08-04] MEDS: DOCUSATE SODIUM 100 MG CAPSULE (FP) PO SCH (21:45)
[2021-08-04] MEDS: ATORVASTATIN CA 10 MG TABLET (FP) PO SCH (21:46)
[2021-08-05] MEDS: TAPENTADOL HYDROCHLORIDE 50 MG TABLET PO PRN ×3 (03:26→20:09)
[2021-08-05] MEDS: ACETAMINOPHEN 325 MG TABLET (FP) PO PRN (05:30)
[2021-08-05] MEDS: GABAPENTIN 100 MG CAPSULE PO SCH ×3 (06:05→21:14)
[2021-08-05] MEDS: VALSARTAN 160 MG TABLET PO SCH ×2 (09:43→21:35)
[2021-08-05] MEDS: FUROSEMIDE 20 MG TABLET (FP) PO SCH (09:43)
[2021-08-05] MEDS: APIXABAN 5 MG TABLET PO SCH ×2 (09:43→21:14)
[2021-08-05] MEDS: FAMOTIDINE 20 MG TABLET PO SCH (09:43)
[2021-08-05] MEDS: MAGNESIUM OXIDE 400 MG TABLET (FP) PO SCH ×2 (09:43→21:14)
[2021-08-05] MEDS: METOPROLOL TARTRATE 25 MG TABLET (FP) PO SCH ×2 (09:43→21:14)
[2021-08-05] MEDS: ALLOPURINOL 100 MG TABLET (FP) PO SCH (09:44)
[2021-08-05] MEDS: Methylnaltrexone Bromide 12 MG/0.6 ML KIT SQ SCH (11:57)
[2021-08-05] MEDS: DOCUSATE SODIUM 100 MG CAPSULE (FP) PO SCH (21:14)
[2021-08-05] MEDS: ATORVASTATIN CA 10 MG TABLET (FP) PO SCH (21:14)
[2021-08-06] MEDS: TAPENTADOL HYDROCHLORIDE 50 MG TABLET PO PRN ×2 (00:44→20:10)
[2021-08-06] MEDS: GABAPENTIN 100 MG CAPSULE PO SCH ×3 (05:20→21:21)
[2021-08-06] MEDS: MAGNESIUM OXIDE 400 MG TABLET (FP) PO SCH ×2 (10:11→21:23)
[2021-08-06] MEDS: FAMOTIDINE 20 MG TABLET PO SCH (10:11)
[2021-08-06] MEDS: FUROSEMIDE 20 MG TABLET (FP) PO SCH (10:11)
[2021-08-06] MEDS: ALLOPURINOL 100 MG TABLET (FP) PO SCH (10:11)
[2021-08-06] MEDS: METOPROLOL TARTRATE 25 MG TABLET (FP) PO SCH ×2 (10:11→21:23)
[2021-08-06] MEDS: APIXABAN 5 MG TABLET PO SCH ×2 (10:12→21:23)
[2021-08-06] MEDS: VALSARTAN 160 MG TABLET PO SCH ×2 (10:12→21:21)
[2021-08-06] MEDS: Methylnaltrexone Bromide 12 MG/0.6 ML KIT SQ SCH (12:23)
[2021-08-06] MEDS: DOCUSATE SODIUM 100 MG CAPSULE (FP) PO SCH (21:21)
[2021-08-06] MEDS: ATORVASTATIN CA 10 MG TABLET (FP) PO SCH (21:22)
[2021-08-06] MEDS: ACETAMINOPHEN 325 MG TABLET (FP) PO PRN (21:23)
[2021-08-06] MEDS ORDERED: oxyCODONE HCL 5 MG TABLET PO ONE (21:23)
[2021-08-07] MEDS: KETOROLAC TROMETHAMINE 30 MG/1 ML VIAL IVPUSH PRN ×2 (01:41→08:10)
[2021-08-07] MEDS: TAPENTADOL HYDROCHLORIDE 50 MG TABLET PO PRN ×2 (02:37→09:23)
[2021-08-07] MEDS: GABAPENTIN 100 MG CAPSULE PO SCH ×3 (06:28→22:03)
[2021-08-07] MEDS: ACETAMINOPHEN 325 MG TABLET (FP) PO PRN ×2 (06:28→17:12)
[2021-08-07] MEDS ORDERED: oxyCODONE HCL 5 MG TABLET PO ONE ×2 (09:14→20:07)
[2021-08-07] MEDS: METOPROLOL TARTRATE 25 MG TABLET (FP) PO SCH ×2 (09:16→22:03)
[2021-08-07] MEDS: MAGNESIUM OXIDE 400 MG TABLET (FP) PO SCH ×2 (09:16→22:03)
[2021-08-07] MEDS: VALSARTAN 160 MG TABLET PO SCH ×2 (09:17→22:04)
[2021-08-07] MEDS: ALLOPURINOL 100 MG TABLET (FP) PO SCH (09:17)
[2021-08-07] MEDS: APIXABAN 5 MG TABLET PO SCH ×2 (09:17→22:03)
[2021-08-07] MEDS: FUROSEMIDE 20 MG TABLET (FP) PO SCH (09:17)
[2021-08-07] MEDS: FAMOTIDINE 20 MG TABLET PO SCH (09:17)
[2021-08-07] MEDS ORDERED: TAPENTADOL HYDROCHLORIDE 50 MG TABLET PO PRN (09:49)
[2021-08-07] MEDS: Methylnaltrexone Bromide 12 MG/0.6 ML KIT SQ SCH (14:49)
[2021-08-07] MEDS: ATORVASTATIN CA 10 MG TABLET (FP) PO SCH (22:04)
[2021-08-07] MEDS: DOCUSATE SODIUM 100 MG CAPSULE (FP) PO SCH (22:04)
[2021-08-08] MEDS: GABAPENTIN 100 MG CAPSULE PO SCH (06:28)
[2021-08-08] MEDS: APIXABAN 5 MG TABLET PO SCH (09:00)
[2021-08-08] MEDS: ALLOPURINOL 100 MG TABLET (FP) PO SCH (09:00)
[2021-08-08] MEDS: VALSARTAN 160 MG TABLET PO SCH (09:00)
[2021-08-08] MEDS: FAMOTIDINE 20 MG TABLET PO SCH (09:00)
[2021-08-08] MEDS: MAGNESIUM OXIDE 400 MG TABLET (FP) PO SCH (09:00)
[2021-08-08] MEDS: FUROSEMIDE 20 MG TABLET (FP) PO SCH (09:00)
[2021-08-08] MEDS: METOPROLOL TARTRATE 25 MG TABLET (FP) PO SCH (09:00)
[2021-08-08] MEDS: Methylnaltrexone Bromide 12 MG/0.6 ML KIT SQ SCH (09:37)
[2021-08-08 11:38] VITALS: BP 151/91; PULSE 79; TEMP 98.1
== END 2021-08-08 12:36 | disposition home or self-care (01) | DRG 948 ==
LOC: JER 04:05 → JERBED 07:05 → J7W 17:01
PROVIDERS: ADMIT Family Medicine; ATTEND Family Medicine
DX: G89.18 Other acute postprocedural pain (principal); I48.92 Unspecified atrial flutter; I10 Essential (primary) hypertension; E78.5 Hyperlipidemia, unspecified; I48.91 Unspecified atrial fibrillation; Z79.01 Long term (current) use of anticoagulants; K21.9 Gastro-esophageal reflux disease without esophagitis; Z86.16 Personal history of COVID-19; R51.9 Headache, unspecified; K59.00 Constipation, unspecified; M54.9 Dorsalgia, unspecified; M54.6 Pain in thoracic spine
CPT/HCPCS: 0241U-QW; 36415; 70470-TC; 70546-TC; 70553-TC; 71045-TC-FY; 72131-TC; 72158-TC; 74176-TC; 80053; 81003; 84443; 85025; 85027; 85651; 86140; 87086; 93005; 93010; 99285-25; Q9967

== ENCOUNTER 2021-08-13 23:36 | Observation (INO) | payer OTHER ==
[2021-08-14] MEDS ORDERED: HYDROmorphone HCL CARPU-JECT 2 MG/1 ML DISP.SYRIN IVPUSH ONE ×2 (00:07→01:52)
[2021-08-14] MEDS ORDERED: ONDANSETRON 4 MG/2 ML VIAL IVPUSH ONE (00:14)
[2021-08-14] MEDS ORDERED: HYDROmorphone HCl 2 MG/ML VIAL ONE (00:19)
[2021-08-14] MEDS ORDERED: ONDANSETRON 4 MG/2 ML VIAL ONE (00:19)
[2021-08-14 01:16] LABS: BASO % 0.5 % (0-2.0); EOS % 1.2 % (0-4.5); HEMATOCRIT 39.5 % (32.4-45.2); HEMOGLOBIN 12.8 GM/dL (10.7-15.3); LYMPH % 17.4 % (8-40); MCH 28.8 pg (25.7-33.7); MCHC 32.5 g/dl (32.0-36.0); MEAN CELL VOLUME 88.4 fl (80-96); MEAN PLT VOLUME 8.7 fl (7.5-11.1); MONO % 6.6 % (3.8-10.2); NEUT % 74.3 % (42.8-82.8); PLATELET COUNT 372 10^3/uL (134-434); RBC 4.46 M/mm3 (3.60-5.2); RDW 15.7 % (11.6-15.6); WHITE BLOOD COUNT 11.5 K/mm3 (4.0-10.0)
[2021-08-14 01:57] LABS: ALBUMIN 4.1 g/dl (3.4-5.0)
[2021-08-14 02:01] LABS: TOT PROT 8.1 g/dl (6.4-8.2)
[2021-08-14 02:02] LABS: BILIRUBIN,TOTAL 0.3 mg/dL (0.2-1)
[2021-08-14] MEDS ORDERED: POLYETHYLENE GLYCOL (HEALTHYLAX) 3350 17 GM PACKET PO PRN (05:28)
[2021-08-14] MEDS ORDERED: ONDANSETRON 4 MG/2 ML VIAL IVPUSH PRN (05:28)
[2021-08-14] MEDS ORDERED: DOCUSATE SODIUM 100 MG CAPSULE (FP) PO PRN (05:28)
[2021-08-14] MEDS ORDERED: ACETAMINOPHEN 1000 MG/100 ML BAG IVPB PRN (05:35)
[2021-08-14] MEDS ORDERED: TIZANIDINE HCL 2 MG TABLET PO PRN (06:17)
[2021-08-14] MEDS ORDERED: TAPENTADOL HYDROCHLORIDE 75 MG TABLET PO PRN (06:21)
[2021-08-14] MEDS ORDERED: KETOROLAC TROMETHAMINE 15 MG/ML VIAL ONE (07:48)
[2021-08-14] MEDS: KETOROLAC TROMETHAMINE 15 MG/ML VIAL IVPUSH PRN ×2 (07:59→22:07)
[2021-08-14] MEDS ORDERED: TAPENTADOL HYDROCHLORIDE 75 MG TABLET PO SCH (09:00)
[2021-08-14] MEDS ORDERED: METOPROLOL TARTRATE 25 MG TABLET (FP) ONE (09:52)
[2021-08-14] MEDS ORDERED: APIXABAN 5 MG TABLET ONE (09:52)
[2021-08-14] MEDS ORDERED: FUROSEMIDE 20 MG TABLET (FP) ONE (09:53)
[2021-08-14] MEDS ORDERED: VALSARTAN 80 MG TABLET ONE (09:53)
[2021-08-14] MEDS ORDERED: FAMOTIDINE 20 MG TABLET ONE (09:53)
[2021-08-14] MEDS ORDERED: MAGNESIUM OXIDE 400 MG TABLET (FP) ONE (09:53)
[2021-08-14] MEDS ORDERED: LOSARTAN POTASSIUM 50 MG TABLET PO SCH (10:00)
[2021-08-14] MEDS ORDERED: ACETAMINOPHEN INJECTION 100 ML IVPB ONE (10:22)
[2021-08-14] MEDS: METOPROLOL TARTRATE 25 MG TABLET (FP) PO SCH ×2 (10:30→22:04)
[2021-08-14] MEDS: ALLOPURINOL 100 MG TABLET (FP) PO SCH (10:30)
[2021-08-14] MEDS: VALSARTAN 160 MG TABLET PO SCH ×2 (10:30→22:03)
[2021-08-14] MEDS: MAGNESIUM OXIDE 400 MG TABLET (FP) PO SCH ×2 (10:30→22:03)
[2021-08-14] MEDS: FAMOTIDINE 40 MG TABLET PO SCH (10:30)
[2021-08-14] MEDS: FUROSEMIDE 20 MG TABLET (FP) PO SCH (10:30)
[2021-08-14] MEDS: APIXABAN 5 MG TABLET PO SCH ×2 (10:30→22:04)
[2021-08-14] MEDS: Methylnaltrexone Bromide 12 MG/0.6 ML KIT SQ SCH (11:00)
[2021-08-14] MEDS ORDERED: TAPENTADOL HYDROCHLORIDE 50 MG TABLET PO ONE (11:22)
[2021-08-14] MEDS: TAPENTADOL HYDROCHLORIDE 50 MG TABLET PO SCH ×3 (11:30→23:01)
[2021-08-14 13:44] VITALS: BMI 38.1
[2021-08-14] MEDS ORDERED: FLU VACC QS2021-22(6MOS UP)/PF 60 MCG/0.5 ML SYRINGE IM ONE (13:44)
[2021-08-14] MEDS: ATORVASTATIN CA 10 MG TABLET (FP) PO SCH (22:03)
[2021-08-14] MEDS: DOCUSATE SODIUM 100 MG CAPSULE (FP) PO SCH (22:04)
[2021-08-15] MEDS: TAPENTADOL HYDROCHLORIDE 50 MG TABLET PO SCH ×4 (03:55→21:15)
[2021-08-15 07:49] LABS: BASO % 0.5 % (0-2.0); EOS % 1.9 % (0-4.5); HEMATOCRIT 34.6 % (32.4-45.2); HEMOGLOBIN 11.4 GM/dL (10.7-15.3); LYMPH % 14.9 % (8-40); MCH 29.3 pg (25.7-33.7); MEAN CELL VOLUME 88.9 fl (80-96); MEAN PLT VOLUME 8.4 fl (7.5-11.1); MONO % 6.4 % (3.8-10.2); NEUT % 76.3 % (42.8-82.8); PLATELET COUNT 294 10^3/uL (134-434); RBC 3.89 M/mm3 (3.60-5.2); RDW 15.8 % (11.6-15.6); WHITE BLOOD COUNT 9.1 K/mm3 (4.0-10.0)
[2021-08-15 08:16] LABS: BLOOD UREA NITROGEN 54.3 mg/dL (7-18); CALCIUM 8.5 mg/dL (8.5-10.1); MAGNESIUM 2.4 mg/dL (1.8-2.4)
[2021-08-15 08:18] LABS: CREATININE 1.1 mg/dL (0.55-1.3)
[2021-08-15] MEDS: MAGNESIUM OXIDE 400 MG TABLET (FP) PO SCH ×2 (09:34→21:16)
[2021-08-15] MEDS: VALSARTAN 160 MG TABLET PO SCH ×2 (09:34→21:16)
[2021-08-15] MEDS: FUROSEMIDE 20 MG TABLET (FP) PO SCH (09:35)
[2021-08-15] MEDS: APIXABAN 5 MG TABLET PO SCH ×2 (09:35→21:16)
[2021-08-15] MEDS: ALLOPURINOL 100 MG TABLET (FP) PO SCH (09:35)
[2021-08-15] MEDS: METOPROLOL TARTRATE 25 MG TABLET (FP) PO SCH ×2 (09:35→21:16)
[2021-08-15] MEDS: FAMOTIDINE 40 MG TABLET PO SCH (09:37)
[2021-08-15] MEDS: Methylnaltrexone Bromide 12 MG/0.6 ML KIT SQ SCH (12:21)
[2021-08-15] MEDS: ACETAMINOPHEN 325 MG TABLET (FP) PO PRN (19:56)
[2021-08-15] MEDS: ATORVASTATIN CA 10 MG TABLET (FP) PO SCH (21:16)
[2021-08-15] MEDS: DOCUSATE SODIUM 100 MG CAPSULE (FP) PO SCH (21:16)
[2021-08-15] MEDS: KETOROLAC TROMETHAMINE 15 MG/ML VIAL IVPUSH PRN (23:39)
[2021-08-16 02:45] VITALS: TEMP 98.1
[2021-08-16] MEDS: ACETAMINOPHEN 325 MG TABLET (FP) PO PRN (03:01)
[2021-08-16] MEDS: TAPENTADOL HYDROCHLORIDE 50 MG TABLET PO SCH ×2 (04:20→10:17)
[2021-08-16] MEDS: ALLOPURINOL 100 MG TABLET (FP) PO SCH (10:18)
[2021-08-16] MEDS: METOPROLOL TARTRATE 25 MG TABLET (FP) PO SCH (10:18)
[2021-08-16] MEDS: APIXABAN 5 MG TABLET PO SCH (10:18)
[2021-08-16] MEDS: MAGNESIUM OXIDE 400 MG TABLET (FP) PO SCH (10:18)
[2021-08-16] MEDS: FUROSEMIDE 20 MG TABLET (FP) PO SCH (10:19)
[2021-08-16] MEDS: VALSARTAN 160 MG TABLET PO SCH (10:19)
[2021-08-16] MEDS: FAMOTIDINE 40 MG TABLET PO SCH (10:19)
[2021-08-16 11:57] VITALS: BP 136/75; PULSE 76
[2021-08-16] MEDS: Methylnaltrexone Bromide 12 MG/0.6 ML KIT SQ SCH (12:10)
== END 2021-08-16 16:11 | disposition home or self-care (01) ==
LOC: JER 23:36 → JERBED 08-14 04:31 → J4W 08-14 13:50
PROVIDERS: ADMIT Hospitalist; ATTEND Family Medicine
PROC: 3E033NZ Introduction of Analgesics, Hypnotics, Sedatives into Peripheral Vein, Percutaneous Approach (ICD-10-PCS; principal; 2021-08-14)
PROC: 3E033NZ Introduction of Analgesics, Hypnotics, Sedatives into Peripheral Vein, Percutaneous Approach (ICD-10-PCS; 2021-08-14)
PROC: 3E0333Z Introduction of Anti-inflammatory into Peripheral Vein, Percutaneous Approach (ICD-10-PCS; 2021-08-14)
PROC: 3E023GC Introduction of Other Therapeutic Substance into Muscle, Percutaneous Approach (ICD-10-PCS; 2021-08-14)
PROC: 3E033GC Introduction of Other Therapeutic Substance into Peripheral Vein, Percutaneous Approach (ICD-10-PCS; 2021-08-14)
DX: I48.91 Unspecified atrial fibrillation (principal); M54.9 Dorsalgia, unspecified; Z86.79 Personal history of other diseases of the circulatory system; E66.9 Obesity, unspecified; Z68.38 Body mass index [BMI] 38.0-38.9, adult; E78.5 Hyperlipidemia, unspecified; I10 Essential (primary) hypertension; R07.89 Other chest pain; Z79.01 Long term (current) use of anticoagulants
CPT/HCPCS: 36415; 71045-TC-FY; 71250-TC; 72128-TC; 80048; 80053; 82962; 83735; 84484; 85025; 93005; 93010; 96372; 96374; 96375; 96376; 99285-25; C9803-CS; G0378; U0003; U0005

== ENCOUNTER 2021-08-19 11:47 | Observation (INO) | payer OTHER ==
[2021-08-19 12:16] VITALS: TEMP 97.9; BMI 36.6
[2021-08-19] MEDS ORDERED: HYDROmorphone HCL CARPU-JECT 2 MG/1 ML DISP.SYRIN IM ONE (13:22)
[2021-08-19] MEDS ORDERED: HYDROmorphone HCl 2 MG/ML VIAL ONE ×2 (13:29→17:35)
[2021-08-19 14:42] LABS: BASO % 0.6 % (0-2.0); EOS % 1.5 % (0-4.5); HEMATOCRIT 41.4 % (32.4-45.2); HEMOGLOBIN 13.6 GM/dL (10.7-15.3); LYMPH % 17.1 % (8-40); MCHC 32.8 g/dl (32.0-36.0); MEAN CELL VOLUME 88.5 fl (80-96); MEAN PLT VOLUME 8.3 fl (7.5-11.1); MONO % 6.9 % (3.8-10.2); NEUT % 73.9 % (42.8-82.8); PLATELET COUNT 426 10^3/uL (134-434); RBC 4.68 M/mm3 (3.60-5.2); RDW 15.2 % (11.6-15.6); WHITE BLOOD COUNT 11.5 K/mm3 (4.0-10.0)
[2021-08-19] MEDS ORDERED: KETOROLAC TROMETHAMINE 15 MG/ML VIAL IVPUSH ONE (14:42)
[2021-08-19] MEDS ORDERED: oxyCODONE HCL 5 MG TABLET PO ONE (14:43)
[2021-08-19] MEDS ORDERED: oxyCODONE HCL 5 MG TABLET ONE (14:56)
[2021-08-19] MEDS ORDERED: KETOROLAC TROMETHAMINE 15 MG/ML VIAL ONE (14:56)
[2021-08-19 15:08] LABS: CALCIUM 9.3 mg/dL (8.5-10.1)
[2021-08-19 15:09] LABS: BLOOD UREA NITROGEN 37.6 mg/dL (7-18)
[2021-08-19 15:13] LABS: BILIRUBIN,TOTAL 0.8 mg/dL (0.2-1); TOT PROT 8.2 g/dl (6.4-8.2)
[2021-08-19] MEDS ORDERED: HYDROmorphone HCL CARPU-JECT 2 MG/1 ML DISP.SYRIN IVPUSH ONE (17:17)
[2021-08-19 19:53] LABS: INR 1.31 (0.83-1.09); PROTHROMBIN TIME (PATIENT) 15.1 SEC (9.7-13.0)
[2021-08-19 19:56] LABS: ACTIVATED PTT 32.2 SECONDS (25.2-36.5)
[2021-08-19 21:17] LABS: PH,URINE 5.5 (5.0-8.0); URINE APPEARANCE CLEAR; URINE BILIRUBIN NEGATIVE (NEGATIVE); URINE COLOR YELLOW; URINE GLUCOSE (UA) NEGATIVE (NEGATIVE); URINE KETONE NEGATIVE (NEGATIVE); URINE LEUK ESTERASE NEGATIVE (NEGATIVE); URINE NITRITE NEGATIVE (NEGATIVE); URINE PROTEIN NEGATIVE (NEGATIVE); URINE UROBILINOGEN 0.2 mg/dL (0.2-1.0)
[2021-08-19] MEDS ORDERED: TAPENTADOL HYDROCHLORIDE 50 MG TABLET PO PRN (21:45)
[2021-08-19] MEDS ORDERED: METOPROLOL TARTRATE 25 MG TABLET (FP) PO SCH (22:00)
[2021-08-19] MEDS ORDERED: MAGNESIUM OXIDE 400 MG TABLET (FP) PO SCH (22:00)
[2021-08-19] MEDS ORDERED: ATORVASTATIN CA 10 MG TABLET (FP) PO SCH (22:00)
[2021-08-19] MEDS ORDERED: APIXABAN 5 MG TABLET PO SCH (22:00)
[2021-08-19] MEDS ORDERED: DOCUSATE SODIUM 100 MG CAPSULE (FP) PO SCH (22:00)
[2021-08-19] MEDS ORDERED: ATORVASTATIN CA 10 MG TABLET (FP) ONE (23:17)
[2021-08-19] MEDS ORDERED: MAGNESIUM OXIDE 400 MG TABLET (FP) ONE (23:17)
[2021-08-19] MEDS ORDERED: APIXABAN 5 MG TABLET ONE (23:17)
[2021-08-19] MEDS ORDERED: DOCUSATE SODIUM 100 MG CAPSULE (FP) PO ONE (23:17)
[2021-08-19] MEDS ORDERED: METOPROLOL TARTRATE 25 MG TABLET (FP) ONE (23:17)
[2021-08-19] MEDS ORDERED: TAPENTADOL HYDROCHLORIDE 50 MG TABLET PO ONE (23:18)
[2021-08-19 23:59] VITALS: BP 149/82; PULSE 76
[2021-08-20] MEDS ORDERED: ENOXAPARIN NA (PORCINE) 100 MG/1 ML DISP.SYRIN SQ SCH (06:45)
[2021-08-20] MEDS ORDERED: ALLOPURINOL 100 MG TABLET (FP) PO SCH (10:00)
[2021-08-20] MEDS ORDERED: PATIENT'S OWN MEDICATION (NON-FORMULARY) (Losartan Potassium [Losartan Potassium] 100 MG T PO SCH (10:00)
[2021-08-20] MEDS ORDERED: VALSARTAN 160 MG TABLET PO SCH (10:00)
[2021-08-20] MEDS ORDERED: FAMOTIDINE 20 MG TABLET PO SCH (10:00)
[2021-08-20] MEDS ORDERED: FUROSEMIDE 20 MG TABLET (FP) PO SCH (10:00)
== END 2021-08-20 00:02 | disposition left against medical advice (07) ==
LOC: JER 11:47 → JERFT 11:47 → JERBED 14:37
PROVIDERS: ADMIT Internal Medicine; ATTEND Internal Medicine
PROC: 3E023NZ Introduction of Analgesics, Hypnotics, Sedatives into Muscle, Percutaneous Approach (ICD-10-PCS; principal; 2021-08-19)
PROC: 3E033NZ Introduction of Analgesics, Hypnotics, Sedatives into Peripheral Vein, Percutaneous Approach (ICD-10-PCS; 2021-08-19)
DX: M54.9 Dorsalgia, unspecified (principal); E66.9 Obesity, unspecified; Z68.36 Body mass index [BMI] 36.0-36.9, adult; I48.91 Unspecified atrial fibrillation; Z79.01 Long term (current) use of anticoagulants; I10 Essential (primary) hypertension; E78.5 Hyperlipidemia, unspecified; R73.03 Prediabetes; K21.9 Gastro-esophageal reflux disease without esophagitis; G89.29 Other chronic pain; N28.9 Disorder of kidney and ureter, unspecified; M19.90 Unspecified osteoarthritis, unspecified site; Z90.49 Acquired absence of other specified parts of digestive tract; Z86.16 Personal history of COVID-19
CPT/HCPCS: 0241U-QW; 36415; 71046-TC-FY; 80053; 81003; 85025; 85610; 85730; 87086; 87186; 93005; 93010; 96372; 96374; 96375; 99285-25; G0378

== ENCOUNTER 2021-11-06 19:58 | Observation (INO) | payer OTHER ==
[2021-11-06] MEDS ORDERED: LIDOCAINE 5% TOPICAL PATCH TP ONE (20:56)
[2021-11-06] MEDS ORDERED: LIDOCAINE 5% TOPICAL PATCH ONE (20:57)
[2021-11-06 22:03] LABS: BASO % 0.4 % (0-2.0); EOS % 1.1 % (0-4.5); HEMATOCRIT 40.1 % (32.4-45.2); HEMOGLOBIN 13.3 GM/dL (10.7-15.3); LYMPH % 23.5 % (8-40); MCH 29.8 pg (25.7-33.7); MCHC 33.2 g/dl (32.0-36.0); MEAN CELL VOLUME 89.7 fl (80-96); MEAN PLT VOLUME 8.4 fl (7.5-11.1); MONO % 7.5 % (3.8-10.2); NEUT % 67.5 % (42.8-82.8); PLATELET COUNT 385 10^3/uL (134-434); RBC 4.46 M/mm3 (3.60-5.2); RDW 15.2 % (11.6-15.6); WHITE BLOOD COUNT 10.2 K/mm3 (4.0-10.0)
[2021-11-06 22:20] LABS: BLOOD UREA NITROGEN 35.7 mg/dL (7-18); CALCIUM 9.5 mg/dL (8.5-10.1)
[2021-11-06 22:21] LABS: ALBUMIN 3.8 g/dl (3.4-5.0)
[2021-11-06 22:24] LABS: CREATININE 1.2 mg/dL (0.55-1.3)
[2021-11-06 22:25] LABS: BILIRUBIN,TOTAL 0.4 mg/dL (0.2-1); TOT PROT 7.6 g/dl (6.4-8.2)
[2021-11-06] MEDS ORDERED: morphine CARPU-JECT 4 MG/1 ML DISP.SYRIN IVPUSH ONE (22:37)
[2021-11-06] MEDS: LIDOCAINE PATCH REMOVAL MC SCH (22:45)
[2021-11-06] MEDS ORDERED: morphine SULFATE 4 MG/ML VIAL ONE (22:46)
[2021-11-07 02:45] LABS: EPI CELLS 31 /uL (0-25.1); HYALINE CASTS 0 /uL (0-3.1); URINE APPEARANCE CLEAR; URINE BACTERIA 112 /uL (0-1359); URINE BILIRUBIN NEGATIVE (NEGATIVE); URINE COLOR YELLOW; URINE GLUCOSE (UA) NEGATIVE (NEGATIVE); URINE KETONE NEGATIVE (NEGATIVE); URINE LEUK ESTERASE NEGATIVE (NEGATIVE); URINE NITRITE NEGATIVE (NEGATIVE); URINE PROTEIN NEGATIVE (NEGATIVE); URINE RBC 5 /uL (0-23.9); URINE UROBILINOGEN 0.2 mg/dL (0.2-1.0); URINE WBC 2 /uL (0-25.8)
[2021-11-07] MEDS ORDERED: morphine SULFATE 4 MG/ML VIAL ONE (02:54)
[2021-11-07] MEDS ORDERED: morphine CARPU-JECT 4 MG/1 ML DISP.SYRIN IVPUSH ONE (02:54)
[2021-11-07] MEDS ORDERED: ACETAMINOPHEN 1000 MG/100 ML BAG IVPB PRN (04:12)
[2021-11-07] MEDS ORDERED: traMADol HCL 50 MG TABLET PO ONE (04:12)
[2021-11-07] MEDS ORDERED: ALPRAZolam 1 MG TABLET PO PRN (05:15)
[2021-11-07] MEDS ORDERED: traMADol HCL 50 MG TABLET ONE (05:43)
[2021-11-07] MEDS ORDERED: FAMOTIDINE 20 MG TABLET ONE (09:09)
[2021-11-07] MEDS ORDERED: APIXABAN 5 MG TABLET ONE (09:09)
[2021-11-07] MEDS ORDERED: METOPROLOL TARTRATE 25 MG TABLET (FP) ONE (09:09)
[2021-11-07] MEDS ORDERED: LOSARTAN POTASSIUM 50 MG TABLET ONE (09:10)
[2021-11-07] MEDS ORDERED: DOCUSATE SODIUM 100 MG CAPSULE (FP) PO ONE (09:10)
[2021-11-07] MEDS ORDERED: VALSARTAN 80 MG TABLET ONE (09:10)
[2021-11-07] MEDS ORDERED: MAGNESIUM OXIDE 400 MG TABLET (FP) ONE (09:10)
[2021-11-07] MEDS ORDERED: FUROSEMIDE 20 MG TABLET (FP) ONE (09:10)
[2021-11-07] MEDS: VALSARTAN 80 MG TABLET PO SCH (09:21)
[2021-11-07] MEDS: APIXABAN 5 MG TABLET PO SCH (09:21)
[2021-11-07] MEDS: METOPROLOL TARTRATE 25 MG TABLET (FP) PO SCH (09:21)
[2021-11-07] MEDS: ALLOPURINOL 100 MG TABLET (FP) PO SCH (09:21)
[2021-11-07] MEDS: FUROSEMIDE 20 MG TABLET (FP) PO SCH (09:21)
[2021-11-07] MEDS: DOCUSATE SODIUM 100 MG CAPSULE (FP) PO SCH (09:21)
[2021-11-07] MEDS: LOSARTAN POTASSIUM 50 MG TABLET PO SCH (09:21)
[2021-11-07] MEDS: MAGNESIUM OXIDE 400 MG TABLET (FP) PO SCH (09:21)
[2021-11-07] MEDS: Methylnaltrexone Bromide 12 MG/0.6 ML KIT SQ SCH (09:22)
[2021-11-07] MEDS ORDERED: TAPENTADOL HYDROCHLORIDE 50 MG TABLET PO ONE ×2 (09:46→16:24)
[2021-11-07] MEDS: TAPENTADOL HYDROCHLORIDE 50 MG TABLET PO PRN ×2 (09:47→16:33)
[2021-11-07] MEDS ORDERED: FAMOTIDINE 40 MG TABLET PO SCH (10:00)
[2021-11-07] MEDS ORDERED: CYCLOBENZAPRINE HCL 5 MG TABLET ONE (13:11)
[2021-11-07] MEDS: CYCLOBENZAPRINE HCL 10 MG TABLET (FP) PO SCH (13:13)
[2021-11-07] MEDS ORDERED: ACETAMINOPHEN INJECTION 100 ML IVPB ONE (13:14)
[2021-11-07] MEDS ORDERED: HEPARIN NA (PORCINE) 5,000 UNITS/ML 1ML VIAL SQ SCH (14:00)
[2021-11-07] MEDS ORDERED: ATORVASTATIN CA 40 MG TABLET (FP) PO SCH (22:00)
[2021-11-08] MEDS: APIXABAN 5 MG TABLET PO SCH ×3 (00:51→21:42)
[2021-11-08] MEDS: MAGNESIUM OXIDE 400 MG TABLET (FP) PO SCH ×3 (00:51→21:42)
[2021-11-08] MEDS: DOCUSATE SODIUM 100 MG CAPSULE (FP) PO SCH ×3 (00:51→21:42)
[2021-11-08] MEDS: VALSARTAN 80 MG TABLET PO SCH ×3 (00:51→21:42)
[2021-11-08] MEDS: METOPROLOL TARTRATE 25 MG TABLET (FP) PO SCH ×3 (00:51→21:42)
[2021-11-08] MEDS: CYCLOBENZAPRINE HCL 10 MG TABLET (FP) PO SCH ×4 (00:51→21:43)
[2021-11-08] MEDS ORDERED: VALSARTAN 80 MG TABLET ONE (00:58)
[2021-11-08] MEDS ORDERED: CYCLOBENZAPRINE HCL 10 MG TABLET (FP) ONE (00:58)
[2021-11-08] MEDS ORDERED: MAGNESIUM OXIDE 400 MG TABLET (FP) ONE (00:58)
[2021-11-08] MEDS ORDERED: APIXABAN 5 MG TABLET ONE (00:58)
[2021-11-08] MEDS: LIDOCAINE PATCH REMOVAL MC SCH ×2 (02:00→21:42)
[2021-11-08 05:02] VITALS: BMI 39.0
[2021-11-08 08:41] LABS: CALCIUM 8.4 mg/dL (8.5-10.1)
[2021-11-08 08:42] LABS: BLOOD UREA NITROGEN 38.6 mg/dL (7-18)
[2021-11-08 08:45] LABS: CREATININE 0.8 mg/dL (0.55-1.3)
[2021-11-08 08:53] LABS: BASO % 0.3 % (0-2.0); EOS % 1.2 % (0-4.5); HEMATOCRIT 35.6 % (32.4-45.2); HEMOGLOBIN 12.3 GM/dL (10.7-15.3); LYMPH % 18.9 % (8-40); MCHC 34.5 g/dl (32.0-36.0); MEAN CELL VOLUME 89.8 fl (80-96); MEAN PLT VOLUME 7.9 fl (7.5-11.1); MONO % 8.6 % (3.8-10.2); PLATELET COUNT 293 10^3/uL (134-434); RBC 3.96 M/mm3 (3.60-5.2); RDW 15.1 % (11.6-15.6); WHITE BLOOD COUNT 7.5 K/mm3 (4.0-10.0)
[2021-11-08] MEDS: Methylnaltrexone Bromide 12 MG/0.6 ML KIT SQ SCH (09:56)
[2021-11-08] MEDS: LOSARTAN POTASSIUM 50 MG TABLET PO SCH (09:58)
[2021-11-08] MEDS: ALLOPURINOL 100 MG TABLET (FP) PO SCH (09:58)
[2021-11-08] MEDS: FUROSEMIDE 20 MG TABLET (FP) PO SCH (09:58)
[2021-11-08] MEDS: FAMOTIDINE 20 MG TABLET PO SCH (10:00)
[2021-11-08] MEDS ORDERED: FLU VACC QS2022-23(6MOS UP)/PF 60 MCG/0.5 ML SYRINGE IM ONE (10:00)
[2021-11-08] MEDS ORDERED: SODIUM PHOSPHATE/NA BIPHOS 133 ML ENEMA RC ONE (11:39)
[2021-11-08] MEDS ORDERED: POTASSIUM CHLORIDE TABS 10 MEQ TABLET.ER (FP) PO ONE (11:41)
[2021-11-08] MEDS ORDERED: ATORVASTATIN CA 10 MG TABLET (FP) PO SCH (21:34)
[2021-11-09] MEDS: CYCLOBENZAPRINE HCL 10 MG TABLET (FP) PO SCH (05:52)
[2021-11-09 06:21] VITALS: PULSE 82
[2021-11-09 08:08] LABS: HEMATOCRIT 36.9 % (32.4-45.2); HEMOGLOBIN 12.4 GM/dL (10.7-15.3); MCH 30.1 pg (25.7-33.7); MCHC 33.6 g/dl (32.0-36.0); MEAN CELL VOLUME 89.8 fl (80-96); MEAN PLT VOLUME 7.9 fl (7.5-11.1); PLATELET COUNT 293 10^3/uL (134-434); RBC 4.11 M/mm3 (3.60-5.2); RDW 14.9 % (11.6-15.6); WHITE BLOOD COUNT 7.3 K/mm3 (4.0-10.0)
[2021-11-09 08:37] LABS: CALCIUM 8.4 mg/dL (8.5-10.1)
[2021-11-09 08:38] LABS: BLOOD UREA NITROGEN 30.2 mg/dL (7-18); MAGNESIUM 2.2 mg/dL (1.8-2.4)
[2021-11-09 08:40] LABS: CREATININE 0.7 mg/dL (0.55-1.3)
[2021-11-09 08:43] VITALS: BP 143/75; RESP 18; TEMP 98.3
[2021-11-09] MEDS: FAMOTIDINE 20 MG TABLET PO SCH (09:43)
[2021-11-09] MEDS: ALLOPURINOL 100 MG TABLET (FP) PO SCH (09:43)
[2021-11-09] MEDS: VALSARTAN 80 MG TABLET PO SCH (09:43)
[2021-11-09] MEDS: APIXABAN 5 MG TABLET PO SCH (09:43)
[2021-11-09] MEDS: LOSARTAN POTASSIUM 50 MG TABLET PO SCH (09:43)
[2021-11-09] MEDS: FUROSEMIDE 20 MG TABLET (FP) PO SCH (09:43)
[2021-11-09] MEDS: DOCUSATE SODIUM 100 MG CAPSULE (FP) PO SCH (09:43)
[2021-11-09] MEDS: MAGNESIUM OXIDE 400 MG TABLET (FP) PO SCH (09:43)
[2021-11-09] MEDS: METOPROLOL TARTRATE 25 MG TABLET (FP) PO SCH (09:44)
[2021-11-09] MEDS: Methylnaltrexone Bromide 12 MG/0.6 ML KIT SQ SCH (09:44)
== END 2021-11-09 12:25 | disposition home or self-care (01) ==
LOC: JER 19:58 → JERBED 11-07 04:00 → J4W 11-08 01:40
PROVIDERS: ADMIT Internal Medicine; ATTEND Family Medicine
PROC: 3E033NZ Introduction of Analgesics, Hypnotics, Sedatives into Peripheral Vein, Percutaneous Approach (ICD-10-PCS; principal; 2021-11-07)
PROC: 3E0234Z Introduction of Serum, Toxoid and Vaccine into Muscle, Percutaneous Approach (ICD-10-PCS; 2021-11-07)
PROC: 3E023GC Introduction of Other Therapeutic Substance into Muscle, Percutaneous Approach (ICD-10-PCS; 2021-11-07)
PROC: 3E033NZ Introduction of Analgesics, Hypnotics, Sedatives into Peripheral Vein, Percutaneous Approach (ICD-10-PCS; 2021-11-07)
DX: I12.9 Hypertensive chronic kidney disease with stage 1 through stage 4 chronic kidney disease, or unspecified chronic kidney disease (principal); K57.90 Diverticulosis of intestine, part unspecified, without perforation or abscess without bleeding; G89.29 Other chronic pain; E78.5 Hyperlipidemia, unspecified; K21.9 Gastro-esophageal reflux disease without esophagitis; I48.91 Unspecified atrial fibrillation; Z68.39 Body mass index [BMI] 39.0-39.9, adult; K44.9 Diaphragmatic hernia without obstruction or gangrene; E66.8 Other obesity; R73.03 Prediabetes; R07.9 Chest pain, unspecified; Z79.01 Long term (current) use of anticoagulants; N18.9 Chronic kidney disease, unspecified; R00.0 Tachycardia, unspecified; K59.00 Constipation, unspecified; Z23 Encounter for immunization
CPT/HCPCS: 36415; 71045-TC-FY; 71275-TC; 72146-TC; 74174-TC; 76705-TC; 80048; 80053; 81003; 83735; 84484; 85025; 85027; 87086; 93005; 93010; 96372; 96374; 96375; 96376; 99285-25; C9803-CS; G0008; G0378; Q2036; Q9967; U0003; U0005

== ENCOUNTER 2022-01-18 17:06 | Emergency (ER) | payer OTHER ==
[2022-01-18 17:21] VITALS: BMI 38.2
[2022-01-18 18:45] LABS: BASO % 0.7 % (0-2.0); EOS % 1.2 % (0-4.5); HEMATOCRIT 39.6 % (32.4-45.2); LYMPH % 15.1 % (8-40); MCH 29.6 pg (25.7-33.7); MCHC 32.9 g/dl (32.0-36.0); MEAN CELL VOLUME 89.9 fl (80-96); MEAN PLT VOLUME 7.8 fl (7.5-11.1); MONO % 7.3 % (3.8-10.2); NEUT % 75.7 % (42.8-82.8); PLATELET COUNT 316 10^3/uL (134-434); RDW 14.2 % (11.6-15.6); WHITE BLOOD COUNT 8.1 K/mm3 (4.0-10.0)
[2022-01-18 18:58] LABS: ACTIVATED PTT 37.3 SECONDS (25.2-36.5); INR 1.04 (0.83-1.09)
[2022-01-18 19:14] LABS: ALBUMIN 3.6 g/dl (3.4-5.0); MAGNESIUM 1.9 mg/dL (1.8-2.4)
[2022-01-18 19:17] LABS: CREATININE 1.1 mg/dL (0.55-1.3)
[2022-01-18 19:19] LABS: BILIRUBIN,TOTAL 0.3 mg/dL (0.2-1); TOT PROT 7.3 g/dl (6.4-8.2)
[2022-01-18] MEDS ORDERED: ACETAMINOPHEN 1000 MG/100 ML BAG IVPB ONE (21:43)
[2022-01-18] MEDS ORDERED: SODIUM CHLORIDE 1,000 ML IV STA (21:46)
[2022-01-18] MEDS ORDERED: ACETAMINOPHEN INJECTION 100 ML IVPB ONE (22:42)
[2022-01-18 23:15] LABS: PH,URINE 5.5 (5.0-8.0); URINE APPEARANCE CLEAR; URINE BILIRUBIN NEGATIVE (NEGATIVE); URINE COLOR YELLOW; URINE GLUCOSE (UA) NEGATIVE (NEGATIVE); URINE KETONE NEGATIVE (NEGATIVE); URINE LEUK ESTERASE NEGATIVE (NEGATIVE); URINE NITRITE NEGATIVE (NEGATIVE); URINE PROTEIN NEGATIVE (NEGATIVE); URINE UROBILINOGEN 0.2 mg/dL (0.2-1.0)
[2022-01-19] MEDS ORDERED: HYDROmorphone HCL CARPU-JECT 2 MG/1 ML DISP.SYRIN IVPUSH ONE (01:30)
[2022-01-19] MEDS ORDERED: HYDROmorphone HCl 2 MG/ML VIAL ONE (01:40)
[2022-01-19 05:45] VITALS: BP 155/88; PULSE 103; RESP 18
[2022-01-19 05:57] VITALS: TEMP 98.7
== END 2022-01-19 06:00 | disposition home or self-care (01) ==
LOC: JER 17:06
PROC: 3E0333Z Introduction of Anti-inflammatory into Peripheral Vein, Percutaneous Approach (ICD-10-PCS; principal; 2022-01-18)
PROC: 3E033NZ Introduction of Analgesics, Hypnotics, Sedatives into Peripheral Vein, Percutaneous Approach (ICD-10-PCS; 2022-01-18)
PROC: 3E0337Z Introduction of Electrolytic and Water Balance Substance into Peripheral Vein, Percutaneous Approach (ICD-10-PCS; 2022-01-18)
DX: M54.6 Pain in thoracic spine (principal); R11.2 Nausea with vomiting, unspecified
CPT/HCPCS: 0241U-QW; 36415; 71045-TC-FY; 74176-TC; 80053; 81003; 83735; 84484; 85025; 85610; 85730; 87086; 93005; 93010; 99285-25

== ENCOUNTER 2022-09-12 09:08 | Inpatient (IN) | payer OTHER ==
[2022-09-12] MEDS ORDERED: ACETAMINOPHEN 1000 MG/100 ML BAG IVPB ONE (09:49)
[2022-09-12] MEDS ORDERED: morphine CARPU-JECT 4 MG/1 ML DISP.SYRIN IVPUSH ONE ×2 (09:57→13:31)
[2022-09-12] MEDS ORDERED: ACETAMINOPHEN INJECTION 100 ML IVPB ONE (09:59)
[2022-09-12] MEDS ORDERED: morphine SULFATE 4 MG/ML VIAL ONE ×2 (09:59→14:39)
[2022-09-12 10:05] LABS: BASO % 0.2 % (0-2.0); HEMOGLOBIN 12.9 GM/dL (10.7-15.3); LYMPH % 10.1 % (8-40); MCH 29.6 pg (25.7-33.7); MCHC 33.2 g/dl (32.0-36.0); MEAN CELL VOLUME 89.2 fl (80-96); MEAN PLT VOLUME 8.4 fl (7.5-11.1); MONO % 3.7 % (3.8-10.2); PLATELET COUNT 383 10^3/uL (134-434); RBC 4.37 M/mm3 (3.60-5.2); RDW 15.8 % (11.6-15.6); WHITE BLOOD COUNT 7.6 K/mm3 (4.0-10.0)
[2022-09-12] MEDS ORDERED: LIDOCAINE 5% TOPICAL PATCH TP ONE (10:05)
[2022-09-12 10:10] LABS: INR 1.21 (0.83-1.09)
[2022-09-12 10:12] LABS: ACTIVATED PTT 36.5 SECONDS (25.2-36.5)
[2022-09-12] MEDS ORDERED: LIDOCAINE 5% TOPICAL PATCH ONE (10:16)
[2022-09-12 10:23] LABS: POTASSIUM 3.6 mmol/L (3.5-5.1)
[2022-09-12 10:25] LABS: CALCIUM 8.9 mg/dL (8.5-10.1)
[2022-09-12 10:26] LABS: ALBUMIN 3.8 g/dl (3.4-5.0); BLOOD UREA NITROGEN 26.4 mg/dL (7-18)
[2022-09-12 10:29] LABS: CREATININE 1.2 mg/dL (0.55-1.3)
[2022-09-12 10:30] LABS: BILIRUBIN,TOTAL 0.4 mg/dL (0.2-1); TOT PROT 7.1 g/dl (6.4-8.2)
[2022-09-12] MEDS ORDERED: SODIUM CHLORIDE 0.9% 500 ML INFUS.BAG IV ONE (11:04)
[2022-09-12 11:18] LABS: EPI CELLS >36 /uL (0-25.1); HYALINE CASTS 2 /uL (0-3.1); URINE APPEARANCE CLEAR; URINE BACTERIA 261 /uL (0-1359); URINE BILIRUBIN NEGATIVE (NEGATIVE); URINE COLOR ORANGE; URINE GLUCOSE (UA) NEGATIVE (NEGATIVE); URINE KETONE TRACE (NEGATIVE); URINE LEUK ESTERASE NEGATIVE (NEGATIVE); URINE NITRITE NEGATIVE (NEGATIVE); URINE PROTEIN 1+ (NEGATIVE); URINE RBC 36 /uL (0-23.9); URINE WBC 18 /uL (0-25.8)
[2022-09-12] MEDS ORDERED: KETOROLAC TROMETHAMINE 15 MG/ML VIAL IVPUSH ONE (11:50)
[2022-09-12] MEDS ORDERED: KETOROLAC TROMETHAMINE 15 MG/ML VIAL ONE (11:59)
[2022-09-12] MEDS ORDERED: TAPENTADOL HYDROCHLORIDE 50 MG TABLET PO PRN (16:31)
[2022-09-12 16:53] VITALS: BMI 32.9
[2022-09-12] MEDS ORDERED: METHYLNALTREXONE BROMIDE 8 MG/0.4 ML SYRINGE SQ ONE (17:15)
[2022-09-12] MEDS: HYDROmorphone HCl 2 MG/ML VIAL IVPB PRN (17:27)
[2022-09-12] MEDS: CYCLOBENZAPRINE HCL 5 MG TABLET PO SCH (21:27)
[2022-09-12] MEDS: DOCUSATE SODIUM 100 MG CAPSULE (FP) PO SCH (21:27)
[2022-09-12] MEDS: MAGNESIUM OXIDE 400 MG TABLET (FP) PO SCH (21:27)
[2022-09-12] MEDS: ATORVASTATIN CA 10 MG TABLET (FP) PO SCH (21:28)
[2022-09-12] MEDS: METOPROLOL TARTRATE 25 MG TABLET (FP) PO SCH (21:28)
[2022-09-12] MEDS: APIXABAN 5 MG TABLET PO SCH (21:28)
[2022-09-12] MEDS: LIDOCAINE PATCH REMOVAL MC SCH (21:29)
[2022-09-13] MEDS: DOCUSATE SODIUM 100 MG CAPSULE (FP) PO SCH ×3 (06:14→22:05)
[2022-09-13] MEDS: CYCLOBENZAPRINE HCL 5 MG TABLET PO SCH ×3 (06:14→22:05)
[2022-09-13] MEDS: HYDROmorphone HCl 2 MG/ML VIAL IVPB PRN ×3 (07:07→19:57)
[2022-09-13] MEDS: PREGABALIN 25 MG CAPSULE PO SCH ×2 (09:36→22:05)
[2022-09-13] MEDS: ALLOPURINOL 300 MG TABLET (FP) PO SCH (09:36)
[2022-09-13] MEDS: APIXABAN 5 MG TABLET PO SCH ×2 (09:36→22:05)
[2022-09-13] MEDS: METOPROLOL TARTRATE 25 MG TABLET (FP) PO SCH ×2 (09:36→22:05)
[2022-09-13] MEDS: FUROSEMIDE 20 MG TABLET (FP) PO SCH (09:37)
[2022-09-13] MEDS: MAGNESIUM OXIDE 400 MG TABLET (FP) PO SCH ×2 (09:37→22:05)
[2022-09-13] MEDS: VALSARTAN 160 MG TABLET PO SCH (09:38)
[2022-09-13] MEDS: TAPENTADOL HYDROCHLORIDE 50 MG TABLET PO PRN ×2 (11:26→18:52)
[2022-09-13] MEDS: ACETAMINOPHEN 325 MG TABLET (FP) PO PRN (19:33)
[2022-09-13] MEDS: ATORVASTATIN CA 10 MG TABLET (FP) PO SCH (22:05)
[2022-09-13] MEDS: LIDOCAINE PATCH REMOVAL MC SCH (22:33)
[2022-09-14] MEDS: TAPENTADOL HYDROCHLORIDE 50 MG TABLET PO PRN (02:27)
[2022-09-14] MEDS: CYCLOBENZAPRINE HCL 5 MG TABLET PO SCH ×3 (05:34→21:20)
[2022-09-14] MEDS: DOCUSATE SODIUM 100 MG CAPSULE (FP) PO SCH ×3 (05:34→21:20)
[2022-09-14] MEDS: HYDROmorphone HCl 2 MG/ML VIAL IVPB PRN ×2 (07:50→21:41)
[2022-09-14] MEDS: APIXABAN 5 MG TABLET PO SCH ×2 (09:24→21:20)
[2022-09-14] MEDS: METOPROLOL TARTRATE 25 MG TABLET (FP) PO SCH ×2 (09:24→21:20)
[2022-09-14] MEDS: VALSARTAN 160 MG TABLET PO SCH (09:24)
[2022-09-14] MEDS: PREGABALIN 25 MG CAPSULE PO SCH ×2 (09:24→21:20)
[2022-09-14] MEDS: MAGNESIUM OXIDE 400 MG TABLET (FP) PO SCH ×2 (09:24→21:20)
[2022-09-14] MEDS: ALLOPURINOL 300 MG TABLET (FP) PO SCH (09:24)
[2022-09-14] MEDS: FUROSEMIDE 20 MG TABLET (FP) PO SCH (09:24)
[2022-09-14] MEDS ORDERED: MAGNESIUM HYDROX 2400MG/30ML ORAL SUSPENSION 30 ML CUP PO ONE (13:12)
[2022-09-14] MEDS ORDERED: GLYCERIN 1 RECTAL SUPPOSITORY, ADULT RC PRN (13:28)
[2022-09-14] MEDS: POLYETHYLENE GLYCOL (HEALTHYLAX) 3350 17 GM PACKET PO SCH (14:50)
[2022-09-14] MEDS: METHYLNALTREXONE BROMIDE 8 MG/0.4 ML SYRINGE SQ SCH (16:04)
[2022-09-14] MEDS: ATORVASTATIN CA 10 MG TABLET (FP) PO SCH (21:20)
[2022-09-14] MEDS: LIDOCAINE PATCH REMOVAL MC SCH (21:26)
[2022-09-15] MEDS: TAPENTADOL HYDROCHLORIDE 50 MG TABLET PO PRN (03:00)
[2022-09-15] MEDS: CYCLOBENZAPRINE HCL 5 MG TABLET PO SCH ×3 (05:34→21:22)
[2022-09-15] MEDS: DOCUSATE SODIUM 100 MG CAPSULE (FP) PO SCH ×3 (05:34→21:22)
[2022-09-15] MEDS: HYDROmorphone HCl 2 MG/ML VIAL IVPB PRN ×2 (08:26→16:14)
[2022-09-15] MEDS: APIXABAN 5 MG TABLET PO SCH ×2 (10:59→21:22)
[2022-09-15] MEDS: FUROSEMIDE 20 MG TABLET (FP) PO SCH (10:59)
[2022-09-15] MEDS: MAGNESIUM OXIDE 400 MG TABLET (FP) PO SCH ×2 (11:00→21:22)
[2022-09-15] MEDS: ALLOPURINOL 300 MG TABLET (FP) PO SCH (11:00)
[2022-09-15] MEDS: METOPROLOL TARTRATE 25 MG TABLET (FP) PO SCH ×2 (11:00→21:24)
[2022-09-15] MEDS: PREGABALIN 25 MG CAPSULE PO SCH ×2 (11:00→21:22)
[2022-09-15] MEDS: POLYETHYLENE GLYCOL (HEALTHYLAX) 3350 17 GM PACKET PO SCH (11:01)
[2022-09-15] MEDS: VALSARTAN 160 MG TABLET PO SCH (11:01)
[2022-09-15] MEDS: METHYLNALTREXONE BROMIDE 8 MG/0.4 ML SYRINGE SQ SCH (13:18)
[2022-09-15] MEDS: ATORVASTATIN CA 10 MG TABLET (FP) PO SCH (21:22)
[2022-09-15] MEDS: LIDOCAINE PATCH REMOVAL MC SCH (21:37)
[2022-09-16] MEDS: CYCLOBENZAPRINE HCL 5 MG TABLET PO SCH ×3 (05:23→21:13)
[2022-09-16] MEDS: DOCUSATE SODIUM 100 MG CAPSULE (FP) PO SCH ×3 (05:23→21:13)
[2022-09-16] MEDS ORDERED: MAGNESIUM HYDROX 2400 MG/30 ML PO ONE (07:30)
[2022-09-16] MEDS: FUROSEMIDE 20 MG TABLET (FP) PO SCH (10:52)
[2022-09-16] MEDS: METOPROLOL TARTRATE 25 MG TABLET (FP) PO SCH ×2 (10:52→21:13)
[2022-09-16] MEDS: MAGNESIUM OXIDE 400 MG TABLET (FP) PO SCH ×2 (10:52→21:13)
[2022-09-16] MEDS: ALLOPURINOL 300 MG TABLET (FP) PO SCH (10:52)
[2022-09-16] MEDS: APIXABAN 5 MG TABLET PO SCH ×2 (10:52→21:14)
[2022-09-16] MEDS: METHYLNALTREXONE BROMIDE 8 MG/0.4 ML SYRINGE SQ SCH (10:53)
[2022-09-16] MEDS: POLYETHYLENE GLYCOL (HEALTHYLAX) 3350 17 GM PACKET PO SCH (10:53)
[2022-09-16] MEDS: PREGABALIN 25 MG CAPSULE PO SCH ×2 (11:06→21:13)
[2022-09-16] MEDS: VALSARTAN 160 MG TABLET PO SCH (11:06)
[2022-09-16] MEDS: TAPENTADOL HYDROCHLORIDE 50 MG TABLET PO PRN ×2 (18:22→22:22)
[2022-09-16] MEDS: HYDROmorphone HCl 2 MG/ML VIAL IVPB PRN (19:12)
[2022-09-16] MEDS: ACETAMINOPHEN 325 MG TABLET (FP) PO PRN (19:58)
[2022-09-16] MEDS: ATORVASTATIN CA 10 MG TABLET (FP) PO SCH (21:13)
[2022-09-16] MEDS: LIDOCAINE PATCH REMOVAL MC SCH (21:21)
[2022-09-17] MEDS: HYDROmorphone HCl 2 MG/ML VIAL IVPB PRN (03:02)
[2022-09-17] MEDS: CYCLOBENZAPRINE HCL 5 MG TABLET PO SCH ×3 (05:42→21:28)
[2022-09-17] MEDS: DOCUSATE SODIUM 100 MG CAPSULE (FP) PO SCH ×3 (05:42→21:28)
[2022-09-17] MEDS: TAPENTADOL HYDROCHLORIDE 50 MG TABLET PO PRN ×2 (06:50→14:59)
[2022-09-17] MEDS: FUROSEMIDE 20 MG TABLET (FP) PO SCH (09:29)
[2022-09-17] MEDS: MAGNESIUM OXIDE 400 MG TABLET (FP) PO SCH ×2 (09:29→21:28)
[2022-09-17] MEDS: APIXABAN 5 MG TABLET PO SCH ×2 (09:29→21:28)
[2022-09-17] MEDS: POLYETHYLENE GLYCOL (HEALTHYLAX) 3350 17 GM PACKET PO SCH (09:29)
[2022-09-17] MEDS: METOPROLOL TARTRATE 25 MG TABLET (FP) PO SCH ×2 (09:29→21:28)
[2022-09-17] MEDS: ALLOPURINOL 300 MG TABLET (FP) PO SCH (09:29)
[2022-09-17] MEDS: VALSARTAN 160 MG TABLET PO SCH (09:29)
[2022-09-17] MEDS: LIDOCAINE 5% TOPICAL PATCH TP SCH (09:29)
[2022-09-17] MEDS: PREGABALIN 50 MG CAPSULE PO SCH ×2 (09:29→21:28)
[2022-09-17] MEDS: METHYLNALTREXONE BROMIDE 8 MG/0.4 ML SYRINGE SQ SCH (14:58)
[2022-09-17] MEDS: ATORVASTATIN CA 10 MG TABLET (FP) PO SCH (21:28)
[2022-09-17] MEDS: LIDOCAINE PATCH REMOVAL MC SCH (21:32)
[2022-09-17] MEDS ORDERED: LIDOCAINE PATCH REMOVAL MC SCH (22:00)
[2022-09-18] MEDS ORDERED: MAG HYDROX/AL HYDROX/SIMETH 30 ML UNIT-DOSE CUP PO ONE (01:23)
[2022-09-18] MEDS: DOCUSATE SODIUM 100 MG CAPSULE (FP) PO SCH ×2 (05:22→13:47)
[2022-09-18] MEDS: CYCLOBENZAPRINE HCL 5 MG TABLET PO SCH ×2 (05:22→13:47)
[2022-09-18] MEDS ORDERED: FUROSEMIDE 40 MG/4 ML INJECTABLE VIAL IVPUSH ONE (08:30)
[2022-09-18] MEDS: APIXABAN 5 MG TABLET PO SCH (09:25)
[2022-09-18] MEDS: ALLOPURINOL 300 MG TABLET (FP) PO SCH (09:25)
[2022-09-18] MEDS: VALSARTAN 160 MG TABLET PO SCH (09:25)
[2022-09-18] MEDS: PREGABALIN 50 MG CAPSULE PO SCH (09:25)
[2022-09-18] MEDS: MAGNESIUM OXIDE 400 MG TABLET (FP) PO SCH (09:25)
[2022-09-18] MEDS: LIDOCAINE 5% TOPICAL PATCH TP SCH (09:25)
[2022-09-18] MEDS: POLYETHYLENE GLYCOL (HEALTHYLAX) 3350 17 GM PACKET PO SCH (09:26)
[2022-09-18] MEDS: FUROSEMIDE 20 MG TABLET (FP) PO SCH (09:26)
[2022-09-18] MEDS: METOPROLOL TARTRATE 25 MG TABLET (FP) PO SCH (09:26)
[2022-09-18] MEDS: METHYLNALTREXONE BROMIDE 8 MG/0.4 ML SYRINGE SQ SCH (09:56)
[2022-09-18] MEDS ORDERED: PANTOPRAZOLE 40 MG TABLET PO SCH (10:00)
[2022-09-18 10:43] LABS: HEMATOCRIT 41.4 % (32.4-45.2); HEMOGLOBIN 13.4 GM/dL (10.7-15.3); MCH 29.4 pg (25.7-33.7); MCHC 32.3 g/dl (32.0-36.0); MEAN CELL VOLUME 91.2 fl (80-96); MEAN PLT VOLUME 8.5 fl (7.5-11.1); PLATELET COUNT 323 10^3/uL (134-434); RBC 4.54 M/mm3 (3.60-5.2); RDW 16.4 % (11.6-15.6); WHITE BLOOD COUNT 11.1 K/mm3 (4.0-10.0)
[2022-09-18 10:59] LABS: POTASSIUM 4.7 mmol/L (3.5-5.1)
[2022-09-18 11:02] LABS: ALBUMIN 3.6 g/dl (3.4-5.0); CALCIUM 9.3 mg/dL (8.5-10.1)
[2022-09-18 11:03] LABS: BLOOD UREA NITROGEN 40.7 mg/dL (7-18)
[2022-09-18 11:05] LABS: CREATININE 0.9 mg/dL (0.55-1.3)
[2022-09-18 11:07] LABS: BILIRUBIN,TOTAL 0.4 mg/dL (0.2-1); TOT PROT 6.9 g/dl (6.4-8.2)
[2022-09-18 11:11] LABS: N-TERMINAL BNP 275.9 pg/ml (5-450)
[2022-09-18 11:23] LABS: ANISOCYTOSIS 0; HELMET CELLS 0; HOWELL-JOLLY BODIES 0; MACROCYTOSIS 0; OVALOCYTE 0; ROULEAU 0; SICKELED CELLS 0; TARGET CELLS 0; TEAR DROP CELLS 0; TOXIC GRANULATION 0
[2022-09-18 14:53] VITALS: BP 140/85; PULSE 87; RESP 20; TEMP 97.9
== END 2022-09-18 15:01 | disposition home or self-care (01) | DRG 552 ==
LOC: JER 09:08 → JERBED 13:46 → J8W 15:01 → OBSVTOIN 09-16 13:45
PROVIDERS: ADMIT Family Medicine; ATTEND Family Medicine
DX: M54.9 Dorsalgia, unspecified (principal); I25.10 Atherosclerotic heart disease of native coronary artery without angina pectoris; E78.5 Hyperlipidemia, unspecified; I10 Essential (primary) hypertension; K21.9 Gastro-esophageal reflux disease without esophagitis; I48.0 Paroxysmal atrial fibrillation; R73.03 Prediabetes; K59.00 Constipation, unspecified; K44.9 Diaphragmatic hernia without obstruction or gangrene; M54.50 Low back pain, unspecified; R60.9 Edema, unspecified; K57.90 Diverticulosis of intestine, part unspecified, without perforation or abscess without bleeding; E66.9 Obesity, unspecified; Z68.32 Body mass index [BMI] 32.0-32.9, adult; R00.0 Tachycardia, unspecified; Z96.653 Presence of artificial knee joint, bilateral
CPT/HCPCS: 36415; 71045-TC-FY; 74176-TC; 80053; 81003; 82962; 83690; 83880; 84460; 84484; 85025; 85610; 85730; 87086; 93005; 93010; 93970-TC; 97116-GP; 99285-25; G0378

== ENCOUNTER 2022-09-21 20:29 | Observation (INO) | payer OTHER ==
[2022-09-21 20:43] VITALS: BMI 33.3
[2022-09-21] MEDS ORDERED: morphine CARPU-JECT 4 MG/1 ML DISP.SYRIN IVPUSH ONE (21:17)
[2022-09-21] MEDS ORDERED: morphine SULFATE 4 MG/ML VIAL ONE (21:49)
[2022-09-21 21:52] LABS: BASO % 0.9 % (0-2.0); EOS % 1.6 % (0-4.5); HEMATOCRIT 38.1 % (32.4-45.2); HEMOGLOBIN 12.4 GM/dL (10.7-15.3); LYMPH % 16.1 % (8-40); MCH 29.1 pg (25.7-33.7); MCHC 32.6 g/dl (32.0-36.0); MEAN CELL VOLUME 89.4 fl (80-96); MEAN PLT VOLUME 7.9 fl (7.5-11.1); MONO % 6.6 % (3.8-10.2); NEUT % 74.8 % (42.8-82.8); PLATELET COUNT 279 10^3/uL (134-434); RBC 4.26 M/mm3 (3.60-5.2); RDW 16.4 % (11.6-15.6); WHITE BLOOD COUNT 11.9 K/mm3 (4.0-10.0)
[2022-09-21 22:04] LABS: INR 1.29 (0.83-1.09); PROTHROMBIN TIME (PATIENT) 14.9 SEC (9.7-13.0)
[2022-09-21 22:07] LABS: ACTIVATED PTT 31.8 SECONDS (25.2-36.5)
[2022-09-21 22:16] LABS: POTASSIUM 4.2 mmol/L (3.5-5.1)
[2022-09-21 22:19] LABS: ALBUMIN 3.5 g/dl (3.4-5.0); BLOOD UREA NITROGEN 40.8 mg/dL (7-18); CALCIUM 8.5 mg/dL (8.5-10.1)
[2022-09-21 22:23] LABS: CREATININE 1.3 mg/dL (0.55-1.3)
[2022-09-21 22:24] LABS: BILIRUBIN,TOTAL 0.4 mg/dL (0.2-1); TOT PROT 6.6 g/dl (6.4-8.2)
[2022-09-21] MEDS ORDERED: SENNOSIDES 8.6MG TABLET (FP) PO PRN (23:07)
[2022-09-21] MEDS ORDERED: ACETAMINOPHEN 1000 MG/100 ML BAG IVPB PRN (23:15)
[2022-09-21] MEDS ORDERED: SODIUM CHLORIDE 1,000 ML IV SCH (23:15)
[2022-09-22] MEDS ORDERED: morphine SULFATE 4 MG/ML VIAL ONE ×2 (01:42→09:19)
[2022-09-22] MEDS: morphine SULFATE 4 MG/ML VIAL IVPUSH PRN ×2 (01:44→09:24)
[2022-09-22] MEDS ORDERED: SODIUM PHOSPHATE/NA BIPHOS 133 ML ENEMA RC PRN (02:03)
[2022-09-22] MEDS ORDERED: ACETAMINOPHEN INJECTION 100 ML IVPB ONE (02:14)
[2022-09-22] MEDS ORDERED: ACETAMINOPHEN 1000 MG/100 ML BAG IVPB PRN (06:16)
[2022-09-22] MEDS ORDERED: CYCLOBENZAPRINE HCL 10 MG TABLET (FP) ONE ×2 (06:55→14:49)
[2022-09-22] MEDS: CYCLOBENZAPRINE HCL 10 MG TABLET (FP) PO SCH ×3 (06:55→22:41)
[2022-09-22 06:59] LABS: BASO % 0.7 % (0-2.0); EOS % 1.5 % (0-4.5); HEMATOCRIT 35.3 % (32.4-45.2); HEMOGLOBIN 11.3 GM/dL (10.7-15.3); LYMPH % 17.4 % (8-40); MCH 29.6 pg (25.7-33.7); MEAN CELL VOLUME 92.5 fl (80-96); MEAN PLT VOLUME 8.1 fl (7.5-11.1); MONO % 8.6 % (3.8-10.2); NEUT % 71.8 % (42.8-82.8); PLATELET COUNT 234 10^3/uL (134-434); RBC 3.82 M/mm3 (3.60-5.2); RDW 16.3 % (11.6-15.6); WHITE BLOOD COUNT 8.5 K/mm3 (4.0-10.0)
[2022-09-22] MEDS ORDERED: TAPENTADOL HYDROCHLORIDE 50 MG TABLET PO PRN (08:08)
[2022-09-22] MEDS ORDERED: APIXABAN 5 MG TABLET ONE (09:19)
[2022-09-22] MEDS ORDERED: FAMOTIDINE 20 MG TABLET ONE (09:19)
[2022-09-22] MEDS ORDERED: METOPROLOL TARTRATE 25 MG TABLET (FP) ONE (09:19)
[2022-09-22] MEDS ORDERED: MAGNESIUM OXIDE 400 MG TABLET (FP) ONE (09:20)
[2022-09-22] MEDS ORDERED: VALSARTAN 80 MG TABLET ONE (09:20)
[2022-09-22] MEDS ORDERED: FUROSEMIDE 20 MG TABLET (FP) ONE (09:20)
[2022-09-22] MEDS ORDERED: Methylnaltrexone Bromide 12 MG/0.6 ML KIT SQ SCH ×2 (10:00)
[2022-09-22] MEDS ORDERED: FAMOTIDINE 40 MG TABLET PO SCH (10:00)
[2022-09-22 10:02] LABS: POTASSIUM 4.6 mmol/L (3.5-5.1)
[2022-09-22 10:03] LABS: CALCIUM 8.3 mg/dL (8.5-10.1)
[2022-09-22 10:04] LABS: BLOOD UREA NITROGEN 37.5 mg/dL (7-18); MAGNESIUM 2.4 mg/dL (1.8-2.4)
[2022-09-22 10:07] LABS: PHOSPHOROUS 4.5 mg/dL (2.5-4.9)
[2022-09-22] MEDS: ALLOPURINOL 100 MG TABLET (FP) PO SCH (11:23)
[2022-09-22] MEDS: METOPROLOL TARTRATE 25 MG TABLET (FP) PO SCH ×2 (11:23→22:40)
[2022-09-22] MEDS: APIXABAN 5 MG TABLET PO SCH ×2 (11:23→22:41)
[2022-09-22] MEDS: VALSARTAN 160 MG TABLET PO SCH ×2 (11:23→22:41)
[2022-09-22] MEDS: MAGNESIUM OXIDE 400 MG TABLET (FP) PO SCH ×2 (11:23→22:41)
[2022-09-22] MEDS: FUROSEMIDE 20 MG TABLET (FP) PO SCH (11:23)
[2022-09-22] MEDS ORDERED: GABAPENTIN 100 MG CAPSULE ONE (14:49)
[2022-09-22] MEDS: GABAPENTIN 100 MG CAPSULE PO SCH ×2 (14:53→22:40)
[2022-09-22] MEDS: POLYETHYLENE GLYCOL (HEALTHYLAX) 3350 17 GM PACKET PO SCH ×2 (14:53→22:40)
[2022-09-22] MEDS ORDERED: DOCUSATE SODIUM 100 MG CAPSULE (FP) PO SCH (22:00)
[2022-09-22] MEDS: ATORVASTATIN CA 10 MG TABLET (FP) PO SCH (22:40)
[2022-09-23] MEDS: morphine SULFATE 4 MG/ML VIAL IVPUSH PRN ×2 (00:52→12:17)
[2022-09-23] MEDS: CYCLOBENZAPRINE HCL 10 MG TABLET (FP) PO SCH ×3 (06:01→22:11)
[2022-09-23] MEDS: GABAPENTIN 100 MG CAPSULE PO SCH ×3 (06:02→22:10)
[2022-09-23] MEDS: POLYETHYLENE GLYCOL (HEALTHYLAX) 3350 17 GM PACKET PO SCH ×3 (06:02→22:11)
[2022-09-23] MEDS: ALLOPURINOL 100 MG TABLET (FP) PO SCH (09:03)
[2022-09-23] MEDS: APIXABAN 5 MG TABLET PO SCH ×2 (09:03→22:10)
[2022-09-23] MEDS: VALSARTAN 160 MG TABLET PO SCH ×2 (09:03→22:10)
[2022-09-23] MEDS: MAGNESIUM OXIDE 400 MG TABLET (FP) PO SCH ×2 (09:03→22:10)
[2022-09-23] MEDS: FUROSEMIDE 20 MG TABLET (FP) PO SCH (09:03)
[2022-09-23] MEDS: METOPROLOL TARTRATE 25 MG TABLET (FP) PO SCH ×2 (09:03→22:11)
[2022-09-23] MEDS: ATORVASTATIN CA 10 MG TABLET (FP) PO SCH (22:10)
[2022-09-24] MEDS: morphine SULFATE 4 MG/ML VIAL IVPUSH PRN ×2 (05:22→10:07)
[2022-09-24] MEDS: CYCLOBENZAPRINE HCL 10 MG TABLET (FP) PO SCH ×3 (05:24→22:43)
[2022-09-24] MEDS: GABAPENTIN 100 MG CAPSULE PO SCH ×3 (05:24→22:42)
[2022-09-24] MEDS: POLYETHYLENE GLYCOL (HEALTHYLAX) 3350 17 GM PACKET PO SCH ×4 (05:25→22:51)
[2022-09-24] MEDS: ALLOPURINOL 100 MG TABLET (FP) PO SCH (08:59)
[2022-09-24] MEDS: VALSARTAN 160 MG TABLET PO SCH ×2 (08:59→22:43)
[2022-09-24] MEDS: METOPROLOL TARTRATE 25 MG TABLET (FP) PO SCH ×2 (08:59→22:42)
[2022-09-24] MEDS: APIXABAN 5 MG TABLET PO SCH ×2 (08:59→22:42)
[2022-09-24] MEDS: FUROSEMIDE 20 MG TABLET (FP) PO SCH (08:59)
[2022-09-24] MEDS: MAGNESIUM OXIDE 400 MG TABLET (FP) PO SCH ×2 (08:59→22:42)
[2022-09-24] MEDS ORDERED: Methylnaltrexone Bromide 12 MG/0.6 ML KIT SQ SCH (10:00)
[2022-09-24 10:40] VITALS: RESP 18
[2022-09-24] MEDS: ATORVASTATIN CA 10 MG TABLET (FP) PO SCH (22:43)
[2022-09-25] MEDS: morphine SULFATE 4 MG/ML VIAL IVPUSH PRN (01:43)
[2022-09-25] MEDS: CYCLOBENZAPRINE HCL 10 MG TABLET (FP) PO SCH ×2 (06:45→13:50)
[2022-09-25] MEDS: POLYETHYLENE GLYCOL (HEALTHYLAX) 3350 17 GM PACKET PO SCH (06:45)
[2022-09-25] MEDS: GABAPENTIN 100 MG CAPSULE PO SCH ×2 (06:46→13:50)
[2022-09-25] MEDS: ALLOPURINOL 100 MG TABLET (FP) PO SCH (09:47)
[2022-09-25] MEDS: METOPROLOL TARTRATE 25 MG TABLET (FP) PO SCH (09:47)
[2022-09-25] MEDS: FUROSEMIDE 20 MG TABLET (FP) PO SCH (09:47)
[2022-09-25] MEDS: VALSARTAN 160 MG TABLET PO SCH (09:47)
[2022-09-25] MEDS: MAGNESIUM OXIDE 400 MG TABLET (FP) PO SCH (09:47)
[2022-09-25] MEDS: APIXABAN 5 MG TABLET PO SCH (09:47)
[2022-09-25] MEDS ORDERED: Methylnaltrexone Bromide 12 MG/0.6 ML KIT SQ SCH (10:00)
[2022-09-25 11:24] VITALS: PULSE 80
[2022-09-25] MEDS ORDERED: BISACODYL 10 MG SUPP.RECT PR ONE (12:16)
[2022-09-25 14:30] VITALS: BP 132/77; TEMP 98.8
== END 2022-09-25 20:28 | disposition home or self-care (01) ==
LOC: JER 20:29 → JERBED 23:09 → J6S 09-22 16:45
PROVIDERS: ADMIT Internal Medicine; ATTEND Family Medicine
PROC: 3E033NZ Introduction of Analgesics, Hypnotics, Sedatives into Peripheral Vein, Percutaneous Approach (ICD-10-PCS; principal; 2022-09-21)
PROC: 3E023GC Introduction of Other Therapeutic Substance into Muscle, Percutaneous Approach (ICD-10-PCS; 2022-09-21)
PROC: 3E033NZ Introduction of Analgesics, Hypnotics, Sedatives into Peripheral Vein, Percutaneous Approach (ICD-10-PCS; 2022-09-21)
PROC: 3E0337Z Introduction of Electrolytic and Water Balance Substance into Peripheral Vein, Percutaneous Approach (ICD-10-PCS; 2022-09-21)
DX: M51.24 Other intervertebral disc displacement, thoracic region (principal); I48.91 Unspecified atrial fibrillation; G89.29 Other chronic pain; E78.5 Hyperlipidemia, unspecified; R73.03 Prediabetes; N20.0 Calculus of kidney; K21.9 Gastro-esophageal reflux disease without esophagitis; I10 Essential (primary) hypertension; Z96.653 Presence of artificial knee joint, bilateral; Z90.49 Acquired absence of other specified parts of digestive tract; Z79.01 Long term (current) use of anticoagulants; K59.00 Constipation, unspecified; Z87.19 Personal history of other diseases of the digestive system
CPT/HCPCS: 36415; 71045-TC-FY; 74019-TC-FY; 80048; 80053; 83690; 83735; 84100; 84484; 85025; 85610; 85730; 93005; 93010; 94010; 96361; 96372; 96374; 96375; 96376; 97116-GP; 97162-GP; 99285-25; G0378

== ENCOUNTER 2022-09-29 08:28 | Inpatient (IN) | payer OTHER ==
[2022-09-29] MEDS ORDERED: ACETAMINOPHEN 1000 MG/100 ML BAG IVPB ONE (10:11)
[2022-09-29] MEDS ORDERED: morphine CARPU-JECT 4 MG/1 ML DISP.SYRIN IVPUSH ONE (10:11)
[2022-09-29] MEDS ORDERED: morphine SULFATE 4 MG/ML VIAL ONE (10:22)
[2022-09-29] MEDS ORDERED: ACETAMINOPHEN INJECTION 100 ML IVPB ONE (10:22)
[2022-09-29 11:00] LABS: BASO % 0.6 % (0-2.0); EOS % 2.8 % (0-4.5); HEMOGLOBIN 11.8 GM/dL (10.7-15.3); LYMPH % 16.7 % (8-40); MCH 29.5 pg (25.7-33.7); MCHC 32.8 g/dl (32.0-36.0); MEAN CELL VOLUME 89.9 fl (80-96); MEAN PLT VOLUME 7.9 fl (7.5-11.1); MONO % 7.1 % (3.8-10.2); NEUT % 72.8 % (42.8-82.8); PLATELET COUNT 274 10^3/uL (134-434); RBC 4.01 M/mm3 (3.60-5.2)
[2022-09-29 11:37] LABS: POTASSIUM 4.3 mmol/L (3.5-5.1)
[2022-09-29 11:38] LABS: CALCIUM 8.9 mg/dL (8.5-10.1)
[2022-09-29 11:39] LABS: ALBUMIN 3.3 g/dl (3.4-5.0); BLOOD UREA NITROGEN 23.1 mg/dL (7-18)
[2022-09-29 11:42] LABS: CREATININE 0.8 mg/dL (0.55-1.3)
[2022-09-29 11:44] LABS: BILIRUBIN,TOTAL 0.2 mg/dL (0.2-1); TOT PROT 6.3 g/dl (6.4-8.2)
[2022-09-29] MEDS ORDERED: KETOROLAC TROMETHAMINE 15 MG/ML VIAL IVPUSH ONE (12:01)
[2022-09-29] MEDS ORDERED: KETOROLAC TROMETHAMINE 15 MG/ML VIAL ONE (12:22)
[2022-09-29] MEDS ORDERED: TAPENTADOL HYDROCHLORIDE 75 MG TABLET PO PRN (14:32)
[2022-09-29 15:33] VITALS: BMI 40.6
[2022-09-29] MEDS: TAPENTADOL HYDROCHLORIDE 50 MG TABLET PO PRN ×2 (17:00→22:47)
[2022-09-29] MEDS: ATORVASTATIN CA 10 MG TABLET (FP) PO SCH (22:47)
[2022-09-29] MEDS: METOPROLOL TARTRATE 25 MG TABLET (FP) PO SCH (22:47)
[2022-09-29] MEDS: VALSARTAN 160 MG TABLET PO SCH (22:47)
[2022-09-29] MEDS: GABAPENTIN 100 MG CAPSULE PO SCH (22:47)
[2022-09-29] MEDS: MAGNESIUM OXIDE 400 MG TABLET (FP) PO SCH (22:47)
[2022-09-29] MEDS: APIXABAN 5 MG TABLET PO SCH (22:47)
[2022-09-29] MEDS: CYCLOBENZAPRINE HCL 5 MG TABLET PO SCH (22:47)
[2022-09-29] MEDS: POLYETHYLENE GLYCOL (HEALTHYLAX) 3350 17 GM PACKET PO SCH (22:58)
[2022-09-30] MEDS ORDERED: ACETAMINOPHEN 1000 MG/100 ML BAG IVPB ONE (00:02)
[2022-09-30] MEDS: TAPENTADOL HYDROCHLORIDE 50 MG TABLET PO PRN ×3 (04:10→21:28)
[2022-09-30] MEDS: GABAPENTIN 100 MG CAPSULE PO SCH ×3 (06:05→21:20)
[2022-09-30] MEDS: CYCLOBENZAPRINE HCL 5 MG TABLET PO SCH ×3 (06:06→21:19)
[2022-09-30] MEDS: POLYETHYLENE GLYCOL (HEALTHYLAX) 3350 17 GM PACKET PO SCH ×3 (06:06→21:20)
[2022-09-30 06:44] VITALS: RESP 18
[2022-09-30] MEDS: METOPROLOL TARTRATE 25 MG TABLET (FP) PO SCH ×2 (09:57→21:20)
[2022-09-30] MEDS: APIXABAN 5 MG TABLET PO SCH ×2 (09:57→21:19)
[2022-09-30] MEDS: VALSARTAN 160 MG TABLET PO SCH ×2 (09:57→21:19)
[2022-09-30] MEDS: MAGNESIUM OXIDE 400 MG TABLET (FP) PO SCH ×2 (09:57→21:20)
[2022-09-30] MEDS: FAMOTIDINE 20 MG TABLET PO SCH (09:57)
[2022-09-30] MEDS: PANTOPRAZOLE 40 MG TABLET PO SCH (09:58)
[2022-09-30] MEDS: ALLOPURINOL 100 MG TABLET (FP) PO SCH (09:58)
[2022-09-30 10:08] LABS: BASO % 0.5 % (0-2.0); EOS % 2.7 % (0-4.5); HEMOGLOBIN 11.6 GM/dL (10.7-15.3); MCH 29.7 pg (25.7-33.7); MCHC 32.4 g/dl (32.0-36.0); MEAN CELL VOLUME 91.6 fl (80-96); MEAN PLT VOLUME 8.2 fl (7.5-11.1); MONO % 8.2 % (3.8-10.2); NEUT % 72.6 % (42.8-82.8); PLATELET COUNT 271 10^3/uL (134-434); RBC 3.93 M/mm3 (3.60-5.2); RDW 16.3 % (11.6-15.6); WHITE BLOOD COUNT 7.5 K/mm3 (4.0-10.0)
[2022-09-30 11:10] LABS: POTASSIUM 4.2 mmol/L (3.5-5.1)
[2022-09-30 11:30] LABS: ALBUMIN 3.2 g/dl (3.4-5.0)
[2022-09-30] MEDS: DEXAMETHASONE SOD PHOSPHATE 10 MG/1 ML VIAL IVPUSH SCH ×3 (11:30→22:15)
[2022-09-30 11:31] LABS: BLOOD UREA NITROGEN 26.9 mg/dL (7-18); CALCIUM 8.7 mg/dL (8.5-10.1)
[2022-09-30 11:34] LABS: CREATININE 0.9 mg/dL (0.55-1.3)
[2022-09-30 11:35] LABS: BILIRUBIN,TOTAL 0.5 mg/dL (0.2-1); TOT PROT 6.5 g/dl (6.4-8.2)
[2022-09-30] MEDS: ATORVASTATIN CA 10 MG TABLET (FP) PO SCH (21:20)
[2022-10-01] MEDS: DEXAMETHASONE SOD PHOSPHATE 10 MG/1 ML VIAL IVPUSH SCH ×4 (05:02→22:59)
[2022-10-01] MEDS: GABAPENTIN 100 MG CAPSULE PO SCH ×3 (06:47→22:20)
[2022-10-01] MEDS: POLYETHYLENE GLYCOL (HEALTHYLAX) 3350 17 GM PACKET PO SCH ×3 (06:47→22:22)
[2022-10-01] MEDS: CYCLOBENZAPRINE HCL 5 MG TABLET PO SCH ×3 (06:47→22:20)
[2022-10-01] MEDS: METOPROLOL TARTRATE 25 MG TABLET (FP) PO SCH ×2 (09:52→22:20)
[2022-10-01] MEDS: FAMOTIDINE 20 MG TABLET PO SCH (09:52)
[2022-10-01] MEDS: ALLOPURINOL 100 MG TABLET (FP) PO SCH (09:52)
[2022-10-01] MEDS: MAGNESIUM OXIDE 400 MG TABLET (FP) PO SCH ×2 (09:52→22:20)
[2022-10-01] MEDS: PANTOPRAZOLE 40 MG TABLET PO SCH (09:53)
[2022-10-01] MEDS: VALSARTAN 160 MG TABLET PO SCH ×2 (09:53→22:20)
[2022-10-01] MEDS: APIXABAN 5 MG TABLET PO SCH ×2 (09:53→22:20)
[2022-10-01] MEDS: Methylnaltrexone Bromide 12 MG/0.6 ML KIT SQ SCH (10:42)
[2022-10-01] MEDS: TAPENTADOL HYDROCHLORIDE 50 MG TABLET PO PRN (19:49)
[2022-10-01] MEDS: ATORVASTATIN CA 10 MG TABLET (FP) PO SCH (22:20)
[2022-10-02] MEDS: TAPENTADOL HYDROCHLORIDE 50 MG TABLET PO PRN ×3 (02:36→20:05)
[2022-10-02] MEDS: DEXAMETHASONE SOD PHOSPHATE 10 MG/1 ML VIAL IVPUSH SCH ×3 (02:38→23:28)
[2022-10-02] MEDS ORDERED: ACETAMINOPHEN 1000 MG/100 ML BAG IVPB ONE (04:41)
[2022-10-02] MEDS: GABAPENTIN 100 MG CAPSULE PO SCH (06:03)
[2022-10-02] MEDS: POLYETHYLENE GLYCOL (HEALTHYLAX) 3350 17 GM PACKET PO SCH ×3 (06:03→23:13)
[2022-10-02] MEDS: CYCLOBENZAPRINE HCL 5 MG TABLET PO SCH ×3 (06:03→23:12)
[2022-10-02] MEDS: ALLOPURINOL 100 MG TABLET (FP) PO SCH (09:05)
[2022-10-02] MEDS: MAGNESIUM OXIDE 400 MG TABLET (FP) PO SCH ×2 (09:05→23:13)
[2022-10-02] MEDS: PANTOPRAZOLE 40 MG TABLET PO SCH (09:06)
[2022-10-02] MEDS: VALSARTAN 160 MG TABLET PO SCH ×2 (09:06→23:12)
[2022-10-02] MEDS: FAMOTIDINE 20 MG TABLET PO SCH (09:06)
[2022-10-02] MEDS: METOPROLOL TARTRATE 25 MG TABLET (FP) PO SCH ×2 (09:06→23:13)
[2022-10-02] MEDS: APIXABAN 5 MG TABLET PO SCH ×2 (09:06→23:13)
[2022-10-02] MEDS ORDERED: FUROSEMIDE 40 MG/4 ML INJECTABLE VIAL IVPUSH ONE (10:07)
[2022-10-02 13:32] LABS: HEMATOCRIT 35.7 % (32.4-45.2); HEMOGLOBIN 11.8 GM/dL (10.7-15.3); MCH 29.7 pg (25.7-33.7); MCHC 33.1 g/dl (32.0-36.0); MEAN CELL VOLUME 89.5 fl (80-96); MEAN PLT VOLUME 8.3 fl (7.5-11.1); PLATELET COUNT 293 10^3/uL (134-434); RBC 3.99 M/mm3 (3.60-5.2); RDW 16.4 % (11.6-15.6); WHITE BLOOD COUNT 14.5 K/mm3 (4.0-10.0)
[2022-10-02 13:58] LABS: POTASSIUM 4.2 mmol/L (3.5-5.1)
[2022-10-02 14:00] LABS: ALBUMIN 3.1 g/dl (3.4-5.0); CALCIUM 8.3 mg/dL (8.5-10.1)
[2022-10-02 14:01] LABS: BLOOD UREA NITROGEN 31.7 mg/dL (7-18)
[2022-10-02 14:03] LABS: CREATININE 0.9 mg/dL (0.55-1.3)
[2022-10-02 14:05] LABS: BILIRUBIN,TOTAL 0.2 mg/dL (0.2-1); TOT PROT 6.3 g/dl (6.4-8.2)
[2022-10-02 14:08] LABS: N-TERMINAL BNP 684.7 pg/ml (5-450)
[2022-10-02] MEDS: GABAPENTIN 300 MG CAPSULE PO SCH ×2 (14:32→23:14)
[2022-10-02 14:56] LABS: ANISOCYTOSIS 2+; MACROCYTOSIS 0; OVALOCYTE 2+; TEAR DROP CELLS 2+
[2022-10-02] MEDS: ATORVASTATIN CA 10 MG TABLET (FP) PO SCH (23:13)
[2022-10-03] MEDS: TAPENTADOL HYDROCHLORIDE 50 MG TABLET PO PRN ×4 (01:44→20:34)
[2022-10-03] MEDS: POLYETHYLENE GLYCOL (HEALTHYLAX) 3350 17 GM PACKET PO SCH ×3 (06:34→21:22)
[2022-10-03] MEDS: CYCLOBENZAPRINE HCL 5 MG TABLET PO SCH ×3 (06:34→21:21)
[2022-10-03] MEDS: GABAPENTIN 300 MG CAPSULE PO SCH ×3 (06:34→21:22)
[2022-10-03] MEDS: PANTOPRAZOLE 40 MG TABLET PO SCH (10:52)
[2022-10-03] MEDS: VALSARTAN 160 MG TABLET PO SCH ×2 (10:52→21:22)
[2022-10-03] MEDS: METOPROLOL TARTRATE 25 MG TABLET (FP) PO SCH ×2 (10:52→21:22)
[2022-10-03] MEDS: APIXABAN 5 MG TABLET PO SCH ×2 (10:52→21:22)
[2022-10-03] MEDS: ALLOPURINOL 100 MG TABLET (FP) PO SCH (10:52)
[2022-10-03] MEDS: MAGNESIUM OXIDE 400 MG TABLET (FP) PO SCH ×2 (10:52→21:22)
[2022-10-03] MEDS: FAMOTIDINE 20 MG TABLET PO SCH (10:53)
[2022-10-03] MEDS: DEXAMETHASONE SOD PHOSPHATE 10 MG/1 ML VIAL IVPUSH SCH ×2 (10:53→21:22)
[2022-10-03] MEDS: Methylnaltrexone Bromide 12 MG/0.6 ML KIT SQ SCH (12:47)
[2022-10-03] MEDS: ATORVASTATIN CA 10 MG TABLET (FP) PO SCH (21:22)
[2022-10-04] MEDS: TAPENTADOL HYDROCHLORIDE 50 MG TABLET PO PRN ×2 (02:16→10:05)
[2022-10-04] MEDS: GABAPENTIN 300 MG CAPSULE PO SCH ×3 (06:34→22:44)
[2022-10-04] MEDS: POLYETHYLENE GLYCOL (HEALTHYLAX) 3350 17 GM PACKET PO SCH ×3 (06:34→22:46)
[2022-10-04] MEDS: CYCLOBENZAPRINE HCL 5 MG TABLET PO SCH ×3 (06:34→22:44)
[2022-10-04] MEDS: VALSARTAN 160 MG TABLET PO SCH ×2 (10:04→22:45)
[2022-10-04] MEDS: PANTOPRAZOLE 40 MG TABLET PO SCH (10:04)
[2022-10-04] MEDS: APIXABAN 5 MG TABLET PO SCH ×2 (10:04→22:46)
[2022-10-04] MEDS: METOPROLOL TARTRATE 25 MG TABLET (FP) PO SCH ×2 (10:04→22:45)
[2022-10-04] MEDS: ALLOPURINOL 100 MG TABLET (FP) PO SCH (10:04)
[2022-10-04] MEDS: MAGNESIUM OXIDE 400 MG TABLET (FP) PO SCH ×2 (10:04→22:46)
[2022-10-04] MEDS: FAMOTIDINE 20 MG TABLET PO SCH (10:04)
[2022-10-04] MEDS: DEXAMETHASONE SOD PHOSPHATE 10 MG/1 ML VIAL IVPUSH SCH ×2 (10:05→22:44)
[2022-10-04] MEDS: ATORVASTATIN CA 10 MG TABLET (FP) PO SCH (22:45)
[2022-10-05] MEDS: CYCLOBENZAPRINE HCL 5 MG TABLET PO SCH ×3 (06:36→22:30)
[2022-10-05] MEDS: POLYETHYLENE GLYCOL (HEALTHYLAX) 3350 17 GM PACKET PO SCH ×3 (06:36→22:32)
[2022-10-05] MEDS: GABAPENTIN 300 MG CAPSULE PO SCH ×3 (06:36→22:30)
[2022-10-05 10:18] LABS: HEMATOCRIT 38.1 % (32.4-45.2); HEMOGLOBIN 12.5 GM/dL (10.7-15.3); MCH 29.6 pg (25.7-33.7); MCHC 32.9 g/dl (32.0-36.0); MEAN CELL VOLUME 89.9 fl (80-96); MEAN PLT VOLUME 8.3 fl (7.5-11.1); PLATELET COUNT 284 10^3/uL (134-434); RBC 4.24 M/mm3 (3.60-5.2); RDW 16.3 % (11.6-15.6); WHITE BLOOD COUNT 11.5 K/mm3 (4.0-10.0)
[2022-10-05] MEDS: ALLOPURINOL 100 MG TABLET (FP) PO SCH (10:24)
[2022-10-05] MEDS: MAGNESIUM OXIDE 400 MG TABLET (FP) PO SCH ×2 (10:24→22:31)
[2022-10-05] MEDS: PANTOPRAZOLE 40 MG TABLET PO SCH (10:24)
[2022-10-05] MEDS: APIXABAN 5 MG TABLET PO SCH ×2 (10:24→22:31)
[2022-10-05] MEDS: VALSARTAN 160 MG TABLET PO SCH ×2 (10:26→22:32)
[2022-10-05] MEDS: FAMOTIDINE 20 MG TABLET PO SCH (10:26)
[2022-10-05] MEDS: METOPROLOL TARTRATE 25 MG TABLET (FP) PO SCH ×2 (10:26→22:31)
[2022-10-05 10:33] LABS: BLOOD UREA NITROGEN 40.2 mg/dL (7-18); CALCIUM 8.2 mg/dL (8.5-10.1)
[2022-10-05 10:34] LABS: ALBUMIN 2.8 g/dl (3.4-5.0)
[2022-10-05 10:38] LABS: BILIRUBIN,TOTAL 0.4 mg/dL (0.2-1)
[2022-10-05 10:39] LABS: TOT PROT 5.6 g/dl (6.4-8.2)
[2022-10-05] MEDS: DEXAMETHASONE SOD PHOSPHATE 10 MG/1 ML VIAL IVPUSH SCH (10:47)
[2022-10-05] MEDS: Methylnaltrexone Bromide 12 MG/0.6 ML KIT SQ SCH (11:23)
[2022-10-05] MEDS ORDERED: FUROSEMIDE 40 MG/4 ML INJECTABLE VIAL IVPUSH ONE (13:09)
[2022-10-05] MEDS: TAPENTADOL HYDROCHLORIDE 50 MG TABLET PO PRN (22:26)
[2022-10-05] MEDS: ATORVASTATIN CA 10 MG TABLET (FP) PO SCH (22:31)
[2022-10-06] MEDS: CYCLOBENZAPRINE HCL 5 MG TABLET PO SCH ×2 (06:41→13:34)
[2022-10-06] MEDS: GABAPENTIN 300 MG CAPSULE PO SCH ×2 (06:41→13:34)
[2022-10-06] MEDS: POLYETHYLENE GLYCOL (HEALTHYLAX) 3350 17 GM PACKET PO SCH ×2 (06:41→13:35)
[2022-10-06] MEDS: APIXABAN 5 MG TABLET PO SCH (09:49)
[2022-10-06] MEDS: ALLOPURINOL 100 MG TABLET (FP) PO SCH (09:49)
[2022-10-06] MEDS: PANTOPRAZOLE 40 MG TABLET PO SCH (09:49)
[2022-10-06] MEDS: FAMOTIDINE 20 MG TABLET PO SCH (09:49)
[2022-10-06] MEDS: METOPROLOL TARTRATE 25 MG TABLET (FP) PO SCH (09:49)
[2022-10-06] MEDS: MAGNESIUM OXIDE 400 MG TABLET (FP) PO SCH (09:49)
[2022-10-06] MEDS: VALSARTAN 160 MG TABLET PO SCH (09:49)
[2022-10-06] MEDS ORDERED: predniSONE 20 MG TABLET (UD) PO SCH (10:00)
[2022-10-06] MEDS ORDERED: FUROSEMIDE 40 MG/4 ML INJECTABLE VIAL IVPUSH ONE (13:00)
[2022-10-06 14:15] VITALS: BP 134/58; PULSE 78; TEMP 98.3
== END 2022-10-06 15:17 | disposition home or self-care (01) | DRG 552 ==
LOC: JER 08:28 → JERBED 12:14 → J5S 14:50 → OBSVTOIN 10-05 14:31
PROVIDERS: ADMIT Family Medicine; ATTEND Family Medicine
DX: M54.50 Low back pain, unspecified (principal); Z68.41 Body mass index [BMI] 40.0-44.9, adult; I10 Essential (primary) hypertension; E78.5 Hyperlipidemia, unspecified; I48.91 Unspecified atrial fibrillation; G89.29 Other chronic pain; E66.01 Morbid (severe) obesity due to excess calories; R60.9 Edema, unspecified; K21.9 Gastro-esophageal reflux disease without esophagitis; K44.9 Diaphragmatic hernia without obstruction or gangrene; Z96.653 Presence of artificial knee joint, bilateral; K59.00 Constipation, unspecified; K57.90 Diverticulosis of intestine, part unspecified, without perforation or abscess without bleeding; M51.34 Other intervertebral disc degeneration, thoracic region; R09.02 Hypoxemia; G47.33 Obstructive sleep apnea (adult) (pediatric)
CPT/HCPCS: 36415; 71045-TC-FY; 80053; 82962; 83735; 83880; 84443; 84484; 85025; 85027; 93005; 93010; 93306-TC; 93970-TC; 99285-25; G0378; J1100

== ENCOUNTER 2022-10-21 16:20 | Emergency (ER) | payer OTHER ==
[2022-10-21 16:45] VITALS: TEMP 97.9; BMI 33.3
[2022-10-21] MEDS ORDERED: KETOROLAC TROMETHAMINE 15 MG/ML VIAL IVPUSH ONE (17:05)
[2022-10-21] MEDS ORDERED: ACETAMINOPHEN 1000 MG/100 ML BAG IVPB ONE (17:05)
[2022-10-21] MEDS ORDERED: LIDOCAINE 5% TOPICAL PATCH TP ONE (17:05)
[2022-10-21] MEDS ORDERED: KETOROLAC TROMETHAMINE 15 MG/ML VIAL ONE (17:18)
[2022-10-21] MEDS ORDERED: LIDOCAINE 5% TOPICAL PATCH ONE (17:18)
[2022-10-21] MEDS ORDERED: ACETAMINOPHEN INJECTION 100 ML IVPB ONE (17:18)
[2022-10-21 17:40] LABS: BASO % 0.4 % (0-2.0); HEMATOCRIT 39.1 % (32.4-45.2); HEMOGLOBIN 12.9 GM/dL (10.7-15.3); LYMPH % 23.1 % (8-40); MCH 29.3 pg (25.7-33.7); MCHC 32.8 g/dl (32.0-36.0); MEAN CELL VOLUME 89.3 fl (80-96); MEAN PLT VOLUME 7.9 fl (7.5-11.1); MONO % 8.4 % (3.8-10.2); NEUT % 67.1 % (42.8-82.8); PLATELET COUNT 335 10^3/uL (134-434); RBC 4.38 M/mm3 (3.60-5.2); RDW 15.4 % (11.6-15.6)
[2022-10-21 18:15] LABS: POTASSIUM 3.9 mmol/L (3.5-5.1)
[2022-10-21 18:17] LABS: CALCIUM 8.8 mg/dL (8.5-10.1)
[2022-10-21 18:18] LABS: ALBUMIN 3.5 g/dl (3.4-5.0); BLOOD UREA NITROGEN 19.8 mg/dL (7-18); MAGNESIUM 1.9 mg/dL (1.8-2.4)
[2022-10-21 18:21] LABS: CREATININE 0.9 mg/dL (0.55-1.3)
[2022-10-21 18:22] LABS: TOT PROT 6.9 g/dl (6.4-8.2)
[2022-10-21 18:23] LABS: BILIRUBIN,TOTAL 0.6 mg/dL (0.2-1)
[2022-10-21 18:24] LABS: ACTIVATED PTT 34.1 SECONDS (25.2-36.5); INR 1.08 (0.83-1.09); PROTHROMBIN TIME (PATIENT) 12.5 SEC (9.7-13.0)
[2022-10-21 18:26] LABS: N-TERMINAL BNP 166.9 pg/ml (5-450)
[2022-10-21 20:02] VITALS: BP 131/91; PULSE 90; RESP 20
[2022-10-21] MEDS ORDERED: LIDOCAINE PATCH REMOVAL MC SCH (22:00)
== END 2022-10-22 00:30 | disposition home or self-care (01) ==
LOC: JER 16:20
PROC: 3E033NZ Introduction of Analgesics, Hypnotics, Sedatives into Peripheral Vein, Percutaneous Approach (ICD-10-PCS; principal; 2022-10-21)
PROC: 3E033GC Introduction of Other Therapeutic Substance into Peripheral Vein, Percutaneous Approach (ICD-10-PCS; 2022-10-21)
DX: R07.89 Other chest pain (principal); M54.50 Low back pain, unspecified; G89.29 Other chronic pain; Z20.822 Contact with and (suspected) exposure to COVID-19
CPT/HCPCS: 0241U-QW; 36415; 71045-TC-FY; 80053; 83735; 83880; 84484; 85025; 85610; 85730; 93005; 93010; 93970-TC; 99285-25

== ENCOUNTER 2022-10-23 18:29 | Emergency (ER) | payer OTHER ==
[2022-10-23 18:37] VITALS: BP 146/65; PULSE 104; RESP 18; BMI 38.2
[2022-10-23] MEDS ORDERED: METHOCARBAMOL 500 MG TABLET PO ONE (19:31)
[2022-10-23] MEDS ORDERED: ACETAMINOPHEN 500 MG TABLET (FP) PO ONE (19:34)
[2022-10-23] MEDS ORDERED: KETOROLAC TROMETHAMINE 30 MG/1 ML VIAL IM ONE (19:35)
[2022-10-23 19:44] VITALS: TEMP 99.9
[2022-10-23] MEDS ORDERED: KETOROLAC TROMETHAMINE 30 MG/1 ML VIAL ONE (19:44)
[2022-10-23] MEDS ORDERED: ACETAMINOPHEN 325 MG TABLET (FP) ONE (19:44)
[2022-10-23] MEDS ORDERED: METHOCARBAMOL 500 MG TABLET ONE (19:44)
[2022-10-23] MEDS ORDERED: LIDOCAINE 5% TOPICAL PATCH TP ONE (20:13)
[2022-10-23] MEDS ORDERED: LIDOCAINE 5% TOPICAL PATCH ONE (20:16)
[2022-10-23] MEDS ORDERED: LIDOCAINE PATCH REMOVAL MC SCH (22:00)
== END 2022-10-23 23:11 | disposition home or self-care (01) ==
LOC: JER 18:29
PROC: 3E0233Z Introduction of Anti-inflammatory into Muscle, Percutaneous Approach (ICD-10-PCS; principal; 2022-10-23)
DX: M54.50 Low back pain, unspecified (principal); G89.29 Other chronic pain; M54.6 Pain in thoracic spine; R00.0 Tachycardia, unspecified
CPT/HCPCS: 99284-25

== ENCOUNTER 2023-03-22 12:44 | Emergency (ER) | payer OTHER ==
[2023-03-22 13:20] VITALS: BMI 33.3
[2023-03-22] MEDS ORDERED: KETOROLAC TROMETHAMINE 15 MG/ML VIAL ONE (17:11)
[2023-03-22 17:18] LABS: BASO % 0.7 % (0-2.0); EOS % 0.8 % (0-4.5); HEMATOCRIT 39.8 % (32.4-45.2); HEMOGLOBIN 13.3 GM/dL (10.7-15.3); LYMPH % 21.8 % (8-40); MCH 29.3 pg (25.7-33.7); MCHC 33.5 g/dl (32.0-36.0); MEAN CELL VOLUME 87.3 fl (80-96); MEAN PLT VOLUME 7.5 fl (7.5-11.1); MONO % 7.3 % (3.8-10.2); NEUT % 69.4 % (42.8-82.8); PLATELET COUNT 320 10^3/uL (134-434); RBC 4.56 M/mm3 (3.60-5.2); RDW 15.5 % (11.6-15.6); WHITE BLOOD COUNT 9.7 K/mm3 (4.0-10.0)
[2023-03-22] MEDS: KETOROLAC TROMETHAMINE 15 MG/ML VIAL IVPUSH ONE (17:24)
[2023-03-22] MEDS ORDERED: LIDOCAINE 4% PATCH TP ONE (17:25)
[2023-03-22] MEDS: LIDOCAINE 5% TOPICAL PATCH TP ONE (17:28)
[2023-03-22 17:45] LABS: CALCIUM 8.9 mg/dL (8.5-10.1); POTASSIUM 4.3 mmol/L (3.5-5.1)
[2023-03-22 17:46] LABS: ALBUMIN 3.5 g/dl (3.4-5.0); BLOOD UREA NITROGEN 34.2 mg/dL (7-18)
[2023-03-22 17:50] LABS: CREATININE 0.8 mg/dL (0.55-1.3)
[2023-03-22 17:51] LABS: BILIRUBIN,TOTAL 0.3 mg/dL (0.2-1)
[2023-03-22] MEDS ORDERED: morphine SULFATE 4 MG/ML VIAL ONE (18:34)
[2023-03-22] MEDS ORDERED: diazePAM 2 MG TABLET ONE (18:35)
[2023-03-22] MEDS: diazePAM 2 MG TABLET PO ONE (18:47)
[2023-03-22] MEDS: morphine CARPU-JECT 4 MG/1 ML DISP.SYRIN IVPUSH ONE (18:47)
[2023-03-22 20:32] VITALS: BP 122/74; PULSE 76; RESP 19; TEMP 97.9
[2023-03-22] MEDS ORDERED: LIDOCAINE PATCH REMOVAL MC SCH (22:00)
== END 2023-03-22 20:32 | disposition home or self-care (01) ==
LOC: JER 12:44
PROC: 3E033GC Introduction of Other Therapeutic Substance into Peripheral Vein, Percutaneous Approach (ICD-10-PCS; principal; 2023-03-22)
PROC: 3E0333Z Introduction of Anti-inflammatory into Peripheral Vein, Percutaneous Approach (ICD-10-PCS; 2023-03-22)
DX: R07.89 Other chest pain (principal); M54.9 Dorsalgia, unspecified; G89.29 Other chronic pain; Z20.822 Contact with and (suspected) exposure to COVID-19
CPT/HCPCS: 0241U-QW; 36415; 71045-TC-FY; 80053; 84484; 85025; 93005; 93010; 96374; 96375; 99285-25

== ENCOUNTER 2023-03-27 15:49 | Inpatient (IN) | payer MEDICARE, OTHER ==
[2023-03-27] MEDS ORDERED: morphine SULFATE 4 MG/ML VIAL ONE ×2 (16:24→22:19)
[2023-03-27] MEDS: morphine CARPU-JECT 4 MG/1 ML DISP.SYRIN IVPUSH ONE (16:35)
[2023-03-27 16:40] LABS: BASO % 0.6 % (0-2.0); EOS % 0.3 % (0-4.5); HEMATOCRIT 40.2 % (32.4-45.2); HEMOGLOBIN 13.2 GM/dL (10.7-15.3); LYMPH % 21.1 % (8-40); MCH 28.7 pg (25.7-33.7); MCHC 32.9 g/dl (32.0-36.0); MEAN CELL VOLUME 87.3 fl (80-96); MEAN PLT VOLUME 8.1 fl (7.5-11.1); MONO % 7.4 % (3.8-10.2); NEUT % 70.6 % (42.8-82.8); PLATELET COUNT 340 10^3/uL (134-434); RBC 4.61 M/mm3 (3.60-5.2); RDW 15.5 % (11.6-15.6); WHITE BLOOD COUNT 13.3 K/mm3 (4.0-10.0)
[2023-03-27 17:00] LABS: POTASSIUM 4.1 mmol/L (3.5-5.1)
[2023-03-27 17:02] LABS: ALBUMIN 3.7 g/dl (3.4-5.0); BLOOD UREA NITROGEN 41.2 mg/dL (7-18); CALCIUM 9.6 mg/dL (8.5-10.1)
[2023-03-27 17:07] LABS: BILIRUBIN,TOTAL 0.5 mg/dL (0.2-1); TOT PROT 7.3 g/dl (6.4-8.2)
[2023-03-27] MEDS ORDERED: HYDROmorphone HCl 2 MG/ML VIAL ONE (17:34)
[2023-03-27] MEDS: HYDROmorphone HCl 2 MG/ML VIAL IVPUSH ONE (17:37)
[2023-03-27] MEDS ORDERED: KETOROLAC TROMETHAMINE 15 MG/ML VIAL ONE (21:12)
[2023-03-27] MEDS: KETOROLAC TROMETHAMINE 15 MG/ML VIAL IVPUSH ONE (21:15)
[2023-03-28] MEDS ORDERED: morphine SULFATE 4 MG/ML VIAL ONE (02:02)
[2023-03-28] MEDS: morphine SULFATE 4 MG/ML VIAL IVPUSH PRN (02:07)
[2023-03-28] MEDS ORDERED: LIDOCAINE 4% PATCH TP ONE (02:17)
[2023-03-28] MEDS: LIDOCAINE 5% TOPICAL PATCH TP ONE (02:19)
[2023-03-28] MEDS: LIDOCAINE 4% PATCH TP ONE (02:29)
[2023-03-28] MEDS: HYDROmorphone HCl 2 MG/ML VIAL IVPUSH ONE (03:35)
[2023-03-28 06:47] LABS: BASO % 0.1 % (0-2.0); HEMOGLOBIN 12.4 GM/dL (10.7-15.3); LYMPH % 9.4 % (8-40); MCH 28.8 pg (25.7-33.7); MCHC 32.7 g/dl (32.0-36.0); MEAN CELL VOLUME 87.9 fl (80-96); MEAN PLT VOLUME 8.1 fl (7.5-11.1); MONO % 6.1 % (3.8-10.2); NEUT % 84.4 % (42.8-82.8); PLATELET COUNT 278 10^3/uL (134-434); RBC 4.32 M/mm3 (3.60-5.2); RDW 15.3 % (11.6-15.6); WHITE BLOOD COUNT 11.6 K/mm3 (4.0-10.0)
[2023-03-28 07:03] LABS: POTASSIUM 4.3 mmol/L (3.5-5.1)
[2023-03-28 07:05] LABS: BLOOD UREA NITROGEN 40.3 mg/dL (7-18)
[2023-03-28 07:08] LABS: CREATININE 1.2 mg/dL (0.55-1.3)
[2023-03-28] MEDS ORDERED: DEXAMETHASONE SOD PHOSPHATE 10 MG/1 ML VIAL ONE (09:35)
[2023-03-28] MEDS ORDERED: VALSARTAN 80 MG TABLET ONE (09:40)
[2023-03-28] MEDS: DEXAMETHASONE SOD PHOSPHATE 10 MG/1 ML VIAL IM ONE (09:49)
[2023-03-28] MEDS: VALSARTAN 160 MG TABLET PO SCH (10:12)
[2023-03-28 11:11] VITALS: BMI 37.9
[2023-03-28 13:04] LABS: URINE APPEARANCE CLEAR; URINE BILIRUBIN NEGATIVE (NEGATIVE); URINE COLOR YELLOW; URINE GLUCOSE (UA) NEGATIVE (NEGATIVE); URINE KETONE NEGATIVE (NEGATIVE); URINE LEUK ESTERASE NEGATIVE (NEGATIVE); URINE NITRITE NEGATIVE (NEGATIVE); URINE PROTEIN NEGATIVE (NEGATIVE); URINE UROBILINOGEN 0.2 mg/dL (0.2-1.0)
[2023-03-28] MEDS: LIDOCAINE PATCH REMOVAL MC ONE (14:57)
[2023-03-28] MEDS: ATORVASTATIN CA 10 MG TABLET (FP) PO SCH (22:04)
[2023-03-28] MEDS: TOPIRAMATE 25 MG TABLET PO SCH (22:04)
[2023-03-28] MEDS: PRAMIPEXOLE DIHYDROCHLORIDE 0.125 MG TABLET PO SCH (23:26)
[2023-03-30] MEDS: LIDOCAINE 4% PATCH TP SCH (13:10)
[2023-03-30] MEDS: DEXAMETHASONE SOD PHOSPHATE 10 MG/1 ML VIAL IVPUSH SCH (13:11)
[2023-03-30] MEDS ORDERED: INSULIN (NOVOLOG) ASPART 100 UNITS/ML 10ML VIAL ONE (18:00)
[2023-03-30] MEDS: INSULIN (NOVOLOG) ASPART 100 UNITS/ML 10ML VIAL SQ SCH (18:08)
[2023-03-30] MEDS: LIDOCAINE PATCH REMOVAL MC SCH (21:53)
[2023-03-31] MEDS: POLYETHYLENE GLYCOL (HEALTHYLAX) 3350 17 GM PACKET PO SCH (12:09)
[2023-03-31] MEDS: oxyCODONE HCL 5 MG TABLET PO PRN (18:35)
[2023-04-01] MEDS ORDERED: INSULIN (NOVOLOG) ASPART 100 UNITS/ML 10ML VIAL ONE (06:41)
[2023-04-01] MEDS ORDERED: CYCLOBENZAPRINE HCL 10 MG TABLET (FP) PO PRN (08:50)
[2023-04-01] MEDS: CYCLOBENZAPRINE HCL 10 MG TABLET (FP) PO SCH (09:58)
[2023-04-01] MEDS: FUROSEMIDE 40 MG/4 ML INJECTABLE VIAL IVPUSH ONE (17:42)
[2023-04-01] MEDS: PRAMIPEXOLE DIHYDROCHLORIDE 0.25 MG TABLET PO SCH (21:48)
[2023-04-01] MEDS: TOPIRAMATE 25 MG TABLET PO SCH (21:48)
[2023-04-02] MEDS: ENOXAPARIN NA (PORCINE) 80 MG/0.8 ML DISP.SYRIN SQ SCH (08:56)
[2023-04-02 09:20] LABS: HEMATOCRIT 39.9 % (32.4-45.2); HEMOGLOBIN 13.4 GM/dL (10.7-15.3); MCH 29.6 pg (25.7-33.7); MCHC 33.6 g/dl (32.0-36.0); MEAN CELL VOLUME 87.9 fl (80-96); MEAN PLT VOLUME 8.2 fl (7.5-11.1); PLATELET COUNT 280 10^3/uL (134-434); RBC 4.54 M/mm3 (3.60-5.2); WHITE BLOOD COUNT 10.7 K/mm3 (4.0-10.0)
[2023-04-02] MEDS: oxyCODONE HCL 5 MG TABLET PO PRN (09:28)
[2023-04-02 09:42] LABS: POTASSIUM 4.1 mmol/L (3.5-5.1)
[2023-04-02 09:44] LABS: BLOOD UREA NITROGEN 45.1 mg/dL (7-18); CALCIUM 8.5 mg/dL (8.5-10.1)
[2023-04-02 09:47] LABS: CREATININE 1.1 mg/dL (0.55-1.3)
[2023-04-02 09:49] LABS: BILIRUBIN,TOTAL 0.4 mg/dL (0.2-1); TOT PROT 5.7 g/dl (6.4-8.2)
[2023-04-02 10:05] LABS: ANISOCYTOSIS 0; MACROCYTOSIS 0
[2023-04-02] MEDS: FUROSEMIDE 40 MG/4 ML INJECTABLE VIAL IVPUSH SCH (11:44)
[2023-04-03 11:05] VITALS: BP 129/68; PULSE 112; RESP 18; TEMP 98.4
== END 2023-04-03 16:06 | disposition home or self-care (01) | DRG 552 ==
LOC: JER 15:49 → JERBED 21:03 → J7W 03-28 10:22 → OBSVTOIN 03-31 16:54
PROVIDERS: ADMIT Internal Medicine; ATTEND Family Medicine
DX: M54.9 Dorsalgia, unspecified (principal); I50.30 Unspecified diastolic (congestive) heart failure; F11.20 Opioid dependence, uncomplicated; I25.10 Atherosclerotic heart disease of native coronary artery without angina pectoris; E78.5 Hyperlipidemia, unspecified; I48.91 Unspecified atrial fibrillation; K21.9 Gastro-esophageal reflux disease without esophagitis; Z86.16 Personal history of COVID-19; G47.00 Insomnia, unspecified; I11.0 Hypertensive heart disease with heart failure; G25.81 Restless legs syndrome
CPT/HCPCS: 36415; 71045-TC-FY; 80048; 80053; 81003; 82962; 83735; 83880; 84100; 84484; 85025; 93005; 93010; 93970-TC; 99285-25; G0378; J1100

== ENCOUNTER 2023-04-09 03:43 | Day surgery (SDC) | payer OTHER ==
[2023-04-08 08:54] VITALS: BMI 38.2
[2023-04-09] MEDS ORDERED: LIDOCAINE HCL 1%, 10 MG/ML (20ML VIAL) ONE (07:22)
[2023-04-09] MEDS ORDERED: LIDOCAINE HCL/PF 2% SDV 5ML VIAL ONE (08:39)
[2023-04-09] MEDS ORDERED: LIDOCAINE HCL/PF 1% SDV 5ML VIAL ONE (08:39)
[2023-04-09] MEDS: LIDOCAINE HCL 1% PRESERVATIVE FREE - 30ML VIAL IJ ONE (08:42)
[2023-04-09 09:12] VITALS: RESP 18
[2023-04-09 09:55] VITALS: BP 142/75; PULSE 77; TEMP 98
== END 2023-04-09 09:50 | disposition home or self-care (01) ==
LOC: JASU-SURG 03:43
PROVIDERS: ATTEND Pain Medicine Pain Medicine
PROC: 01HY3MZ Insertion of Neurostimulator Lead into Peripheral Nerve, Percutaneous Approach (ICD-10-PCS; principal; 2023-04-09 09:30)
DX: G89.4 Chronic pain syndrome (principal)
CPT/HCPCS: 64555; C1778; 76000-TC-FY

== ENCOUNTER 2023-04-19 20:36 | Observation (INO) | payer MEDICARE, OTHER ==
[2023-04-19 20:40] VITALS: BMI 38.2
[2023-04-19] MEDS ORDERED: ACETAMINOPHEN INJECTION 100 ML IVPB ONE (21:21)
[2023-04-19] MEDS: ACETAMINOPHEN 1000 MG/100 ML BAG IVPB ONE (21:44)
[2023-04-19 21:48] LABS: BASO % 0.6 % (0-2.0); EOS % 1.3 % (0-4.5); HEMATOCRIT 39.1 % (32.4-45.2); HEMOGLOBIN 13.2 GM/dL (10.7-15.3); LYMPH % 20.3 % (8-40); MCH 29.7 pg (25.7-33.7); MCHC 33.9 g/dl (32.0-36.0); MEAN CELL VOLUME 87.8 fl (80-96); MEAN PLT VOLUME 7.5 fl (7.5-11.1); NEUT % 69.8 % (42.8-82.8); PLATELET COUNT 293 10^3/uL (134-434); RBC 4.45 M/mm3 (3.60-5.2); RDW 15.2 % (11.6-15.6); WHITE BLOOD COUNT 7.8 K/mm3 (4.0-10.0)
[2023-04-19 21:51] LABS: INR 1.24 (0.83-1.09); PROTHROMBIN TIME (PATIENT) 14.4 SEC (9.7-13.0)
[2023-04-19 21:53] LABS: ACTIVATED PTT 36.4 SECONDS (25.2-36.5)
[2023-04-19 22:48] LABS: POTASSIUM 3.6 mmol/L (3.5-5.1)
[2023-04-19 22:50] LABS: ALBUMIN 3.3 g/dl (3.4-5.0); BLOOD UREA NITROGEN 21.8 mg/dL (7-18); CALCIUM 8.5 mg/dL (8.5-10.1)
[2023-04-19 22:55] LABS: BILIRUBIN,TOTAL 0.4 mg/dL (0.2-1); TOT PROT 6.8 g/dl (6.4-8.2)
[2023-04-19 22:58] LABS: N-TERMINAL BNP 291.1 pg/ml (5-450)
[2023-04-20] MEDS ORDERED: KETOROLAC TROMETHAMINE 15 MG/ML VIAL ONE (00:45)
[2023-04-20] MEDS: KETOROLAC TROMETHAMINE 15 MG/ML VIAL IVPUSH ONE (00:53)
[2023-04-20] MEDS ORDERED: ASPIRIN 81 MG CHEWABLE TABLETS ONE (01:06)
[2023-04-20] MEDS: ASPIRIN 81 MG CHEWABLE TABLETS PO ONE (01:11)
[2023-04-20] MEDS: APIXABAN 5 MG TABLET PO ONE (01:24)
[2023-04-20] MEDS: ACETAMINOPHEN 1000 MG/100 ML BAG IVPB PRN (06:19)
[2023-04-20] MEDS: INSULIN ASPART SLIDING SCALE (NOVOLOG) 1 VIAL SQ SCH (06:45)
[2023-04-20] MEDS: VALSARTAN 160 MG TABLET PO SCH (09:13)
[2023-04-20] MEDS: METOPROLOL TARTRATE 50 MG TABLET (FP) PO SCH (09:13)
[2023-04-20] MEDS: APIXABAN 5 MG TABLET PO SCH (09:13)
[2023-04-20] MEDS: FUROSEMIDE 20 MG TABLET (FP) PO SCH (09:13)
[2023-04-20] MEDS ORDERED: METOPROLOL TARTRATE 25 MG TABLET (FP) PO SCH (10:00)
[2023-04-20] MEDS: PANTOPRAZOLE 40 MG TABLET PO SCH (15:24)
[2023-04-20] MEDS: oxyCODONE HCL 5 MG TABLET PO PRN (20:05)
[2023-04-20] MEDS: ATORVASTATIN CA 10 MG TABLET (FP) PO SCH (21:15)
[2023-04-21] MEDS ORDERED: ACETAMINOPHEN 325 MG TABLET (FP) PO PRN (04:00)
[2023-04-21 08:07] LABS: HEMATOCRIT 37.3 % (32.4-45.2); HEMOGLOBIN 12.2 GM/dL (10.7-15.3); MCHC 32.7 g/dl (32.0-36.0); MEAN CELL VOLUME 88.7 fl (80-96); MEAN PLT VOLUME 7.8 fl (7.5-11.1); PLATELET COUNT 284 10^3/uL (134-434); RDW 15.3 % (11.6-15.6); WHITE BLOOD COUNT 7.1 K/mm3 (4.0-10.0)
[2023-04-21 08:39] LABS: POTASSIUM 4.2 mmol/L (3.5-5.1)
[2023-04-21 08:52] LABS: BLOOD UREA NITROGEN 26.1 mg/dL (7-18); CALCIUM 8.5 mg/dL (8.5-10.1); MAGNESIUM 1.9 mg/dL (1.8-2.4)
[2023-04-21 08:54] LABS: PHOSPHOROUS 4.2 mg/dL (2.5-4.9)
[2023-04-21 08:57] LABS: CREATININE 0.9 mg/dL (0.55-1.3)
[2023-04-21 11:37] VITALS: RESP 18
[2023-04-21] MEDS: REGADENOSON 0.4 MG/5 ML PRE-FILLED SYRINGE IVPUSH ONE (11:45)
[2023-04-21] MEDS: PANTOPRAZOLE 40 MG TABLET PO SCH (13:20)
[2023-04-21 14:57] VITALS: BP 139/76; PULSE 103; TEMP 98.6
== END 2023-04-21 16:43 | disposition home or self-care (01) ==
LOC: JER 20:36 → JERBED 04-20 00:48 → J4S 04-20 02:43
PROVIDERS: ADMIT Internal Medicine; ATTEND Family Medicine
PROC: 3E033NZ Introduction of Analgesics, Hypnotics, Sedatives into Peripheral Vein, Percutaneous Approach (ICD-10-PCS; principal; 2023-04-20)
PROC: 3E0333Z Introduction of Anti-inflammatory into Peripheral Vein, Percutaneous Approach (ICD-10-PCS; 2023-04-20)
PROC: 3E033GC Introduction of Other Therapeutic Substance into Peripheral Vein, Percutaneous Approach (ICD-10-PCS; 2023-04-20)
DX: R07.89 Other chest pain (principal); I25.10 Atherosclerotic heart disease of native coronary artery without angina pectoris; I11.0 Hypertensive heart disease with heart failure; I48.91 Unspecified atrial fibrillation; E78.5 Hyperlipidemia, unspecified; K59.00 Constipation, unspecified; K21.9 Gastro-esophageal reflux disease without esophagitis; Z90.49 Acquired absence of other specified parts of digestive tract; Z96.653 Presence of artificial knee joint, bilateral; M19.90 Unspecified osteoarthritis, unspecified site; R73.03 Prediabetes; K80.20 Calculus of gallbladder without cholecystitis without obstruction
CPT/HCPCS: 36415; 71045-TC-FY; 71275-TC; 78452-TC; 80048; 80053; 82962; 83735; 83880; 84100; 84484; 85025; 85027; 85610; 85730; 86850; 86900; 86901; 93005; 93010; 93017; 93306-TC; 96374; 96375; 96376; 99285-25; A9502; G0378; J0131; J2785; Q9967

== ENCOUNTER 2023-05-10 13:28 | Observation (INO) | payer MEDICARE, OTHER ==
[2023-05-10] MEDS: SODIUM CHLORIDE 1,000 ML IV SCH (14:45)
[2023-05-10 14:54] LABS: INR 1.27 (0.83-1.09); PROTHROMBIN TIME (PATIENT) 14.7 SEC (9.7-13.0)
[2023-05-10 14:57] LABS: ACTIVATED PTT 33.4 SECONDS (25.2-36.5)
[2023-05-10 14:59] LABS: HEMATOCRIT 35.3 % (32.4-45.2); HEMOGLOBIN 11.8 GM/dL (10.7-15.3); MEAN CELL VOLUME 88.2 fl (80-96); POTASSIUM 4.2 mmol/L (3.5-5.1); WHITE BLOOD COUNT 6.6 K/mm3 (4.0-10.0)
[2023-05-10 15:00] LABS: BASO % 0.6 % (0-2.0); EOS % 1.3 % (0-4.5); MCH 29.6 pg (25.7-33.7); MCHC 33.5 g/dl (32.0-36.0); MONO % 9.3 % (3.8-10.2); NEUT % 61.8 % (42.8-82.8); PLATELET COUNT 259 10^3/uL (134-434); RDW 14.9 % (11.6-15.6)
[2023-05-10 15:01] LABS: ALBUMIN 3.3 g/dl (3.4-5.0); CALCIUM 8.3 mg/dL (8.5-10.1)
[2023-05-10 15:03] LABS: BLOOD UREA NITROGEN 37.8 mg/dL (7-18)
[2023-05-10 15:05] LABS: CREATININE 1.2 mg/dL (0.55-1.3)
[2023-05-10 15:06] LABS: TOT PROT 6.1 g/dl (6.4-8.2)
[2023-05-10 15:08] LABS: BILIRUBIN,TOTAL 0.3 mg/dL (0.2-1)
[2023-05-10] MEDS ORDERED: MECLIZINE HCL 25 MG TABLET (FP) ONE (16:54)
[2023-05-10] MEDS: MECLIZINE HCL 25 MG TABLET (FP) PO ONE (17:03)
[2023-05-10 17:56] LABS: OPIATES, URI NEGATIVE (NEGATIVE); URINE BARBITURATES NEGATIVE (NEGATIVE)
[2023-05-10 17:57] LABS: METHADONE, UR NEGATIVE (NEGATIVE); PHENCYCLIDINE,URINE NEGATIVE (NEGATIVE); URINE BENZODIAZEPINES NEGATIVE (NEGATIVE)
[2023-05-10 18:00] LABS: COCAINE, UR NEGATIVE (NEGATIVE); URINE AMPHETAMINES NEGATIVE (NEGATIVE)
[2023-05-10 18:19] LABS: PH,URINE 5.5 (5.0-8.0); URINE APPEARANCE CLEAR; URINE BILIRUBIN NEGATIVE (NEGATIVE); URINE COLOR YELLOW; URINE GLUCOSE (UA) NEGATIVE (NEGATIVE); URINE KETONE NEGATIVE (NEGATIVE); URINE LEUK ESTERASE NEGATIVE (NEGATIVE); URINE NITRITE NEGATIVE (NEGATIVE); URINE PROTEIN NEGATIVE (NEGATIVE); URINE UROBILINOGEN 0.2 mg/dL (0.2-1.0)
[2023-05-11 06:17] LABS: BASO % 0.4 % (0-2.0); EOS % 1.5 % (0-4.5); HEMATOCRIT 35.4 % (32.4-45.2); HEMOGLOBIN 11.8 GM/dL (10.7-15.3); LYMPH % 19.9 % (8-40); MCH 29.6 pg (25.7-33.7); MCHC 33.3 g/dl (32.0-36.0); MEAN CELL VOLUME 89.1 fl (80-96); MONO % 8.8 % (3.8-10.2); NEUT % 69.4 % (42.8-82.8); PLATELET COUNT 262 10^3/uL (134-434); RBC 3.97 M/mm3 (3.60-5.2); RDW 15.2 % (11.6-15.6); WHITE BLOOD COUNT 6.9 K/mm3 (4.0-10.0)
[2023-05-11 06:32] LABS: POTASSIUM 3.6 mmol/L (3.5-5.1)
[2023-05-11 06:34] LABS: ALBUMIN 3.2 g/dl (3.4-5.0); CALCIUM 8.3 mg/dL (8.5-10.1)
[2023-05-11 06:37] LABS: CREATININE 0.8 mg/dL (0.55-1.3)
[2023-05-11 06:39] LABS: BILIRUBIN,TOTAL 0.4 mg/dL (0.2-1); TOT PROT 5.9 g/dl (6.4-8.2)
[2023-05-11] MEDS: APIXABAN 5 MG TABLET PO SCH (10:55)
[2023-05-11] MEDS ORDERED: METOPROLOL TARTRATE 50 MG TABLET (FP) ONE (12:41)
[2023-05-11] MEDS ORDERED: PANTOPRAZOLE 40 MG TABLET PO ONE (12:41)
[2023-05-11] MEDS ORDERED: POTASSIUM CHLORIDE ORAL LIQUID 20 MEQ/15 ML ONE (12:42)
[2023-05-11] MEDS: POTASSIUM CHLORIDE ORAL LIQUID 20 MEQ/15 ML PO ONE (12:50)
[2023-05-11] MEDS: METOPROLOL TARTRATE 50 MG TABLET (FP) PO SCH (12:50)
[2023-05-11] MEDS: PANTOPRAZOLE 40 MG TABLET PO SCH (12:50)
[2023-05-11 16:46] VITALS: BMI 36.7
[2023-05-11] MEDS: ATORVASTATIN CA 40 MG TABLET (FP) PO SCH (21:12)
[2023-05-12] MEDS: ACETAMINOPHEN 325 MG TABLET (FP) PO ONE (06:57)
[2023-05-12 08:14] VITALS: BP 143/74; PULSE 93; RESP 18; TEMP 97.9
[2023-05-12 08:18] LABS: PH,URINE 5.5 (5.0-8.0); URINE APPEARANCE CLEAR; URINE BILIRUBIN NEGATIVE (NEGATIVE); URINE COLOR YELLOW; URINE GLUCOSE (UA) NEGATIVE (NEGATIVE); URINE KETONE NEGATIVE (NEGATIVE); URINE LEUK ESTERASE NEGATIVE (NEGATIVE); URINE NITRITE NEGATIVE (NEGATIVE); URINE PROTEIN NEGATIVE (NEGATIVE)
[2023-05-12] MEDS ORDERED: FUROSEMIDE 20 MG TABLET (FP) PO SCH (10:00)
[2023-05-12] MEDS ORDERED: VALSARTAN 160 MG TABLET PO SCH (10:00)
== END 2023-05-12 09:48 | disposition home or self-care (01) ==
LOC: JER 13:28 → JERBED 17:53 → J4W 05-11 15:54
PROVIDERS: ADMIT Internal Medicine; ATTEND Family Medicine
PROC: 3E0337Z Introduction of Electrolytic and Water Balance Substance into Peripheral Vein, Percutaneous Approach (ICD-10-PCS; principal; 2023-05-10)
DX: R41.82 Altered mental status, unspecified (principal); I48.91 Unspecified atrial fibrillation; M54.50 Low back pain, unspecified; G89.29 Other chronic pain; R42 Dizziness and giddiness; Z79.01 Long term (current) use of anticoagulants; K21.9 Gastro-esophageal reflux disease without esophagitis; R73.03 Prediabetes; I10 Essential (primary) hypertension; E78.5 Hyperlipidemia, unspecified; N20.0 Calculus of kidney; Z96.653 Presence of artificial knee joint, bilateral; Z29.89 Encounter for other specified prophylactic measures; Z90.49 Acquired absence of other specified parts of digestive tract
CPT/HCPCS: 36415; 70450-TC; 70496-TC; 70498-TC; 74176-TC; 80053; 80061; 80307; 81003; 82550; 82962; 83036; 83735; 84100; 84443; 84484; 85025; 85610; 85730; 86850; 86900; 86901; 87086; 93005; 93010; 96360; 99285-25; G0378; Q9967

== ENCOUNTER 2023-06-17 09:44 | Emergency (ER) | payer OTHER ==
[2023-06-17 10:20] VITALS: BMI 33.3
[2023-06-17] MEDS ORDERED: ACETAMINOPHEN INJECTION 100 ML IVPB ONE (11:04)
[2023-06-17 11:09] LABS: BASO % 0.9 % (0-2.0); HEMATOCRIT 36.3 % (32.4-45.2); HEMOGLOBIN 12.1 GM/dL (10.7-15.3); LYMPH % 24.9 % (8-40); MCH 29.7 pg (25.7-33.7); MCHC 33.3 g/dl (32.0-36.0); MEAN CELL VOLUME 89.2 fl (80-96); MEAN PLT VOLUME 8.2 fl (7.5-11.1); MONO % 10.3 % (3.8-10.2); NEUT % 60.9 % (42.8-82.8); PLATELET COUNT 254 10^3/uL (134-434); RBC 4.06 M/mm3 (3.60-5.2); RDW 14.8 % (11.6-15.6); WHITE BLOOD COUNT 6.8 K/mm3 (4.0-10.0)
[2023-06-17] MEDS: ACETAMINOPHEN 1000 MG/100 ML BAG IVPB ONE (11:38)
[2023-06-17 11:51] LABS: INR 0.99 (0.83-1.09); PROTHROMBIN TIME (PATIENT) 11.2 SEC (9.7-13.0)
[2023-06-17 11:54] LABS: ACTIVATED PTT 33.6 SECONDS (25.2-36.5)
[2023-06-17 12:06] LABS: POTASSIUM 3.9 mmol/L (3.5-5.1)
[2023-06-17 12:08] LABS: ALBUMIN 3.3 g/dl (3.4-5.0); BLOOD UREA NITROGEN 19.1 mg/dL (7-18); CALCIUM 8.8 mg/dL (8.5-10.1)
[2023-06-17 12:11] LABS: CREATININE 0.7 mg/dL (0.55-1.3)
[2023-06-17 12:13] LABS: BILIRUBIN,TOTAL 0.4 mg/dL (0.2-1); TOT PROT 6.2 g/dl (6.4-8.2)
[2023-06-17 14:37] VITALS: BP 152/103; PULSE 88; RESP 20; TEMP 98.1
== END 2023-06-17 14:38 | disposition home or self-care (01) ==
LOC: JER 09:44
PROC: 3E030NZ Introduction of Analgesics, Hypnotics, Sedatives into Peripheral Vein, Open Approach (ICD-10-PCS; principal; 2023-06-17)
DX: K43.9 Ventral hernia without obstruction or gangrene (principal); K57.10 Diverticulosis of small intestine without perforation or abscess without bleeding; R10.11 Right upper quadrant pain; R07.9 Chest pain, unspecified
CPT/HCPCS: 36415; 74177-TC; 80053; 83605; 85025; 85610; 85730; 86850; 86900; 86901; 99285-25; J0131

== ENCOUNTER 2023-07-17 10:16 | Emergency (ER) | payer OTHER ==
[2023-07-17 10:22] VITALS: BMI 33.3
[2023-07-17] MEDS ORDERED: morphine SULFATE 4 MG/ML VIAL ONE (11:00)
[2023-07-17] MEDS: morphine CARPU-JECT 4 MG/1 ML DISP.SYRIN IVPUSH ONE (11:20)
[2023-07-17 11:47] LABS: BASO % 0.6 % (0-2.0); EOS % 2.4 % (0-4.5); HEMATOCRIT 38.7 % (32.4-45.2); HEMOGLOBIN 13.1 GM/dL (10.7-15.3); LYMPH % 30.8 % (8-40); MCH 30.2 pg (25.7-33.7); MCHC 33.9 g/dl (32.0-36.0); MEAN PLT VOLUME 7.6 fl (7.5-11.1); MONO % 9.5 % (3.8-10.2); NEUT % 56.7 % (42.8-82.8); PLATELET COUNT 270 10^3/uL (134-434); RBC 4.34 M/mm3 (3.60-5.2); RDW 14.4 % (11.6-15.6); WHITE BLOOD COUNT 7.9 K/mm3 (4.0-10.0)
[2023-07-17 11:53] LABS: INR 1.03 (0.83-1.09); PROTHROMBIN TIME (PATIENT) 11.6 SEC (9.7-13.0)
[2023-07-17 11:55] LABS: ACTIVATED PTT 20.8 SECONDS (25.2-36.5)
[2023-07-17 12:04] LABS: POTASSIUM 3.9 mmol/L (3.5-5.1)
[2023-07-17 12:06] LABS: CALCIUM 8.8 mg/dL (8.5-10.1)
[2023-07-17 12:08] LABS: ALBUMIN 3.5 g/dl (3.4-5.0); BLOOD UREA NITROGEN 36.6 mg/dL (7-18)
[2023-07-17 12:11] LABS: BILIRUBIN,TOTAL 0.4 mg/dL (0.2-1)
[2023-07-17 12:12] LABS: TOT PROT 6.6 g/dl (6.4-8.2)
[2023-07-17] MEDS ORDERED: ACETAMINOPHEN INJECTION 100 ML IVPB ONE (12:14)
[2023-07-17] MEDS: ACETAMINOPHEN 1000 MG/100 ML BAG IVPB ONE (12:21)
[2023-07-17] MEDS: morphine CARPU-JECT 2 MG/1 ML DISP.SYRIN IVPUSH ONE (13:24)
[2023-07-17 14:21] LABS: URINE APPEARANCE CLEAR; URINE BILIRUBIN NEGATIVE (NEGATIVE); URINE COLOR YELLOW; URINE GLUCOSE (UA) NEGATIVE (NEGATIVE); URINE KETONE NEGATIVE (NEGATIVE); URINE LEUK ESTERASE NEGATIVE (NEGATIVE); URINE NITRITE NEGATIVE (NEGATIVE); URINE PROTEIN NEGATIVE (NEGATIVE); URINE UROBILINOGEN 0.2 mg/dL (0.2-1.0)
[2023-07-17 15:20] VITALS: BP 144/75; PULSE 75; RESP 16; TEMP 98
== END 2023-07-17 15:30 | disposition home or self-care (01) ==
LOC: JER 10:16
PROC: 3E033NZ Introduction of Analgesics, Hypnotics, Sedatives into Peripheral Vein, Percutaneous Approach (ICD-10-PCS; principal; 2023-07-17)
PROC: 3E033NZ Introduction of Analgesics, Hypnotics, Sedatives into Peripheral Vein, Percutaneous Approach (ICD-10-PCS; 2023-07-17)
PROC: 3E033NZ Introduction of Analgesics, Hypnotics, Sedatives into Peripheral Vein, Percutaneous Approach (ICD-10-PCS; 2023-07-17)
DX: M54.50 Low back pain, unspecified (principal); G89.29 Other chronic pain
CPT/HCPCS: 36415; 71045-TC-FY; 80053; 81003; 84484; 85025; 85610; 85730; 87086; 93005; 93010; 99285-25; J0131

== ENCOUNTER 2023-07-26 15:09 | Observation (INO) | payer OTHER ==
[2023-07-26 15:23] VITALS: BMI 73.3
[2023-07-26] MEDS ORDERED: KETOROLAC TROMETHAMINE 30 MG/1 ML VIAL ONE (16:29)
[2023-07-26] MEDS ORDERED: LIDOCAINE 4% PATCH TP ONE (16:29)
[2023-07-26] MEDS ORDERED: morphine SULFATE 4 MG/ML VIAL ONE (16:29)
[2023-07-26] MEDS: morphine CARPU-JECT 4 MG/1 ML DISP.SYRIN IM ONE (16:42)
[2023-07-26] MEDS: LIDOCAINE 5% TOPICAL PATCH TP ONE (16:42)
[2023-07-26] MEDS: KETOROLAC TROMETHAMINE 30 MG/1 ML VIAL IM ONE (16:43)
[2023-07-26 16:48] LABS: URINE APPEARANCE CLEAR; URINE BILIRUBIN NEGATIVE (NEGATIVE); URINE COLOR YELLOW; URINE GLUCOSE (UA) NEGATIVE (NEGATIVE); URINE KETONE NEGATIVE (NEGATIVE); URINE LEUK ESTERASE NEGATIVE (NEGATIVE); URINE NITRITE NEGATIVE (NEGATIVE); URINE PROTEIN NEGATIVE (NEGATIVE); URINE UROBILINOGEN 0.2 mg/dL (0.2-1.0)
[2023-07-26 19:35] LABS: HEMATOCRIT 38.4 % (32.4-45.2); HEMOGLOBIN 12.9 GM/dL (10.7-15.3); MCHC 33.6 g/dl (32.0-36.0); MEAN CELL VOLUME 89.4 fl (80-96); MEAN PLT VOLUME 7.7 fl (7.5-11.1); PLATELET COUNT 276 10^3/uL (134-434); RBC 4.29 M/mm3 (3.60-5.2); RDW 14.5 % (11.6-15.6)
[2023-07-26 19:36] LABS: BASO % 0.7 % (0-2.0); EOS % 2.1 % (0-4.5); LYMPH % 21.3 % (8-40); MONO % 7.5 % (3.8-10.2); NEUT % 68.4 % (42.8-82.8)
[2023-07-26] MEDS ORDERED: diazePAM 2 MG TABLET ONE (19:36)
[2023-07-26] MEDS: diazePAM 2 MG TABLET PO ONE (19:38)
[2023-07-26] MEDS ORDERED: morphine CARPU-JECT 2 MG/1 ML DISP.SYRIN IVPUSH PRN (19:54)
[2023-07-26] MEDS ORDERED: DOCUSATE SODIUM 100 MG CAPSULE (FP) PO PRN (19:54)
[2023-07-26 20:03] LABS: CALCIUM 9.3 mg/dL (8.5-10.1)
[2023-07-26 20:04] LABS: ALBUMIN 3.9 g/dl (3.4-5.0)
[2023-07-26 20:07] LABS: CREATININE 1.1 mg/dL (0.55-1.3)
[2023-07-26 20:08] LABS: BILIRUBIN,TOTAL 0.5 mg/dL (0.2-1); TOT PROT 7.2 g/dl (6.4-8.2)
[2023-07-26] MEDS: morphine SULFATE 4 MG/ML VIAL IVPUSH PRN (20:52)
[2023-07-26] MEDS: INSULIN ASPART SLIDING SCALE (NOVOLOG) 1 VIAL SQ SCH (21:51)
[2023-07-26] MEDS: LIDOCAINE PATCH REMOVAL MC SCH (21:51)
[2023-07-26] MEDS ORDERED: KETOROLAC TROMETHAMINE 15 MG/ML VIAL ONE (21:54)
[2023-07-26] MEDS: KETOROLAC TROMETHAMINE 15 MG/ML VIAL IVPUSH PRN (22:01)
[2023-07-27] MEDS ORDERED: ACETAMINOPHEN INJECTION 100 ML IVPB ONE (00:02)
[2023-07-27] MEDS: ACETAMINOPHEN 1000 MG/100 ML BAG IVPB PRN (00:10)
[2023-07-27] MEDS ORDERED: morphine SULFATE 4 MG/ML VIAL ONE (01:05)
[2023-07-27 06:34] LABS: HEMATOCRIT 38.7 % (32.4-45.2); HEMOGLOBIN 12.8 GM/dL (10.7-15.3); MCH 30.2 pg (25.7-33.7); MCHC 33.2 g/dl (32.0-36.0); MEAN CELL VOLUME 91.2 fl (80-96); MEAN PLT VOLUME 7.9 fl (7.5-11.1); PLATELET COUNT 275 10^3/uL (134-434); RBC 4.25 M/mm3 (3.60-5.2); RDW 14.5 % (11.6-15.6); WHITE BLOOD COUNT 10.5 K/mm3 (4.0-10.0)
[2023-07-27 06:41] LABS: INR 1.07 (0.83-1.09); PROTHROMBIN TIME (PATIENT) 12.3 SEC (9.7-13.0)
[2023-07-27 06:44] LABS: ACTIVATED PTT 34.1 SECONDS (25.2-36.5)
[2023-07-27 06:51] LABS: POTASSIUM 4.4 mmol/L (3.5-5.1)
[2023-07-27 06:53] LABS: CALCIUM 8.6 mg/dL (8.5-10.1)
[2023-07-27 06:54] LABS: MAGNESIUM 2.3 mg/dL (1.8-2.4)
[2023-07-27 06:57] LABS: CREATININE 1.1 mg/dL (0.55-1.3)
[2023-07-27] MEDS: METOPROLOL TARTRATE 50 MG TABLET (FP) PO SCH (10:02)
[2023-07-27] MEDS: FUROSEMIDE 20 MG TABLET (FP) PO SCH (10:02)
[2023-07-27] MEDS: DEXAMETHASONE 4 MG TABLET (FP) PO SCH (14:05)
[2023-07-27] MEDS: oxyCODONE HCL 5 MG TABLET PO PRN (14:05)
[2023-07-27] MEDS ORDERED: ACETAMINOPHEN 325 MG TABLET (FP) PO PRN (19:54)
[2023-07-27] MEDS: ATORVASTATIN CA 40 MG TABLET (FP) PO SCH (21:58)
[2023-07-27 22:02] VITALS: RESP 18
[2023-07-28] MEDS: MAG HYDROX/AL HYDROX/SIMETH 30 ML UNIT-DOSE CUP PO ONE (00:39)
[2023-07-28] MEDS ORDERED: oxyCODONE HCL 5 MG TABLET PO PRN (14:24)
[2023-07-29] MEDS: APIXABAN 5 MG TABLET PO SCH (09:51)
[2023-07-29 14:38] VITALS: BP 116/72; PULSE 70; TEMP 97.7
== END 2023-07-29 15:10 | disposition home or self-care (01) ==
LOC: JER 15:09 → JERFT 15:09 → JERBED 18:45 → J7W 07-27 01:48
PROVIDERS: ADMIT Internal Medicine; ATTEND Family Medicine
PROC: 3E033NZ Introduction of Analgesics, Hypnotics, Sedatives into Peripheral Vein, Percutaneous Approach (ICD-10-PCS; principal; 2023-07-26)
PROC: 3E013VG Introduction of Insulin into Subcutaneous Tissue, Percutaneous Approach (ICD-10-PCS; 2023-07-26)
PROC: 3E0233Z Introduction of Anti-inflammatory into Muscle, Percutaneous Approach (ICD-10-PCS; 2023-07-26)
PROC: 3E0333Z Introduction of Anti-inflammatory into Peripheral Vein, Percutaneous Approach (ICD-10-PCS; 2023-07-26)
DX: M54.9 Dorsalgia, unspecified (principal); N20.0 Calculus of kidney; E78.5 Hyperlipidemia, unspecified; I10 Essential (primary) hypertension; I48.91 Unspecified atrial fibrillation; Z68.38 Body mass index [BMI] 38.0-38.9, adult; K21.9 Gastro-esophageal reflux disease without esophagitis; Z96.653 Presence of artificial knee joint, bilateral; Z79.01 Long term (current) use of anticoagulants
CPT/HCPCS: 36415; 80048; 80053; 81003; 82962; 83735; 85025; 85027; 85610; 85730; 87086; 93005; 93010; 96372; 96374; 96375; 96376; 97116-GP; 97162-GP; 99285-25; G0378; J0131

== ENCOUNTER 2023-07-30 04:15 | Day surgery (SDC) | payer OTHER ==
[2023-07-29 15:21] VITALS: BMI 38.7
[2023-07-30] MEDS ORDERED: LIDOCAINE HCL/PF 2% SDV 5ML VIAL ONE (07:06)
[2023-07-30] MEDS ORDERED: LIDOCAINE HCL/PF 1% SDV 5ML VIAL ONE (07:06)
[2023-07-30 07:46] VITALS: RESP 16
[2023-07-30 10:19] VITALS: BP 150/70; PULSE 62; TEMP 97.7
== END 2023-07-30 10:27 | disposition home or self-care (01) ==
LOC: JASU-SURG 04:15
PROVIDERS: ATTEND Pain Medicine Pain Medicine
PROC: 01HY0MZ Insertion of Neurostimulator Lead into Peripheral Nerve, Open Approach (ICD-10-PCS; principal; 2023-07-30 08:45)
DX: G89.4 Chronic pain syndrome (principal); Z53.29 Procedure and treatment not carried out because of patient's decision for other reasons
CPT/HCPCS: 64575; C1778; 76000-TC-FY

== ENCOUNTER 2023-08-12 04:05 | Day surgery (SDC) | payer OTHER ==
[2023-08-11 11:11] VITALS: BMI 42.5
[2023-08-12] MEDS ORDERED: LIDOCAINE HCL/PF 1% SDV 5ML VIAL ONE ×2 (07:12→09:46)
[2023-08-12 08:36] VITALS: RESP 20
[2023-08-12] MEDS ORDERED: BUPIVACAINE HCL/PF 0.25% (2.5MG/ML) 10 ML VIAL ONE (09:45)
[2023-08-12] MEDS: BUPIVACAINE HCL/PF 0.25% (2.5MG/ML) 10 ML VIAL IJ ONE ×3 (10:19)
[2023-08-12] MEDS: LIDOCAINE 1% P/F 10 MG/ML VIAL INF ONE ×3 (10:19)
[2023-08-12] MEDS: ACETAMINOPHEN 500 MG TABLET (FP) PO PRN (11:08)
[2023-08-12] MEDS ORDERED: ACETAMINOPHEN 500 MG TABLET (FP) ONE (11:09)
[2023-08-12 11:25] VITALS: BP 128/84; PULSE 90; TEMP 97.3
== END 2023-08-12 11:45 | disposition home or self-care (01) ==
LOC: JASU-SURG 04:05
PROVIDERS: ATTEND Pain Medicine Pain Medicine
PROC: 01HY0MZ Insertion of Neurostimulator Lead into Peripheral Nerve, Open Approach (ICD-10-PCS; principal; 2023-08-12 10:00)
DX: G89.4 Chronic pain syndrome (principal)
CPT/HCPCS: 64575; C1778; 76000-TC-FY

== ENCOUNTER 2023-09-20 00:11 | Emergency (ER) | payer OTHER ==
[2023-09-20 00:16] VITALS: TEMP 98.1; BMI 38.9
[2023-09-20] MEDS ORDERED: LIDOCAINE 4% PATCH TP ONE (01:10)
[2023-09-20] MEDS ORDERED: METHOCARBAMOL 500 MG TABLET ONE (01:10)
[2023-09-20] MEDS ORDERED: KETOROLAC TROMETHAMINE 15 MG/ML VIAL ONE (01:10)
[2023-09-20 01:12] LABS: BASO % 0.6 % (0-2.0); EOS % 2.8 % (0-4.5); HEMATOCRIT 36.6 % (32.4-45.2); HEMOGLOBIN 12.5 GM/dL (10.7-15.3); LYMPH % 24.8 % (8-40); MCH 29.9 pg (25.7-33.7); MEAN CELL VOLUME 87.9 fl (80-96); MEAN PLT VOLUME 7.8 fl (7.5-11.1); MONO % 8.4 % (3.8-10.2); NEUT % 63.4 % (42.8-82.8); PLATELET COUNT 274 10^3/uL (134-434); RBC 4.17 M/mm3 (3.60-5.2); RDW 14.3 % (11.6-15.6); WHITE BLOOD COUNT 8.7 K/mm3 (4.0-10.0)
[2023-09-20] MEDS: METHOCARBAMOL 500 MG TABLET PO ONE (01:57)
[2023-09-20] MEDS: LIDOCAINE 4% PATCH TP ONE (01:57)
[2023-09-20] MEDS: KETOROLAC TROMETHAMINE 30 MG/1 ML VIAL IVPUSH ONE (01:57)
[2023-09-20] MEDS: METHOCARBAMOL 750 MG TAB PO ONE (01:58)
[2023-09-20 03:22] LABS: POTASSIUM 4.8 mmol/L (3.5-5.1)
[2023-09-20 03:24] LABS: CALCIUM 9.1 mg/dL (8.5-10.1)
[2023-09-20 03:25] LABS: ALBUMIN 3.6 g/dl (3.4-5.0); BLOOD UREA NITROGEN 37.2 mg/dL (7-18)
[2023-09-20 03:28] LABS: CREATININE 1.7 mg/dL (0.55-1.3)
[2023-09-20 03:29] LABS: BILIRUBIN,TOTAL 0.4 mg/dL (0.2-1); TOT PROT 6.8 g/dl (6.4-8.2)
[2023-09-20 04:04] VITALS: BP 105/60; PULSE 90
[2023-09-20 04:24] LABS: URINE APPEARANCE CLEAR; URINE BILIRUBIN NEGATIVE (NEGATIVE); URINE COLOR YELLOW; URINE GLUCOSE (UA) NEGATIVE (NEGATIVE); URINE KETONE TRACE (NEGATIVE); URINE LEUK ESTERASE NEGATIVE (NEGATIVE); URINE NITRITE NEGATIVE (NEGATIVE); URINE PROTEIN NEGATIVE (NEGATIVE); URINE UROBILINOGEN 0.2 mg/dL (0.2-1.0)
[2023-09-20 04:36] VITALS: RESP 16
[2023-09-20] MEDS: SODIUM CHLORIDE 0.9% 500 ML INFUS.BAG IV ONE (04:53)
[2023-09-20] MEDS ORDERED: LIDOCAINE PATCH REMOVAL MC SCH ×2 (13:00→22:00)
== END 2023-09-20 06:05 | disposition home or self-care (01) ==
LOC: JER 00:11
PROC: 3E033NZ Introduction of Analgesics, Hypnotics, Sedatives into Peripheral Vein, Percutaneous Approach (ICD-10-PCS; principal; 2023-09-20)
DX: M54.6 Pain in thoracic spine (principal); G89.29 Other chronic pain; M79.89 Other specified soft tissue disorders
CPT/HCPCS: 36415; 71046-TC-FY; 80053; 81003; 84443; 84484; 85025; 87086; 93005; 93010; 93971-TC; 99284-25